=== PATIENT | male | born 1945 | race Caucasian/White ===

== ENCOUNTER 2019-03-10 16:52 | Inpatient (IN) | payer MEDICARE, SELFPAY ==
[2019-03-10] VITALS (8 sets, daily range): BP systolic 107–142; BP diastolic 46–71; PULSE 62–68; RESP 12–18; TEMP 36.4–37.1; O2SAT 92–98; BMI 30.8
--- NOTE | ~2019-03-10 | US_ITS ---
EXAMINATION: US carotid duplex BI EXAM DATE: 03/11/2019 15:01 INDICATION: Altered mental status, aphasia. TECHNIQUE: Grayscale, color and pulsed Doppler images of the cervical carotid arteries were obtained . The degree of vessel stenosis is placed in one of the following categories: normal, <50% stenosis, 50-69% stenosis, >=70% stenosis but less than near-occlusion, near-occlusion, or occlusion. Note that percent stenosis relative to normal distal artery lumen diameter is indirectly measured from velocit y measurements as described by Paul, et al. Radiology 2003; 229:340-346. Comparison is made to prior examination from 12/31/2016. FINDINGS: RIGHT SIDE: Right common carotid artery peak systolic velocity (PSV in cm/s): 81 Right bulb/internal carotid artery peak systolic velocity (PSV in cm/s): 82 Right internal carotid artery end diastolic velocity (EDV in cm/s): 10 Right ICA/CCA peak systolic ratio: 1.0 Right external carotid artery peak systolic velocity (PSV in cm/s): 49 Right vertebral artery antegrade flow: yes There is mild carotid bulb plaque. Velocity and Doppler waveforms in the common and internal carotid arteries is normal. LEFT SIDE: Left common carotid artery peak systolic velocity (PSV in cm/s): 37 Left bulb/internal carotid artery peak systolic velocity (PSV in cm/s): 102 Left internal carotid artery end diastolic velocity (EDV in cm/s): 16 Left ICA/CCA peak systolic ratio: 2.7 Left external carotid artery peak systolic velocity (PSV in cm/s): 148 Left vertebral artery antegrade flow: yes There is mild carotid bulb plaque. Velocity and Doppler waveforms in the common and internal carotid arteries is normal. IMPRESSION: 1. Less than 50 percent stenosis in the right internal carotid artery. 2. Less than 50 percent stenosis in the left internal carotid artery. > Reviewed, dictated and finalized at location A. TLE FILLER
--- NOTE | ~2019-03-10 | MR_ITS ---
EXAMINATION: MR cervical spine wo con EXAM DATE: 03/12/2019 13:23 INDICATION: Paraplegia. Altered mental status. TECHNIQUE: Multi-sequential, multiplanar MR images of the cervical spine were obtained without contra st. Axial T2, axial T2 MERGE sequence. Sagittal T1, T2, T2 fat saturation images also obtained. Th ere is no prior study for comparison. FINDINGS: Exam is limited due to motion. The C3 and 4 vertebral bodies appear partially fused. C5-7 vertebral bodies also likely partially fused. There is moderate loss of the C4-5 disc height with mil dly bulging disc, mild central canal stenosis and probably at least moderate bilateral neural foramin al stenosis at that level. Lesser spondylosis at other levels. The vertebral bodies are aligned in th e AP dimension. The spinal cord signal intensity and intrinsic morphology is normal. Cervicomedullary junction is normal in appearance. Level by level evaluation: Motion makes axial images essentially uninterpretable. IMPRESSION: C4-5 mild central canal stenosis and at least moderate neural foraminal stenosis. Lesser spondylosis other levels. Normal cord signal. Reviewed, dictated and finalized at location A. IAC CATH TECHNOLOGIST IMPRESSION: C4-5 mild central canal stenosis and at least moderate neural fora tyrel stenosis. Lesser spondylosis other levels. Normal cord signal.
--- NOTE | ~2019-03-10 | MR_ITS ---
EXAMINATION: MR lumbar spine wo con EXAM DATE: 03/12/2019 13:23 INDICATION: Paraplegia. Low back pain. TECHNIQUE: Multi-sequential, multiplanar MR images of the lumbar spine were obtained without contrast . Sagittal T1, T2, T2 fat saturation images. Axial T2 weighted images. There is no prior study for comparison. FINDINGS: Exam is severely limited from motion. There is mild to moderate lumbar disc disease. Possib le moderate mid lumbar central canal stenosis L2-3, L3-4 and L4-5. L3-4 moderate bilateral neural for aminal stenosis, probably less at the other lumbar levels. Overall mild to moderate lumbar facet arth ropathy. IMPRESSION: Significantly limited exam with overall moderate lumbar spondylosis. Reviewed, dictated and finalized at location A. MOTIVE LOT ATTENDANT IMPRESSION: Significantly limited exam with overall moderate lumbar spondylosi s.
--- NOTE | ~2019-03-10 | MR_ITS ---
EXAMINATION: MR brain/brain stem wo con EXAM DATE: 03/11/2019 13:05 INDICATION: Expressive aphasia. Slurred speech. TECHNIQUE: Magnetic resonance imaging (MRI) of the brain/brain stem obtained without contrast. Cari al T1, axial diffusion, gradient echo (T2*), T1, T2, FLAIR sequences obtained. Comparison is made to prior examination from 06/18/2017. FINDINGS: Study is limited due to patient motion. There is no acute intraparenchymal hemorrhage. No evidence of intraparenchymal brain mass lesion. No evidence of acute infarction. Please note that i nitial head CT has limited sensitivity for small or acute infarctions. There is mild periventricular and subcortical hypodensity, nonspecific but probably related to small vessel ischemic disease. The re is ventricular prominence out of proportion to sulci which is suspected most likely central atroph y rather than hydrocephalus. Normal pressure hydrocephalus cannot be excluded (clinical triad ataxia /gait disturbance, dementia, urinary incontinence). There is intracranial carotid arteriosclerosis. There are no extra-axial collections. There is no mass effect or midline shift. The orbits are un remarkable. Soft tissue is unremarkable. The visualized sinuses and mastoid air cells are well aera brook. There is no interval change. IMPRESSION: 1. No acute intracranial findings. 2. Chronic age related findings. Reviewed, dictated and finalized at location A. ER REGISTRAR
--- NOTE | ~2019-03-10 | XR_ITS ---
EXAMINATION: XR chest 1V portable EXAM DATE: 03/10/2019 18:32 INDICATION: Transient alteration of awareness. Shortness of breath. TECHNIQUE: Portable AP frontal chest x-ray was obtained. Comparison is made to prior examination from 05/07/2018. FINDINGS: Scattered mild to moderate bibasilar airspace disease, some of which is chronic left basila r atelectasis or scarring. Overall similar appearance compared to study from April by last year. Diff icult to exclude superimposed edema or pneumonia. There is no pneumothorax suspected. Cardiomediastin al silhouette is normal. There are bony degenerative changes. IMPRESSION: Scattered mild to moderate bibasilar airspace disease, similar appearance compared to pr ior exam, at least partly chronic atelectasis or scarring. Difficult to exclude superimposed acute pr ocess. Reviewed, dictated and finalized at location A. RIAL INSPECTOR IMPRESSION: Scattered mild to moderate bibasilar airspace disease, similar yanira earance compared to prior exam, at least partly chronic atelectasis or scarring . Difficult to exclude superimposed acute process.
--- NOTE | ~2019-03-10 | CT_ITS ---
EXAMINATION: CT brain wo con EXAM DATE: 03/10/2019 18:53 INDICATION: Transient alteration of awareness. Confusion. TECHNIQUE: Spiral CT of the head was performed without contrast. Axial, coronal and sagittal images were reviewed. The dose-length product (DLP) for this examination was 681.00 mGy-cm. The exposure w as tailored according to patient size, and iterative reconstruction (ASIR) was used as additional dos e reduction technique. Comparison is made to prior examination from 09/07/2017. FINDINGS: There is no acute intraparenchymal hemorrhage. No evidence of intraparenchymal brain mass lesion. No evidence of acute infarction. Please note that initial head CT has limited sensitivity f or small or acute infarctions. There is mild periventricular and subcortical hypodensity, nonspecific but probably related to small vessel ischemic disease. There is moderate prominence of the sulci a nd ventricles related to cerebral atrophy. There is intracranial carotid arteriosclerosis. There a re no extra-axial collections. There is no mass effect or midline shift. The orbits are unremarkabl e. Soft tissue is unremarkable. The visualized sinuses and mastoid air cells are well aerated. IMPRESSION: 1. No acute intracranial findings. 2. Chronic age related findings. Reviewed, dictated and finalized at location A. QUE FURNITURE RESTORER
--- NOTE | 2019-03-10 17:20 | ECG_ITS ---
Measurements Intervals Mallie Rate: 64 P: 30 RI: 245 QRS: 60 QRSD: 117 T: 83 QT: 456 QTc: 471 Interpretive Statements SINUS RHYTHM WITH FIRST DEGREE AV BLOCK INCOMPLETE RIGHT BUNDLE BRANCH BLOCK BORDERLINE R WAVE PROGRESSION, ANTERIOR LEADS ST-T WAVE ABNORMALITY IN ANTERIOR LEADS- CONSIDER ISCHEMIA ABNORMAL ECG Electronically Signed On 03-10-2019 19:45:00 COLOR DRUM WORKER by Luis M Hurd D.O.
[2019-03-10 17:32] LABS: Basophils Absolute Auto 0.1 K/mm3 (0.0-0.1); Basophils Percent Auto 1.3 % (0.2-1.2); Eosinophils Absolute Auto 0.3 K/mm3 (0-0.3); Eosinophils Percent Auto 3.4 % (0-4.4); Hematocrit 39.6 % (42.0-52.0); Immature Granulocyte Absolute 0.03 K/mm3 (0.00-0.031); Immature Granulocyte Percent A 0.4 % (0-0.5); Lymphocytes Absolute Auto 2.77 K/mm3 (0.9-3.2); Lymphocytes Percent Auto 33.3 % (18.3-44.2); Mean Corpuscular HGB Conc 32.8 g/dl (32-36); Mean Corpuscular Hemoglobin 30.2 pg (26-34); Mean Corpuscular Volume 91.9 fl (80-100); Mean Platelet Volume 8.8 fl (7.4-10.4); Monocytes Absolute Auto 0.8 K/mm3 (0.1-0.6); Monocytes Percent Auto 9.5 % (2.6-8.5); Neutrophils Absolute Auto 4.3 K/mm3 (1.3-6.7); Neutrophils Percent Auto 52.1 % (45.5-73.1); Platelet Count Result 284 k/mm3 (150-375); Red Blood Count 4.31 M/mm3 (4.6-6.20); Red Cell Distribution Width 12.4 % (11.5-14.5); White Blood Count 8.3 K/mm3 (4.5-10.0)
[2019-03-10 17:45] LABS: Alanine Aminotransferase 14 U/L (4-50); Alkaline Phosphatase 66 U/L (38-126); Aspartate Amino Transferase 31 U/L (17-59); Bilirubin,Total 0.5 mg/dL (0.2-1.3); Blood Urea Nitrogen 21 mg/dL (9-20); Calcium 9.4 mg/dL (8.4-10.2); Carbon Dioxide 30 mmol/L (22-30); Chloride 92 mmol/L (98-107); Estimated Glomerular Filt Rate > 60; Glucose 83 mg/dL (75-110); Potassium 4.5 mmol/L (3.4-5.0); Sodium 132 mmol/L (137-145)
--- NOTE | 2019-03-10 18:09 | ED.WEAKNESS ---
HPI - Weakness General Chief complaint: Weakness Stated complaint: weakness Time Seen by Provider: 03/10/19 18:00 Source: patient, family (Son at bedside) and RN notes reviewed Mode of arrival: wheelchair Limitations: no limitations History of Present Illness HPI Narrative: Pt is a 73 y/o male presenting to the ED c/o generalized weakness. Pt reports he has been experiencing generalized weakness and BLE swelling recently. Pt's son notes the pt has someone form home health care come to his house 3 times a week and has been noting the pt has had difficulty answering questions or responding appropriately. Per son, the pt was unable to state his birthday and was not making sense earlier today at 1500. Pt's son reports the pt was seen by his PCP 2 weeks ago where he was prescribed a muscle relaxer, and notes the pt has been taking them for the past week or so but does not know when exactly he took his last dose. Per son, the pt has not been exhibiting cold Sx's, but does have a rash and a possible yeast infection on his groin in which his PCP is aware of. Pt denies SOB and states he is unable to lay supine due to arthritis pain. Per son, the pt has a Hx of hypothyroid. Onset (ago): unknown Location: generalized Associated symptoms: confusion (Per son), rash (on groin) and other (BLE swelling) Related Data Allergies Allergy/AdvReac Type Severity Reaction Status Date / Time Penicillins Allergy Unknown Verified 09/01/17 12:17 Review of Systems Review of Systems: All systems reviewed & are unremarkable except as noted in HPI and below Constitutional: Constitutional: Reports weakness (Generalized) Respiratory: Respiratory: Denies dyspnea Integumentary/Breasts: Skin/Breast: Reports swelling (BLE) and Reports rash (on groin) Neurologic: Reports confusion (Per son) [facility] Past Medical History Medical History Arthritis BPH (benign prostatic hyperplasia) Cataract CHF (congestive heart failure) Cyst Removed Depression Diabetes mellitus Foot fracture, right Gallbladder disease HLD (hyperlipidemia) HTN (hypertension) Hypothyroid Pneumonia Seasonal allergies Surgical History Surgical History H/O left knee surgery History of cholecystectomy Social History Social History Smoking status: Former smoker Smoking end date: 02/16/04 Alcohol intake: current Exam Narrative: Exam Narrative: APPEARANCE: No acute distress, nontoxic, resting in bed EYES: EOMI HEENT: Normocephalic, atraumatic, OMM RESPIRATORY: No respiratory distress crackles in bilateral lung bases, no rhonchi CARDIOVASCULAR: Regular rate and rhythm without murmurs rubs or gallops. ABDOMINAL: Soft, nontender, nondistended, no rebound or guarding MUSCULOSKELETAl: Moves all extremities. No clubbing, cyanosis 3+ edema of the bilateral lower extremities NEURO: Awake and alert x 3. Following commands, speech normal, no focal deficits SKIN:: Warm, dry. No rashes lesions or abrasions PSYCHIATRIC: Normal affect/mood, Course Course Emergency Course: Discussed with son. Patient had been to PCP earlier this week secondary to chronic bad back and be placed on Flexeril. He states he called earlier today and the patient has been very confused she has been increasingly weak over the past week as well as have increased swelling in his legs Discussed with patient and family results of workup and diagnosis. Discussed need for admission. Patient and family understand and agree to current treatment plan Consultations Consultation #1: Discussed case with Hospitalist Dr. Luke. Accepted the pt for admission. Date: 03/10/19 Time: 21:38 Vital Signs Vital signs: Vital Signs Temperature 98.0 F 03/10/19 17:00 Pulse Rate 66 03/10/19 17:00 Respiratory Rate 15 03/10/19 17:00 Blood Pressure 107/59 L 03/10/19 17:00 Pulse Oximetry 95 03/10/19 17:00
[2019-03-10 18:36] LABS: Prothrombin Time 13.2 Seconds (11.1-14.7)
[2019-03-10 18:37] LABS: Partial Thromboplastin Time 39.2 SECONDS (22.3-36.8)
[2019-03-10 18:44] LABS: NT Pro B Type Natriuretic Pept 1640 PG/ML (5-100)
[2019-03-10 19:39] LABS: Add Urine Microscopic? YES; Appearance Urine Clear (Clear); Bilirubin Urine Negative (Negative); Blood Urine Negative (Negative); Color Urine Yellow (Yellow); Glucose Urine UA Negative (Negative); Ketones Urine Negative (Negative); Leukocyte Esterase Ur Negative LEU/UL (Negative); Mucus Urine Rare /lpf; Nitrate Urine Negative (Negative); Protein Urine 1+ mg/dL (Negative); Urobilinogen Urine Negative mg/dL (<2.0); WBC Urine 0-3 /hpf
--- NOTE | 2019-03-10 19:41 | PC.NURSE ---
Assumed care of pt at this time. report from Sri REYES RN
[2019-03-10 20:39] LABS: Troponin I < 0.012 ng/mL (0.000-0.034)
[2019-03-10] MEDS: FUROSEMIDE INJ 40 MG/4 ML VIAL IV PUSH (22:15)
--- NOTE | 2019-03-10 23:32 | ADMGEN ---
This patient, Joe Vigil, was admitted to 3 [facility] Surg Room 323-01 at 2310. Patient/family oriented to hospital policies and general routines including ID bracelet, bed and alarms, visiting hours, pain management, procedures, bathroom and other care routines, personal items, smoking policy, room service/diet, and visiting hours. Valuables list has been completed. Information on how to activate the Rapid Response Team has been discussed. Patient/Family are encouraged to report perceived risks to care and to ask questions if they do not understand what they are told or what they should do.
[2019-03-11] VITALS (8 sets, daily range): BP systolic 131–136; BP diastolic 52–61; PULSE 60–72; RESP 18–20; TEMP 36.5–36.8; O2SAT 95–98
--- NOTE | 2019-03-11 | ECHO_ITS ---
Patient Info Name: Joe Vigil Age: 73 years : 1945 Gender: Male Ht: 71 in Wt: 223 lbs BSA: 2.28 m2 BP: 136 / 52 mmHg Heart Rhythm: Sinus Rhythm Technical Quality: Poor Exam Date: 03/11/2019 2:20 PM Exam Location: [facility] Pulmonary Patient Status: Inpatient Admit Date: 03/11/2019 Staff Ordering Physician: Meme Jordan PA-C Instructor Traffic Safety: Stephanie Byrd RDCS Attending Provider: Meme Jordan PA-C Referring Physician: Nikki DE LA TORRE; Exam Type: CA echo dop bubble study w con Study Info Complete two-dimensional, color flow and Doppler transthoracic echocardiogram is performed with contrast to opacify the left ventrical and to improve the deliniation of the left ventrical endocarial boarders. Complete two-dimensional, color flow and Doppler transthoracic echocardiogram is performed with agitated saline. Contrast/Agitated Saline Contrast/Ag. Saline: Agitated Saline Amount: 2.00 ml Reason for Poor Study: patient body habitus Summary 1. Left ventricular chamber dimension is normal. 2. Left ventricular systolic function is normal, estimated at >70%. 3. There is mildly increased left ventricular wall thickness. 4. The left ventricular diastolic function is grade II diastolic dysfunction. 5. More pronounced basal septal hypertrophy is seen. 6. Right ventricular chamber dimension is moderately enlarged. 7. Left atrial chamber dimension is severely enlarged. 8. Right atrial chamber dimension is moderately enlarged. 9. Intact interatrial septum visualized by agitated saline imaging. 10. There is mild to moderate mitral valve regurgitation. 11. There is moderate aortic valve calcification. 12. There is moderate aortic valve regurgitation. 13. There is mild tricuspid valve regurgitation. 14. There is mild pulmonic regurgitation. Left Ventricle Left ventricular chamber dimension is normal. Left ventricular systolic function is normal, estimated at >70%. There is mildly increased left ventricular wall thickness. The left ventricular diastolic function is grade II diastolic dysfunction. More pronounced basal septal hypertrophy is seen. Right Ventricle Right ventricular chamber dimension is moderately enlarged. Right ventricular systolic function is normal. Left Atria Left atrial chamber dimension is severely enlarged. Right Atria Right atrial chamber dimension is moderately enlarged. Atrial Septum Intact interatrial septum visualized by agitated saline imaging. Aortic Valve The aortic valve is trileaflet. There is no aortic valve stenosis. There is moderate aortic valve regurgitation. There is moderate aortic valve calcification. Pulmonic Valve The pulmonic valve is normal. There is no pulmonic valve stenosis. There is mild pulmonic regurgitation. Mitral Valve The mitral valve has thickened leaflets and calcified annulus. There is no mitral valve stenosis. There is mild to moderate mitral valve regurgitation. Tricuspid Valve The tricuspid valve leaflets are normal. There is no significant tricuspid valve stenosis. There is mild tricuspid valve regurgitation. Pericardium/Pleural The pericardium appears normal. There is trivial pericardial effusion. Aorta The aortic root size at the sinus of Valsalva is normal. Left Ventricular Outflow Tract Name Value Norm
[2019-03-11 01:37] LABS: Troponin I < 0.012 ng/mL (0.000-0.034)
[2019-03-11 04:05] LABS: Basophils Absolute Auto 0.1 K/mm3 (0.0-0.1); Basophils Percent Auto 1.3 % (0.2-1.2); Eosinophils Absolute Auto 0.2 K/mm3 (0-0.3); Hematocrit 37.5 % (42.0-52.0); Hemoglobin 12.5 g/dL (14.0-18.0); Immature Granulocyte Absolute 0.03 K/mm3 (0.00-0.031); Immature Granulocyte Percent A 0.4 % (0-0.5); Lymphocytes Absolute Auto 2.59 K/mm3 (0.9-3.2); Lymphocytes Percent Auto 32.6 % (18.3-44.2); Mean Corpuscular HGB Conc 33.3 g/dl (32-36); Mean Corpuscular Hemoglobin 30.3 pg (26-34); Mean Corpuscular Volume 90.8 fl (80-100); Mean Platelet Volume 9.2 fl (7.4-10.4); Monocytes Absolute Auto 0.9 K/mm3 (0.1-0.6); Monocytes Percent Auto 11.6 % (2.6-8.5); Neutrophils Absolute Auto 4.1 K/mm3 (1.3-6.7); Neutrophils Percent Auto 51.1 % (45.5-73.1); Platelet Count Result 280 k/mm3 (150-375); Red Blood Count 4.13 M/mm3 (4.6-6.20); Red Cell Distribution Width 12.3 % (11.5-14.5); White Blood Count 7.9 K/mm3 (4.5-10.0)
[2019-03-11 04:17] LABS: Blood Urea Nitrogen 23 mg/dL (9-20); Calcium 9.1 mg/dL (8.4-10.2); Carbon Dioxide 27 mmol/L (22-30); Chloride 95 mmol/L (98-107); Estimated CRCL calculation 73 ml/min; Estimated Glomerular Filt Rate > 60; Glucose 90 mg/dL (75-110); Potassium 4.7 mmol/L (3.4-5.0); Sodium 133 mmol/L (137-145)
[2019-03-11 04:30] LABS: Troponin I < 0.012 ng/mL (0.000-0.034)
[2019-03-11] MEDS: LEVOTHYROXINE SODIUM 25 MCG TABLET PO (06:49)
--- NOTE | 2019-03-11 08:30 | PM.IMHP ---
H&P: HPI History of Present Illness Chief complaint: CHF, altered mental status Narrative: Joe Vigil is a 73 year old male with history of hypertension, diabetes mellitus type 2, right-sided congestive heart failure, liver cirrhosis, who presented to the emergency room with symptoms of altered mental status. The patients son, Srinivasa, reports the patient lives alone and he talks to him on the phone 2-3 times per day. Reports 2 weeks ago he saw a primary care provider, not his normal PCP Dr. Harvey but someone else who ordered x-rays for his arthritis in his hips, knees and back and then prescribed the patient Flexeril. Then, over the last 1.5 weeks the patient had been calling him more frequently and acting a little off and more weak. The patient has a caregiver that sees him 3 times per week and had been noticing a worsening decline this week in particular. When the son called yesterday, the patient seemed off and reported he had not been sleeping at all because he is dreaming all night, did not know his birthday, and was telling stories. Patient was then brought to the emergency room for further evaluation and treatment. Initial vitals showed temperature 98?, blood pressure 107/59, heart rate 66, respiratory rate 15, oxygen saturation 95 % on room air. Initial labs showed slight normocytic anemia with a hemoglobin 13, hematocrit 39.6, normal coag other than slightly elevated PTT at 39.2. CMP showed a hyponatremia at 132, otherwise normal. BNP was 1640. Negative troponin x2. Urinalysis showed 1+ protein otherwise normal. Chest x-ray showed scattered mild to moderate bibasilar airspace disease which could be consistent with chronic atelectasis or scarring along with possible acute process. CT brain showed no acute intracranial findings and chronic age-related findings. Patient EKG on arrival showed normal sinus rhythm with first-degree AV block heart rate is 64, incomplete right bundle branch block, some T-wave inversions V1 through V5 and aVL. No acute ST elevation or depression. The patient was admitted into the hospital under observation further workup and evaluation for generalized weakness, altered mental status, and to rule out possible CVA. Code status: Full code POA: Srinivasa Vigil PCP: Dr. Harvey Review of Systems Review of Systems: Narrative: The patient recently had a yeast infection of his groin and was placed on Diflucan/Nystatin. Normally, the patient has trouble going from sitting to standing due to his arthritis. He has a caregiver that comes in 3 times per week for 4 hours and will be increased to 5 times per week. He does fall every once in a while, once every month to two months. He walks with a walker and has a chair in his room and it is hard for him to get out, but he also has a chair lift in the living room he could use. The patient is suppose to starting PT Wednesday at [facility]. All systems reviewed & are unremarkable except as noted in HPI and below PMFSH Past Medical History Medical History Abdominal aortic aneurysm Arthritis BPH (benign prostatic hyperplasia) Cataract CHF (congestive heart failure) Echo 04/2018 showed normal EF 60%, severe enlargement of right ventrile and severe ventricular hypokinesis. Cirrhosis Cyst Removed Depression Diabetes mellitus Foot fracture, right Gallbladder disease HLD (hyperlipidemia) HTN (hypertension) Hypothyroid Pneumonia Seasonal allergies Severe pulmonary arterial systolic hypertension Surgical History Surgical History H/O left knee surgery History of cholecystectomy History of esophagogastroduodenoscopy (EGD) 04/2018 showing gastritis Family History Family History Sibling Colon cancer Mother Congestive heart failure Father Acute myocardial infarction Social History Social History (Revi
[2019-03-11 10:22] LABS: Ammonia < 9 umol/L (9-30)
[2019-03-11] MEDS: TAMSULOSIN HCL 0.4 MG CAPSULE PO (12:03)
[2019-03-11] MEDS: THERAPEUTIC MULTIVITAMINS/MINERALS TAB (*BKC) 1 TABLET PO (12:03)
[2019-03-11] MEDS: PANTOPRAZOLE 40 MG TABLET PO (12:04)
[2019-03-11] MEDS: SPIRONOLACTONE 25 MG TABLET PO (12:04)
[2019-03-11] MEDS: FERROUS SULFATE DRIED 142 MG TABCR PO (12:04)
[2019-03-11] MEDS: MELOXICAM 7.5 MG TABLET 15 MG PO (12:05)
[2019-03-11] MEDS: FINASTERIDE 5 MG TABLET PO (12:05)
[2019-03-11] MEDS: ATORVASTATIN 40 MG TABLET PO (12:05)
[2019-03-11] MEDS: FOLIC ACID 0.4 MG TABLET 0.8 MG PO (12:06)
[2019-03-11] MEDS: ASPIRIN 81 MG ENTERIC TABLET PO (12:09)
[2019-03-11] MEDS: ESCITALOPRAM OXALATE 10 MG TABLET PO (12:09)
[2019-03-11] MEDS: TOLNAFTATE 1% POWDER 45 GM BTL 1 APPLIC TOPICAL ×2 (12:10→16:16)
[2019-03-11] MEDS: PERFLUTREN LIPID MICROSPHERES 1.5 ML VIAL DILUTED TO 10 ML TOTAL VOLUME (15:36)
[2019-03-11 17:01] LABS: Glucose Point of Care 86 (65-105)
--- NOTE | 2019-03-11 17:44 | WPDNEURCNPN ---
Assessment and Plan Assessment and plan (1) Generalized weakness: Code(s): R53.1 - Weakness Status: Acute (2) Diabetes mellitus: Code(s): E11.9 - Type 2 diabetes mellitus without complications Status: Acute (3) HLD (hyperlipidemia): Code(s): E78.5 - Hyperlipidemia, unspecified Status: Acute (4) HTN (hypertension): Code(s): I10 - Essential (primary) hypertension Status: Acute (5) Cirrhosis: Code(s): K74.60 - Unspecified cirrhosis of liver Status: Acute (6) CHF (congestive heart failure): Code(s): I50.9 - Heart failure, unspecified Status: Acute (7) Altered mental status: Code(s): R41.82 - Altered mental status, unspecified Status: Acute (8) Encephalopathy: Code(s): G93.40 - Encephalopathy, unspecified Status: Acute (9) Dementia: Code(s): F03.90 - Unspecified dementia without behavioral disturbance Status: Acute Additional Plan based on the history I obtained I need to rule out that the patient does not have cervical myelopathy and daughter significant lumbar canal stenosis which is hampering his activities at home although he does have an of arthritic changes in his knees and the hips that would be responsible for him being sedentary his mental status is not quite normal it is possible it could be drug effect or it might be that he has been slowly developing dementia along with gait disorder I will examine him again tomorrow and will go from there Pertinent labs and the MRIs have been ordered Consult date: 03/11/19 Time Seen: 17:00 HPI: Joe Vigil is a 73 year old male home I am consulted for changes in the mental status, patient himself is confused but denies any headache nausea vomiting chest pain or shortness of breath The history is obtained from the son and also the record patient has been essentially sedentary for quite some time has been using walker for about a year so initially using a cane and sits most of the time in a recliner he was brought in because of the change in the mental status and had a brain MRI performed which is negative for any evidence of stroke and I do not find any evidence of expressive or receptive aphasia Review of Systems Review of Systems: All systems reviewed & are unremarkable except as noted in HPI and below PMFSH Past Medical History Medical History Abdominal aortic aneurysm Arthritis BPH (benign prostatic hyperplasia) Cataract CHF (congestive heart failure) Echo 04/2018 showed normal EF 60%, severe enlargement of right ventrile and severe ventricular hypokinesis. Cirrhosis Cyst Removed Depression Diabetes mellitus Foot fracture, right Gallbladder disease HLD (hyperlipidemia) HTN (hypertension) Hypothyroid Pneumonia Seasonal allergies Severe pulmonary arterial systolic hypertension Surgical History Surgical History H/O left knee surgery History of cholecystectomy History of esophagogastroduodenoscopy (EGD) 04/2018 showing gastritis Family History Family History Sibling Colon cancer Mother Congestive heart failure Father Acute myocardial infarction Social History Social History Smoking packs per day: 1 Smoking cigarettes per day: 20.0 Years smoked: 40 Smoking pack-years: 40.00 Smoking status: Former smoker Tobacco type: cigarettes Smoking end date: 02/16/04 Alcohol use details: He no longer drinks alcohol. Substance use: never Living arrangements: alone Additional living arrangements comments: He lives in [place] alone and had caregivers that come 3 times per week. His in 05/2017. He has one son, Srinivasa. Occupation/Education: retired Additional occupation/education comments: Use to work for a [employer]
[2019-03-11 19:45] LABS: Creatine Kinase 349 U/L (55-170)
[2019-03-11 20:56] LABS: Folic Acid > 20.0 ng/mL (2.76->20)
[2019-03-12] VITALS (9 sets, daily range): BP systolic 110–132; BP diastolic 49–55; PULSE 65–69; RESP 14–20; TEMP 36.4–36.6; O2SAT 97–99; BMI 10.0
[2019-03-12 00:33] LABS: Glucose Point of Care 97 (65-105)
[2019-03-12 06:20] LABS: Hemoglobin 12.7 g/dL (14.0-18.0); Mean Corpuscular HGB Conc 33.4 g/dl (32-36); Mean Corpuscular Hemoglobin 30.4 pg (26-34); Mean Corpuscular Volume 90.9 fl (80-100); Mean Platelet Volume 9.1 fl (7.4-10.4); Platelet Count Result 249 k/mm3 (150-375); Red Blood Count 4.18 M/mm3 (4.6-6.20); Red Cell Distribution Width 12.1 % (11.5-14.5); White Blood Count 9.8 K/mm3 (4.5-10.0)
[2019-03-12 06:37] LABS: Alanine Aminotransferase 16 U/L (4-50); Albumin Level 3.8 g/dL (3.5-5.1); Alkaline Phosphatase 76 U/L (38-126); Aspartate Amino Transferase 40 U/L (17-59); Bilirubin,Total 0.6 mg/dL (0.2-1.3); Blood Urea Nitrogen 25 mg/dL (9-20); Carbon Dioxide 24 mmol/L (22-30); Chloride 93 mmol/L (98-107); Estimated CRCL calculation 73 ml/min; Estimated Glomerular Filt Rate > 60; Glucose 87 mg/dL (75-110); Potassium 4.3 mmol/L (3.4-5.0); Sodium 129 mmol/L (137-145)
[2019-03-12] MEDS: LEVOTHYROXINE SODIUM 25 MCG TABLET PO (06:39)
[2019-03-12 06:56] LABS: Hemoglobin A1C 5.5 % (<5.7)
[2019-03-12 08:39] LABS: Glucose Point of Care 79 (65-105)
[2019-03-12] MEDS: FOLIC ACID 0.4 MG TABLET 0.8 MG PO (09:15)
[2019-03-12] MEDS: PANTOPRAZOLE 40 MG TABLET PO (09:16)
[2019-03-12] MEDS: TAMSULOSIN HCL 0.4 MG CAPSULE PO (09:16)
[2019-03-12] MEDS: SPIRONOLACTONE 25 MG TABLET PO (09:19)
[2019-03-12] MEDS: ESCITALOPRAM OXALATE 10 MG TABLET PO (09:19)
[2019-03-12] MEDS: ATORVASTATIN 40 MG TABLET PO (09:23)
[2019-03-12] MEDS: ASPIRIN 81 MG ENTERIC TABLET PO (09:23)
[2019-03-12] MEDS: FINASTERIDE 5 MG TABLET PO (09:24)
[2019-03-12] MEDS: FERROUS SULFATE DRIED 142 MG TABCR PO (09:24)
[2019-03-12] MEDS: THERAPEUTIC MULTIVITAMINS/MINERALS TAB (*BKC) 1 TABLET PO (09:24)
[2019-03-12] MEDS: TOLNAFTATE 1% POWDER 45 GM BTL 1 APPLIC TOPICAL ×2 (09:26→17:27)
[2019-03-12 11:46] LABS: Glucose Point of Care 80 (65-105)
[2019-03-12] MEDS: LORAZEPAM INJ 2 MG/ML VIAL (12:50)
--- NOTE | 2019-03-12 15:01 | PM.IMPN ---
Progress Note: A&P Assessment and Plan (1) Altered mental status: Code(s): R41.82 - Altered mental status, unspecified Status: Acute Assessment and Plan: The patient presented with some altered mental status which has been going on for the last week and a half but recently became worse. Patient's family reports his recently placed on Flexeril muscle relaxant and Mobic which could be a possible cause to his altered mental status and generalized weakness. Also on the differential could be acute CVA since he has expressive aphasia and trouble following commands, currently there are no signs of acute infection to be the cause, he has cirrhosis and we will check an ammonia level. Currently the patient is alert oriented x4. Patient's ammonia level was normal, vitamin B12 normal, folic acid normal. TSH is slightly elevated at 5.530, and free T4 is pending. Continue holding any medications that could cause altered mental status. Dr. Hernandez neurology evaluated the patient yesterday and ordered further testing which included cervical spine MRI and lumbar spine MRI to rule out cervical myelopathy and lumbar canal stenosis. Status Q 4 hours. Continue monitoring the patient's symptoms and further workup will be completed as underlying cause. (2) Expressive aphasia: Code(s): R47.01 - Aphasia Status: Acute Assessment and Plan: On examination the patient has some expressive aphasia, slight slurred speech and trouble following commands. Patient's MRI showed no acute CVA, chronic age-related findings. Carotid Dopplers showed less 50% stenosis bilaterally. Echocardiogram showed normal LV systolic function greater than 70%, mildly increased LV wall thickness, LV diastolic dysfunction grade 2. Speech bedside evaluation completed and normal. Dr. Hernandez did not feel that the patient had any abnormality to his speech. Continue monitoring the patient's neuro checks q.4 hours. Continue monitoring his symptoms. (3) Generalized weakness: Code(s): R53.1 - Weakness Status: Acute Assessment and Plan: Family reports increased weakness over the last few weeks could be from sedative medication or from the patient being less mobile than normal secondary to trouble getting out of his recliner chair. Patient's son reports sometimes he cannot get out of his recliner and sits in it for about 12 hours. The patient was supposed to start physical therapy as an outpatient this next week. I have ordered physical therapy and occupational therapy evaluation and treatment. Continue monitoring. (4) Urinary retention: Code(s): R33.9 - Retention of urine, unspecified Status: Acute Assessment and Plan: The patient was noted to have urinary retention yesterday. The patient is on Flomax and finasteride daily. A Farrell catheter was placed secondary to urinary retention. We will continue monitoring the patient's symptoms consider removing Farrell catheter prior to discharge versus keeping Farrell intact and having follow-up with urology in 1 week. (5) CHF (congestive heart failure): Code(s): I50.9 - Heart failure, unspecified Status: Acute Assessment and Plan: Patient's history of right-sided congestive heart failure. Right now he appears well compensated with no leg swelling and chest x-ray does not appear to have any acute pulmonary edema. Patient is otherwise asymptomatic. Will continue with his home diuretic medications and monitor his fluid intake and weights daily. (6) Cirrhosis: Code(s): K74.60 - Unspecified cirrhosis of liver Status: Acute Assessment and Plan: Patient was diagnosed with cirrhosis April of 2018 at that time he had a paracentesis
--- NOTE | 2019-03-12 15:56 | WPDNEUROPN ---
Progress Note: A&P Assessment and Plan (1) Urinary retention: Code(s): R33.9 - Retention of urine, unspecified Status: Acute (2) Dementia: Code(s): F03.90 - Unspecified dementia without behavioral disturbance Status: Acute (3) Encephalopathy: Code(s): G93.40 - Encephalopathy, unspecified Status: Acute (4) Generalized weakness: Code(s): R53.1 - Weakness Status: Acute (5) Diabetes mellitus: Code(s): E11.9 - Type 2 diabetes mellitus without complications Status: Acute (6) HLD (hyperlipidemia): Code(s): E78.5 - Hyperlipidemia, unspecified Status: Acute (7) HTN (hypertension): Code(s): I10 - Essential (primary) hypertension Status: Acute (8) Cirrhosis: Code(s): K74.60 - Unspecified cirrhosis of liver Status: Acute (9) CHF (congestive heart failure): Code(s): I50.9 - Heart failure, unspecified Status: Acute (10) Altered mental status: Code(s): R41.82 - Altered mental status, unspecified Status: Acute Additional Plan results of the MRI of the cervical spine are pending I hope we are able to get some answers from the cervical spine MRI as the lumbar spine MRI is quite limited patient lives by himself and he will need extensive physical therapy of compression therapy and gait training and probable placement rather than living by himself Review of Systems Constitutional: Constitutional: Reports no additional constitutional complaints Eyes: Eyes: Reports no additional eye complaints ENT: Reports system reviewed and no additional complaints, except as documented Cardiovascular: Cardiovascular: Reports no additional cardiovascular complaints Respiratory: Respiratory: Reports no additional respiratory complaints Gastrointestinal: Gastrointestinal: Reports no additional gastrointestinal complaints Genitourinary: Comments: patient has a Farrell catheter placed I am not really sure why because he is really does not have any specific complains about the urine Musculoskeletal: Musculoskeletal: Reports no additional musculoskeletal complaints Integumentary/Breasts: Skin/Breast: Reports system reviewed and no additional complaints, except as docu Neurologic: Comments: is Mental State examination is much better with the normal cranial examination however abnormal musculoskeletal examination limitation of the range of motions of the lumbar spine knees hips and the ankles with 1 to 2+ reflexes and difficult to assess with the Babinski sign is positive were not Exam Const: General: comfortable and no acute distress HENMT: General nose exam: Normal nares present Mouth: Yes moist mucous membranes Eyes: General: appearance normal, both eyes and all related structures Neck: Neck: supple and no JVD Resp: Effort & Inspection: normal respiratory effort Auscultation: clear to auscultation bilaterally Cardio: Rate: regular rate Rhythm: regular rhythm GI: Auscultation: normal bowel sounds Urinary Catheter: Urinary Catheter: patent and draining Skin: General skin exam: normal color and no rashes or lesions noted Neuro: Other: mental status examination is much better than yesterday, cranial examination is normal He has generalized weakness lower extremities more so than the upper extremities however he was not cooperative for the MRI of the lumbar spine which is limited in its interpretation results of the MRI of the cervical spine are pending Extrem: Other: limited range of motions of his back knees hips ankles likewise limited range of motion of his neck Psych: Mental Status: mental status grossly normal Objective Data Vital Signs Vital Signs: Vital Signs - 24 hr 03/11/19 20:00 03/11/19 21:43 03/12/19 00:00 Temperature 36.7 C Pulse Rate 70 71 67 Respiratory Rate 18 Blood Pressure 133/61 Pulse Oximetry 95 03/12/19 04:00 03/12/19 06:00 03/12/19 08:00 Temperature 36.4 C Puls
[2019-03-12 17:09] LABS: Glucose Point of Care 96 (65-105)
[2019-03-12 19:33] LABS: Free T4 Free Thyroxine Reflex 0.68 ng/dL (0.78-2.19)
[2019-03-12 23:47] LABS: Glucose Point of Care 120 (65-105)
[2019-03-13] VITALS: PULSE 66
[2019-03-13 04:12] VITALS: PULSE 65
[2019-03-13 05:26] VITALS: BP 111/58; PULSE 66; RESP 18; TEMP 36.4; O2SAT 97
[2019-03-13] MEDS: LEVOTHYROXINE SODIUM 25 MCG TABLET PO (05:28)
[2019-03-13 06:25] LABS: Basophils Absolute Auto 0.1 K/mm3 (0.0-0.1); Basophils Percent Auto 1.4 % (0.2-1.2); Eosinophils Absolute Auto 0.4 K/mm3 (0-0.3); Eosinophils Percent Auto 3.9 % (0-4.4); Hematocrit 37.6 % (42.0-52.0); Hemoglobin 12.7 g/dL (14.0-18.0); Immature Granulocyte Absolute 0.03 K/mm3 (0.00-0.031); Immature Granulocyte Percent A 0.3 % (0-0.5); Lymphocytes Absolute Auto 2.42 K/mm3 (0.9-3.2); Lymphocytes Percent Auto 26.1 % (18.3-44.2); Mean Corpuscular HGB Conc 33.8 g/dl (32-36); Mean Corpuscular Hemoglobin 30.1 pg (26-34); Mean Corpuscular Volume 89.1 fl (80-100); Mean Platelet Volume 9.1 fl (7.4-10.4); Monocytes Percent Auto 10.2 % (2.6-8.5); Neutrophils Absolute Auto 5.4 K/mm3 (1.3-6.7); Neutrophils Percent Auto 58.1 % (45.5-73.1); Platelet Count Result 253 k/mm3 (150-375); Red Blood Count 4.22 M/mm3 (4.6-6.20); White Blood Count 9.3 K/mm3 (4.5-10.0)
[2019-03-13 06:35] LABS: Potassium 4.2 mmol/L (3.4-5.0)
[2019-03-13 06:47] LABS: Blood Urea Nitrogen 26 mg/dL (9-20); Carbon Dioxide 24 mmol/L (22-30); Chloride 93 mmol/L (98-107); Estimated CRCL calculation 80 ml/min; Estimated Glomerular Filt Rate > 60; Glucose 90 mg/dL (75-110); Sodium 130 mmol/L (137-145)
[2019-03-13 08:00] VITALS: PULSE 69
[2019-03-13 08:31] LABS: Glucose Point of Care 89 (65-105)
[2019-03-13] MEDS: THERAPEUTIC MULTIVITAMINS/MINERALS TAB (*BKC) 1 TABLET PO (09:51)
[2019-03-13] MEDS: FOLIC ACID 0.4 MG TABLET 0.8 MG PO (09:51)
[2019-03-13] MEDS: ESCITALOPRAM OXALATE 10 MG TABLET PO (09:52)
[2019-03-13] MEDS: PANTOPRAZOLE 40 MG TABLET PO (09:52)
[2019-03-13] MEDS: SPIRONOLACTONE 25 MG TABLET PO (09:52)
[2019-03-13] MEDS: FINASTERIDE 5 MG TABLET PO (09:52)
[2019-03-13] MEDS: ATORVASTATIN 40 MG TABLET PO (09:52)
[2019-03-13] MEDS: ASPIRIN 81 MG ENTERIC TABLET PO (09:52)
[2019-03-13] MEDS: FERROUS SULFATE DRIED 142 MG TABCR PO (09:52)
[2019-03-13] MEDS: TAMSULOSIN HCL 0.4 MG CAPSULE PO (09:52)
[2019-03-13] MEDS: TOLNAFTATE 1% POWDER 45 GM BTL 1 APPLIC TOPICAL ×2 (09:53→18:31)
--- NOTE | 2019-03-13 11:15 | WPDNEUROPN ---
Progress Note: A&P Additional Plan carotd<50%,c.spine mild stenosis,lumbar stenosis on mri of lumbar spine will need therapy and medical supprt at this stage will not handle back surgery Review of Systems Review of Systems: All systems reviewed & are unremarkable except as noted in HPI and below Exam Const: General: comfortable Nutritional Appearance: obese Orientation/consciousness: oriented to person and oriented to place Eyes: General: appearance normal, both eyes and all related structures Pupils: Equal, round and reactive pupils present EOM: EOMs intact bilaterally Direct Ophthalmoscopy: normal light reflex and no photophobia Neck: Neck: full ROM and no lymphadenopathy Thyroid: thyroid normal Resp: Effort & Inspection: able to speak in complete sentences Auscultation: clear to auscultation bilaterally Cardio: Rate: regular rate Rhythm: regular rhythm GI: Auscultation: normal bowel sounds Neuro: General: oriented to person and oriented to place Cranial nerves: Yes CN's II-XII intact bilaterally, Yes Equal, round and reactive pupils present, Yes Nystagmus not present, Yes Midline tongue present and Yes Ability to bilaterally elevate shoulders present Speech: Abnormal speech present (slow) Gait exam (Neuro): Unable to assess gait Motor exam (neuro): 5/5 motor strength present throughout (generally decreased) and Motor fasciculations not present Deep tendon reflexes (DTR's): Right triceps reflex intensity grade: 1+, Left triceps reflex intensity grade: 1+, Rt Biceps (C5, C6): 1+, Left biceps reflex intensity grade: 1+, Right brachioradialis reflex intensity grade: 1+, Left brachioradialis reflex intensity grade: 1+, Right patellar reflex intensity grade: 1+, Left patellar reflex intensity grade: 1+, Right ankle reflex intensity grade: 0 and Left ankle reflex intensity grade: 0 Plantar Reflex Responses: downgoing: bilateral Psych: Affect: normal affect Attitude: cooperative Thought process: Normal thought process present Insight: Fair insight present (Psych) Objective Data Vital Signs Vital Signs: Vital Signs - 24 hr 03/12/19 12:00 03/12/19 14:00 03/12/19 16:00 Temperature 36.6 C Pulse Rate 69 68 68 Respiratory Rate 14 Blood Pressure 120/49 L Pulse Oximetry 97 03/12/19 20:00 03/12/19 21:23 03/13/19 00:00 Temperature 36.6 C Pulse Rate 65 65 66 Respiratory Rate 20 Blood Pressure 132/55 L Pulse Oximetry 98 03/13/19 04:12 03/13/19 05:26 Temperature 36.4 C Pulse Rate 65 66 Respiratory Rate 18 Blood Pressure 111/58 L Pulse Oximetry 97 Intake/Output Intake/Output: Intake & Output 03/10/19 03/11/19 03/12/19 03/13/19 23:59 23:59 23:59 23:59 Intake Total 1910 640 200 Output Total 1775 950 375 Balance 297 -403 -568 Meds/Results Medications: Active Medications Generic Name Dose Route Start Last Admin Trade Name Freq PRN Reason Stop Dose Admin Aspirin 81 mg 03/11/19 09:00 03/13/19 09:52 Aspirin Ec PO 81 mg DAILY JENNIFER Administration Atorvastatin Calcium 40 mg 03/11/19 09:00 03/13/19 09:52 Lipitor PO 40 mg DAILY JENNIFER Administration Dextrose 12.5 gm 03/11/19 09:33 Dextrose 50% Syringe IV PUSH PRN PRN Hypoglycemia Protocol Escitalopram Oxalate 10 mg 03/11/19 09:00 03/13/19 09:52 Lexapro PO 10 mg DAILY JENNIFER Administration Ferrous Sulfate 142 mg 03/11/19 08:00 03/13/19 09:52 Slow Fe 142 Mg PO 142 mg DAILY@0800 JENNIFER Administration Finasteride 5 mg 03/11/19 09:00 03/13/19 09:52 Proscar PO 5 mg DAILY JENNIFER Administration Folic Acid 0.8 mg 03/11/19 09:00 03/13/19 09:51 Folic Acid PO 04/10/19 09:01 0.8 mg DAILY JENNIFER Administration Glucagon 1 mg 03/11/19 09:33 Glucagon For Inj IM PRN PRN Hypoglycemia Protocol Glucose 15 gm 03/11/19 09:33 Glutose 15 PO PRN PRN Hypoglycemia Protocol Dextrose 1,000 mls @ 100 mls/hr 03/11/19 09:33 Dextrose 5%
--- NOTE | 2019-03-13 12:00 | PM.IMPN ---
Progress Note: A&P Assessment and Plan (1) Altered mental status: Code(s): R41.82 - Altered mental status, unspecified Status: Acute Assessment and Plan: The patient presented with some altered mental status which has been going on for the last week and a half but recently became worse. Patient's family reports his recently placed on Flexeril muscle relaxant and Mobic which could be a possible cause to his altered mental status and generalized weakness. Also on the differential could be acute CVA since he has expressive aphasia and trouble following commands, currently there are no signs of acute infection to be the cause, he has cirrhosis and we will check an ammonia level. Currently the patient is alert oriented x3, he would not answer what year it was today otherwise he is acting similar to how he has actived the last few days. Patient's ammonia level was normal, vitamin B12 normal, folic acid normal. TSH is slightly elevated at 5.530, and free T4 was low at 0.68. He is on Levothroxine 25mcg, will increase his Levothyroxine to 44 mcg starting tomorrow and have him check his TSH in 4 weeks. Continue holding any medications that could cause altered mental status. Dr. Hernandez neurology evaluated the patient and ordered Cervical spine MRI showed C4-5 mild central canal stenosis and at least moderate neural foraminal stenosis. Lesser spondylosis other levels. Normal cord signal. Lumbar spine MRI showed Significantly limited exam with overall moderate lumbar spondylosis. Today, the patient is still having altered mental status and sleeping more than the last few days, unable to tell me the year. The patients MRI shows ventricular prominence out of proportion to sulci which is suspected most likely central atrophy rather than hydrocephalus. Normal pressure hydrocephalus cannot be excluded (clinical triad ataxia/gait disturbance, dementia, urinary incontinence). *I talked to the patients son about this possible diagnosis and he would like to wait on getting a spinal tap at this time and he will be at the hospital in a few hours to see how he is doing today. Will order an ABG to look for any CO2 retention causing increased somnolence. Will check another UA after Farrell catheter was placed to rule out catheter associated UTI. Will recheck another ammonia level. Continue monitoring the patient's symptoms and further workup will be completed as underlying cause. (2) Generalized weakness: Code(s): R53.1 - Weakness Status: Acute Assessment and Plan: Family reports increased weakness over the last few weeks could be from sedative medication or from the patient being less mobile than normal secondary to trouble getting out of his recliner chair. Patient's son reports sometimes he cannot get out of his recliner and sits in it for about 12 hours. The patient was supposed to start physical therapy as an outpatient this next week. PT evaluated the patient today and he was a max assist with sitting up in bed and was falling back once he was sitting up at the edge of the bed, and then was a max assist to transfer into a recliner chair. The patient is going to need [facility] upon transfer he is not suitable to be discharged home in this condition. Continue monitoring. (3) Hyponatremia: Code(s): E87.1 - Hypo-osmolality and hyponatremia Status: Acute Assessment and Plan: Patient has had low sodium since arrival at 132. Reviewing his history and last admission 04/2018 his sodium had been normal and had decreased to 133 on discharge. Today, sodium was 130. Will order Urine Sodium, Urine Creatinine, Osmolarity Urine and Serum at this time. He appears euvolemic at this time. Will continue monitoring. (4) Expressive aphasia: Code(s): R47.01 - Aphasia
[2019-03-13 13:41] LABS: Alveolar/Arterial O2 Gradient 30.7 mmHg; Base Excess ABG -0.4 mEq/l (+/-2.0); Carboxyhemoglobin 0.3 % THb (0-2.0); Fractional Inspired Oxygen 21 %; HCO3 ABG 24.5 mEq/l (22.0-26.0); Methemoglobin ABG 0.3 %THb (0-1.5); Oxygen Content ABG 18.1 %vol (16.0-22.0); Oxygen Saturation ABG 93.9 % (95.0-100.0); Oxyhemoglobin 92.7 % THb (90.0-100.0); PCO2 ABG 41.3 mmHg (35.0-45.0); PO2 ABG 69.6 mmHg (80.0-100.0); PO2 FiO2 Ratio Arterial Blood 3.31 %; Reduced Hemoglobin 6.7 %THb (0-5.0); Total Hemoglobin 13.9 g/dL (12.0-18.0); pH ABG 7.391 (7.350-7.450)
[2019-03-13 13:42] LABS: Device ROOM AIR; Modified Allen's Test Pass; Site Drawn RIGHT RADIAL
[2019-03-13 14:00] VITALS: BP 93/48; PULSE 73; RESP 18; TEMP 36.3; O2SAT 96
[2019-03-13 14:04] LABS: Ammonia < 9 umol/L (9-30)
[2019-03-13 16:30] LABS: Add Urine Microscopic? YES; Appearance Urine Cloudy (Clear); Bacteria Urine Trace /hpf; Bilirubin Urine Negative (Negative); Color Urine Amber (Yellow); Glucose Urine UA Negative (Negative); Hyaline Casts Urine 15-19 /lpf; Ketones Urine Negative (Negative); Leukocyte Esterase Ur 2+ LEU/UL (Negative); Mucus Urine Moderate /lpf; Nitrate Urine Negative (Negative); Protein Urine 2+ mg/dL (Negative); RBC Urine 21-50 /hpf (0-2); Squamous Epithelial Cell Urine Rare /hpf (Few)
[2019-03-13 16:39] LABS: Creatinine Urine 301.9 mg/dL
[2019-03-13 16:40] LABS: Blood Urine Negative (Negative)
[2019-03-13 16:49] LABS: Sodium Urine Random 82 meq/L
[2019-03-13 22:00] VITALS: BP 120/65; PULSE 65; RESP 18; TEMP 36.7; O2SAT 95
[2019-03-14] MEDS: LEVOTHYROXINE SODIUM PO (05:49)
[2019-03-14 06:00] VITALS: BP 115/62; PULSE 63; RESP 16; TEMP 36.7; O2SAT 92
[2019-03-14 06:20] LABS: Basophils Absolute Auto 0.1 K/mm3 (0.0-0.1); Basophils Percent Auto 1.4 % (0.2-1.2); Eosinophils Absolute Auto 0.4 K/mm3 (0-0.3); Eosinophils Percent Auto 4.1 % (0-4.4); Hematocrit 36.7 % (42.0-52.0); Hemoglobin 12.5 g/dL (14.0-18.0); Immature Granulocyte Absolute 0.02 K/mm3 (0.00-0.031); Immature Granulocyte Percent A 0.2 % (0-0.5); Lymphocytes Absolute Auto 2.48 K/mm3 (0.9-3.2); Mean Corpuscular HGB Conc 34.1 g/dl (32-36); Mean Corpuscular Volume 88.2 fl (80-100); Mean Platelet Volume 9.1 fl (7.4-10.4); Monocytes Absolute Auto 0.9 K/mm3 (0.1-0.6); Monocytes Percent Auto 9.9 % (2.6-8.5); Neutrophils Percent Auto 56.4 % (45.5-73.1); Platelet Count Result 262 k/mm3 (150-375); Red Blood Count 4.16 M/mm3 (4.6-6.20); Red Cell Distribution Width 12.1 % (11.5-14.5); White Blood Count 8.9 K/mm3 (4.5-10.0)
[2019-03-14 07:08] LABS: Alanine Aminotransferase 21 U/L (4-50); Albumin Level 4.1 g/dL (3.5-5.1); Alkaline Phosphatase 83 U/L (38-126); Aspartate Amino Transferase 57 U/L (17-59); Bilirubin,Total 0.7 mg/dL (0.2-1.3); Blood Urea Nitrogen 28 mg/dL (9-20); Calcium 8.9 mg/dL (8.4-10.2); Carbon Dioxide 26 mmol/L (22-30); Chloride 91 mmol/L (98-107); Estimated CRCL calculation 71 ml/min; Estimated Glomerular Filt Rate > 60; Glucose 94 mg/dL (75-110); Potassium 4.2 mmol/L (3.4-5.0); Sodium 129 mmol/L (137-145)
[2019-03-14] MEDS: SPIRONOLACTONE 25 MG TABLET PO (08:44)
[2019-03-14] MEDS: TAMSULOSIN HCL 0.4 MG CAPSULE PO (08:44)
[2019-03-14] MEDS: ATORVASTATIN 40 MG TABLET PO (08:44)
[2019-03-14] MEDS: PANTOPRAZOLE 40 MG TABLET PO (08:44)
[2019-03-14] MEDS: ESCITALOPRAM OXALATE 10 MG TABLET PO (08:44)
[2019-03-14] MEDS: ASPIRIN 81 MG ENTERIC TABLET PO (08:44)
[2019-03-14] MEDS: FERROUS SULFATE DRIED 142 MG TABCR PO (08:44)
[2019-03-14] MEDS: FINASTERIDE 5 MG TABLET PO (08:44)
[2019-03-14] MEDS: FOLIC ACID 0.4 MG TABLET 0.8 MG PO (08:44)
[2019-03-14] MEDS: THERAPEUTIC MULTIVITAMINS/MINERALS TAB (*BKC) 1 TABLET PO (08:44)
[2019-03-14] MEDS: TOLNAFTATE 1% POWDER 45 GM BTL 1 APPLIC TOPICAL (08:46)
--- NOTE | 2019-03-14 13:06 | PM.DS ---
DS: Diagnosis Admitting Diagnosis Admitting Diagnosis: Altered mental status, unspecified Discharge Diagnosis (1) Altered mental status: Code(s): R41.82 - Altered mental status, unspecified Status: Acute Assessment and Plan: The patient presented with some altered mental status which has been going on for the last week and a half but recently became worse. Patient's family reports his recently placed on Flexeril muscle relaxant and Mobic which could be a possible cause to his altered mental status and generalized weakness. Also on the differential could be acute CVA since he has expressive aphasia and trouble following commands, currently there are no signs of acute infection to be the cause, he has cirrhosis but ammonia levels were normal. Currently the patient is alert oriented x4 today. Patient's ammonia level was normal, vitamin B12 normal, folic acid normal. TSH is slightly elevated at 5.530, and free T4 was low at 0.68. He was on Levothroxine 25mcg; increased his Levothyroxine to 44 mcg, but sent home with 37.5 mcg; recheck his TSH in 4 weeks. Follow up with primary. Continue holding any medications that could cause altered mental status. Dr. Bravo (neurology) evaluated the patient and ordered a cervical spine MRI which showed C4-5 mild central canal stenosis and at least moderate neural foraminal stenosis. Lesser spondylosis other levels. Normal cord signal. Lumbar spine MRI showed Significantly limited exam with overall moderate lumbar spondylosis. The patients brain MRI showed ventricular prominence out of proportion to sulci which is suspected most likely central atrophy rather than hydrocephalus. Normal pressure hydrocephalus could not be excluded (clinical triad ataxia/gait disturbance, dementia, urinary incontinence). Previous discussions with patient's son about this possible diagnosis; son wished to wait on getting a spinal tap at this time. Neurology states he is okay for discharge today. ABG showed no CO2 retention causing increased somnolence. Another UA/urine culture after Farrell catheter was placed to rule out catheter associated UTI. This culture proved to be negative for growth after discharge Ammonia level WNL Will discharge today. (2) Generalized weakness: Code(s): R53.1 - Weakness Status: Acute Assessment and Plan: Family reports increased weakness over the last few weeks. Could be from sedative medication or from the patient being less mobile than normal secondary to trouble getting out of his recliner chair. Patient's son reported sometimes he cannot get out of his recliner and sits in it for about 12 hours. The patient was supposed to start physical therapy as an outpatient this next week. He will be going to [facility] today PT evaluated the patient during this stay and he was a max assist with sitting up in bed and was falling back once he was sitting up at the edge of the bed, and then was a max assist to transfer into a recliner chair. The patient is going to need [facility] upon discharge as he is not suitable to be discharged home in this condition. (3) Hyponatremia: Code(s): E87.1 - Hypo-osmolality and hyponatremia Status: Acute Assessment and Plan: Patient has had low sodium since arrival at 132. Low but stable today at 129. Reviewing his history and last admission 04/2018 his sodium had been normal and had decreased to 133 on that discharge. He appears euvolemic at this time. BMP in 1 week for further reevaluation. (4) Expressive aphasia: Code(s): R47.01 - Aphasia Status: Acute Assessment and Plan: On examination the patient has some expressive aphasia, slight slurred speech and trouble following commands. Patient's MRI showed no acute CVA, chronic age-related findings. Carotid Dop
[2019-03-16 04:05] LABS: Osmolality, Urine 819 mOsm/kg (50-1200)
== END 2019-03-14 15:00 | DRG 948 ==
LOC: ANHED 21:53 → ANH3MEDSUR 22:16
PROVIDERS: Emergency Medicine; Physician Assistant; Psychiatry & Neurology Neurology; Admitting Provider Internal Medicine; Emergency Provider Emergency Medicine; Visit Provider Internal Medicine
DX: R41.82 Altered mental status, unspecified (principal); R47.01 Aphasia; E87.1 Hypo-osmolality and hyponatremia; I11.0 Hypertensive heart disease with heart failure; E11.9 Type 2 diabetes mellitus without complications; K74.60 Unspecified cirrhosis of liver; I71.4 Abdominal aortic aneurysm, without rupture; I50.810 Right heart failure, unspecified; N40.0 Benign prostatic hyperplasia without lower urinary tract symptoms; F03.90 Unspecified dementia, unspecified severity, without behavioral disturbance, psychotic disturbance, mood disturbance, and anxiety; F32.9 Major depressive disorder, single episode, unspecified; E78.5 Hyperlipidemia, unspecified; E11.36 Type 2 diabetes mellitus with diabetic cataract; H26.9 Unspecified cataract; I27.20 Pulmonary hypertension, unspecified; Z90.49 Acquired absence of other specified parts of digestive tract; Z87.891 Personal history of nicotine dependence; R47.81 Slurred speech; R26.9 Unspecified abnormalities of gait and mobility; M17.0 Bilateral primary osteoarthritis of knee; M16.0 Bilateral primary osteoarthritis of hip; R33.9 Retention of urine, unspecified; R53.1 Weakness; M48.02 Spinal stenosis, cervical region; G31.9 Degenerative disease of nervous system, unspecified
CPT/HCPCS: 36415; 36600; 51701; 70450; 70551; 71045; 72141; 72148; 80048; 80053; 81001; 82140; 82375; 82550; 82570; 82607; 82746; 82805; 83036; 83050; 83880; 83930; 83935; 84300; 84439; 84443; 84484; 85025; 85027; 85610; 85730; 87086; 92507; 92523; 92610; 93005; 93306; 93880; 96374; 96375; 97110; 97161; 97167; 97530; 97535; 99285; A9270; C8929; G0378; J1940; J2060; Q9957

== ENCOUNTER 2019-04-02 10:35 | Inpatient (IN) | payer MEDICARE, SELFPAY ==
[2019-04-02] VITALS (17 sets, daily range): BP systolic 87–130; BP diastolic 38–83; PULSE 68–200; RESP 17–25; TEMP 37.2–37.6; O2SAT 85–100; BMI 24.1
--- NOTE | ~2019-04-02 | CT_ITS ---
EXAMINATION: CT brain wo con INDICATION: Confusion COMPARISON: 03/10/2019 TECHNIQUE: Standard unenhanced head CT. The dose-length product (DLP) was 681.00 mGy-cm. The mA was a djusted according to patient size. Iterative reconstruction technique was employed. FINDINGS: There is no acute intraparenchymal hemorrhage. No evidence of mass lesion. No evidence of a cute infarction. There is mild periventricular and subcortical hypodensity probably related to small vessel ischemic disease. There is moderate prominence of the sulci and ventricles related to cerebral atrophy. Intracranial calcified cerebral atherosclerosis is noted. There are no extra-axial collecti ons. There is no mass effect or midline shift. The orbits and soft tissues are unremarkable. There i s mild mucosal thickening of the paranasal sinuses. IMPRESSION: 1. No acute intracranial abnormality. 2. Age related findings. Reviewed, dictated and finalized at location A. NING TECHNICIAN
--- NOTE | ~2019-04-02 | XR_ITS ---
EXAMINATION: XR chest 1V portable DATE: 04/02/2019 11:05 INDICATION: Palpitations TECHNIQUE: frontal view of the chest was obtained. COMPARISON: Chest radiograph dated 03/10/[address] dated 05/11/2018. FINDINGS: Increased airspace opacities at the right lower lung zone with new opacities in the right mid and upp er lung zones. No significant interval change in opacities in the left lower lung zone likely related to chronic atelectasis/scarring. This results in mild volume loss in the left hemithorax with slight leftward shift of the heart. Small bilateral pleural effusions. No pneumothorax. Mild cardiomegaly. IMPRESSION: 1. New interstitial and airspace opacities throughout the right lung which could represent pneumonia, asymmetric pulmonary edema or combination thereof. 2. Chronic atelectasis/scarring in the bilateral lower lung zones with volume loss in the left lung. 3. Small bilateral pleural effusions. 4. Cardiomegaly. Reviewed, dictated and finalized at location A. [employer] EX[employer]UTIVE [employer] SAL[employer] IMPRESSION: 1. New interstitial and airspace opacities throughout the right lung which coul d represent pneumonia, asymmetric pulmonary edema or combination thereof. 2. Chronic atelectasis/scarring in the bilateral lower lung zones with volume l oss in the left lung. 3. Small bilateral pleural effusions. 4. Cardiomegaly.
--- NOTE | ~2019-04-02 | XR_ITS ---
EXAMINATION: XR chest 1V portable DATE: 04/03/2019 06:05 INDICATION: Pneumonia. Pulmonary edema. TECHNIQUE: frontal view of the chest was obtained. COMPARISON: Chest radiograph dated 04/02/2019 FINDINGS: Diffuse bilateral interstitial and airspace opacities which remain more prominent on the right. Likel y tiny bilateral pleural effusions. No pneumothorax. The cardiomediastinal silhouette is normal. IMPRESSION: 1. Bilateral diffuse interstitial and patchy airspace opacities, right greater than left which could represent pneumonia, asymmetric pulmonary edema or combination thereof superimposed over chronic atel ectasis/scarring in the bilateral lower lung zones. 2. Tiny bilateral pleural effusions. Reviewed, dictated and finalized at location A. EMAN HELPER IMPRESSION: 1. Bilateral diffuse interstitial and patchy airspace opacities, right greater than left which could represent pneumonia, asymmetric pulmonary edema or combin ation thereof superimposed over chronic atelectasis/scarring in the bilateral l ower lung zones. 2. Tiny bilateral pleural effusions.
--- NOTE | 2019-04-02 10:36 | ECG_ITS ---
Measurements Intervals Munger Rate: 103 P: MN: 0 QRS: 61 QRSD: 114 T: 66 QT: 361 QTc: 474 Interpretive Statements ATRIAL FLUTTER/TACHYCARDIA WITH RAPID VENTRICULAR RESPONSE INCOMPLETE RIGHT BUNDLE BRANCH BLOCK ST-T WAVE ABNORMALITY IN ANTEROLATERAL LEADS- CONSIDER ISCHEMIA BASELINE ARTIFACT- I, II, III, AVR, AVL, AVF, V1 ABNORMAL ECG Electronically Signed On 04-02-2019 12:45:36 [employer] by Luis M Hurd D.O.
--- NOTE | 2019-04-02 10:37 | PC.NURSE ---
Placed patient on oxygen 2 Li NC at this time for pulse ox of 84%.
--- NOTE | 2019-04-02 10:37 | PC.NURSE ---
Cardizem 10 mg given IVP at this time for HR of 196.
--- NOTE | 2019-04-02 10:43 | ED.ARRPALP ---
HPI - Arrhythmia/Palpitations General Chief Complaint: Arrhythmia/Palpitations Stated Complaint: ams Time Seen by Provider: 04/02/19 10:43 Source: family (son) and EMS Mode of arrival: EMS Limitations: no limitations History of Present Illness HPI narrative: A 73 y/o male presents to the ED from [facility], via EMS, with c/o palpitations and AMS. Per EMS, they received a call out for respiratory problems and when they arrived they found the pt's HR to be in the 190s. Pt was given Adenosine en route. Per son, he last saw the pt on Wednesday (2 days ago) and he seemed normal at this time. correction staff told the son that the pt was normal at 5:30 AM this morning but when the 7:00 AM nurse went to check on the pt, he seemed out of whack. Pt was experiencing cold symptoms last weekend. Pt was in the hospital in February 2019 for CHF and was given Lasix. Treatments prior to arrival: adenosine Related Data Home Medications Medication Instructions Recorded Confirmed aspirin [Adult Low Dose Aspirin] 81 mg PO DAILY 03/11/19 03/11/19 atorvastatin 40 mg PO DAILY 03/11/19 03/11/19 escitalopram oxalate 10 mg PO DAILY 03/11/19 03/11/19 ferrous sulfate [Slow Release Iron] 45 mg PO DAILY 03/11/19 03/11/19 finasteride 5 mg PO DAILY 03/11/19 03/11/19 folic acid 0.8 mg PO DAILY 03/11/19 03/11/19 multivitamin with minerals [Daily 1 tablet PO DAILY 03/11/19 03/11/19 Multivitamin-Minerals] pantoprazole 40 mg PO DAILY 03/11/19 03/11/19 spironolactone 25 mg PO DAILY 03/11/19 03/11/19 tamsulosin 0.4 mg PO DAILY 03/11/19 03/11/19 ferrous sulfate 140 mg PO DAILY 04/02/19 ibuprofen 04/02/19 quetiapine [Seroquel] 04/02/19 Allergies Allergy/AdvReac Type Severity Reaction Status Date / Time Penicillins Allergy Unknown Unknown Verified 04/02/19 10:49 Review of Systems Review of Systems: All systems reviewed & are unremarkable except as noted in HPI and below Cardiovascular: Comments: Reports: palpitations Neurologic: Comments: Reports: AMS [facility] Past Medical History Medical History Abdominal aortic aneurysm Arthritis BPH (benign prostatic hyperplasia) Cataract CHF (congestive heart failure) Echo 04/2018 showed normal EF 60%, severe enlargement of right ventrile and severe ventricular hypokinesis. Cirrhosis Cyst Removed Depression Diabetes mellitus Foot fracture, right Gallbladder disease HLD (hyperlipidemia) HTN (hypertension) Hypothyroid Pneumonia Seasonal allergies Severe pulmonary arterial systolic hypertension Surgical History Surgical History H/O left knee surgery History of cholecystectomy History of esophagogastroduodenoscopy (EGD) 04/2018 showing gastritis Family History Family History Sibling Colon cancer Mother Congestive heart failure Father Acute myocardial infarction Social History Social History Smoking packs per day: 1 Smoking cigarettes per day: 20.0 Years smoked: 40 Smoking pack-years: 40.00 Smoking status: Former smoker Tobacco type: cigarettes Smoking end date: 02/16/04 Substance use: never Additional living arrangements comments: He lives in [place] alone and had caregivers that come 3 times per week. His in 05/2017. He has one son, Srinivasa. Additional occupation/education comments: Use to work for a [employer] Gender identity (if verbalized by the patient): Male Spiritual care concerns: No Agree to blood products: Yes Comments PCP: Dr. Harvey Exam Narrative: Exam Narrative: General appearance: Well-developed, well-nourished, frequent coughing, labored breathing, the son at the bedside Skin: Normal color Head: Normocephalic, nontraumatic Eyes: Clear conjunctiva ENT: Oropharynx normal, ears normal, nose normal Neck: Supple, nontender Chest
[2019-04-02 11:16] LABS: Alveolar/Arterial O2 Gradient 45.5 mmHg; Base Excess ABG 0.9 mEq/l (+/-2.0); Device NASAL CANNULA; Fractional Inspired Oxygen 21 %; HCO3 ABG 24.4 mEq/l (22.0-26.0); Oxygen Content ABG 16.1 %vol (16.0-22.0); Oxyhemoglobin 91.6 % THb (90.0-100.0); PCO2 ABG 35.3 mmHg (35.0-45.0); PO2 FiO2 Ratio Arterial Blood 2.95 %; Site Drawn LEFT BRACHIAL; Total Hemoglobin 12.5 g/dL (12.0-18.0); pH ABG 7.457 (7.350-7.450)
[2019-04-02 11:28] LABS: Basophils Absolute Auto 0.1 K/mm3 (0.0-0.1); Basophils Percent Auto 0.9 % (0.2-1.2); Eosinophils Absolute Auto 0.2 K/mm3 (0-0.3); Eosinophils Percent Auto 1.5 % (0-4.4); Hemoglobin 11.6 g/dL (14.0-18.0); Immature Granulocyte Absolute 0.03 K/mm3 (0.00-0.031); Immature Granulocyte Percent A 0.2 % (0-0.5); Lymphocytes Absolute Auto 1.27 K/mm3 (0.9-3.2); Lymphocytes Percent Auto 9.5 % (18.3-44.2); Mean Corpuscular HGB Conc 33.1 g/dl (32-36); Mean Corpuscular Hemoglobin 29.9 pg (26-34); Mean Corpuscular Volume 90.2 fl (80-100); Mean Platelet Volume 9.3 fl (7.4-10.4); Monocytes Absolute Auto 0.9 K/mm3 (0.1-0.6); Monocytes Percent Auto 6.9 % (2.6-8.5); Neutrophils Absolute Auto 10.9 K/mm3 (1.3-6.7); Platelet Count Result 270 k/mm3 (150-375); Red Blood Count 3.88 M/mm3 (4.6-6.20); Red Cell Distribution Width 12.7 % (11.5-14.5); White Blood Count 13.4 K/mm3 (4.5-10.0)
[2019-04-02 11:35] LABS: INR 1.1; Prothrombin Time 13.9 Seconds (11.1-14.7)
[2019-04-02 11:36] LABS: Partial Thromboplastin Time 37.1 SECONDS (22.3-36.8)
[2019-04-02 11:38] LABS: Alanine Aminotransferase 19 U/L (4-50); Albumin Level 3.7 g/dL (3.5-5.1); Alkaline Phosphatase 69 U/L (38-126); Aspartate Amino Transferase 40 U/L (17-59); Bilirubin,Total 0.5 mg/dL (0.2-1.3); Blood Urea Nitrogen 13 mg/dL (9-20); Calcium 8.7 mg/dL (8.4-10.2); Carbon Dioxide 27 mmol/L (22-30); Chloride 91 mmol/L (98-107); Estimated Glomerular Filt Rate > 60; Glucose 80 mg/dL (75-110); Potassium 4.2 mmol/L (3.4-5.0); Sodium 131 mmol/L (137-145)
[2019-04-02] MEDS: SODIUM CHLORIDE 0.9% IV 500 ML 999 ML IV CONT (11:39)
[2019-04-02 11:40] LABS: CRP 2.7 mg/dL (<1.0)
[2019-04-02 11:54] LABS: NT Pro B Type Natriuretic Pept 10100 PG/ML (5-100); Troponin I 0.137 ng/mL (0.000-0.034)
[2019-04-02] MEDS: DIGOXIN INJ 250 MCG/ML 2 ML AMP (*BKC) 500 MCG IV PUSH (12:15)
[2019-04-02] MEDS: ENOXAPARIN 100 MG/ML SYRINGE SUB-Q (12:15)
[2019-04-02] MEDS: SODIUM CHLORIDE 0.9% IV 1,000 ML 999 ML IV CONT (12:37)
--- NOTE | 2019-04-02 13:34 | PM.CNCAR ---
Assessment and Plan Assessment and plan (1) HLD (hyperlipidemia): Code(s): E78.5 - Hyperlipidemia, unspecified Status: Acute (2) Atrial fibrillation, new onset: Code(s): I48.91 - Unspecified atrial fibrillation Status: Acute Assessment and Plan: [id number] (age, CHF, h/o hypertension).Start Amiodarone for rate control and possibly rhythm control given hypotension. Would treat with Lovenox 1 mg/kq q 12 hours for anticoagulation. (3) CHF (congestive heart failure): Code(s): I50.9 - Heart failure, unspecified Status: Acute Assessment and Plan: He does have diastolic dysfunction and at risk for diastolic heart failure based on echo done 03/11/19. Given pneumonia and hypotension and since he does not appear to be fluid overloaded despite elevated NTproBNP, would hold off on diuresis at this time. (4) Pneumonia: Code(s): J18.9 - Pneumonia, unspecified organism Status: Acute Assessment and Plan: Chest xray appears to be pneumonia. Probably needs antibiotics but will leave this to annual giving manager or hospitalist. (5) Elevated troponin: Code(s): R79.89 - Other specified abnormal findings of blood chemistry Status: Acute Assessment and Plan: Doubtful this is ACS. Troponin could be elevated based on pneumonia. Trend troponin levels. History of Present Illness History of Present Illness Consult date/time: 04/02/19 13:34 Consult regarding new onset atrial fibrillation with RVR. A 73 y/o male who has a history of cirrhosis of liver, dyslipidemia and was hospitalized last month for altered mental status presents to the ED from [facility], via EMS, with c/o palpitations and AMS. Per EMS, they received a call out for respiratory problems and when they arrived they found the pt's HR to be in the 190s. Pt was given Adenosine en route. Per son, he last saw the pt on Wednesday (2 days ago) and he seemed normal at this time. longterm staff told the son that the pt was normal at 5:30 AM this morning but when the 7:00 AM nurse went to check on the pt, he seemed out of whack. Currently I am seeing patient in ICU as he just got transferred from ED. Son is at bedside. Patient is unable to give useful info but opens eyes and answers yes to everything. He did say he has knee and back pain, which according to his son they are chronic pains. In ED he was given Diltiazem and Digoxin and it slowed his HR to 110-120 bpm but it also dropped his BP to 80-90 systolic. His HR currently is at 110-130 bpm and BP 85/40 mmHg. Chest xray to me shows what looks like pneumonia. EKG showed atrial flutter/tachycardia with RVR, ST-T wave abnormality- conisder anterolateral ischemia. First set troponin is elevated at 0.137. NTproBNP elevated at 10,100. His last echo was 03/11/19 showed EF >70%, grade II diastolic dysfunction, mod RVE/hypokinesis, severe LAE, mild-mod MR, mod AI, mild TR/PI. Reason For Visit: new onset rapid a fib/NSTEMI/hyponatremia/resp vir Review of Systems Constitutional: Constitutional: Reports as per HPI, Reports fatigue and Reports weakness Cardiovascular: Cardiovascular: Reports as per HPI and Denies chest pain Respiratory: Respiratory: Reports as per HPI Gastrointestinal: Gastrointestinal: Reports as per HPI Musculoskeletal: Musculoskeletal: Reports as per HPI and Reports arthralgias Neurologic: Reports as per HPI Comments: Sleepy, lethargic. [facility] Past Medical History Medical History Abdominal aortic aneurysm Arthritis BPH (benign prostatic hyperplasia) Cataract CHF (congestive heart failure) Echo 04/2018 showed normal EF 60%, severe enlargement of right ventrile and severe ventricular hypokinesis. Cirrhosis Cyst Removed Depression Diabetes mellitus Foot fracture, right Gallbladder disease HLD (hyperlipidemia) HTN (hypertension) Hypothyroid Pneumonia Seasonal allergies Severe pulmonary arterial
[2019-04-02] MEDS: hetaSTARCH 6%/NACL 500 ML 250 ML IV CONT (13:50)
[2019-04-02] MEDS: AMIODARONE 360 MG/D5W 200 ML 360 MG/200 ML BAG 33.3 MG IV CONT (14:00)
--- NOTE | 2019-04-02 14:30 | WPDCNINT ---
Assessment and Plan Assessment and plan (1) Atrial fibrillation, new onset: Code(s): I48.91 - Unspecified atrial fibrillation Status: Acute Assessment and Plan: patient with new onset AFib, was given digoxin and diltiazem ED which dropped his pressures. - Started on amiodarone infusions. Currently rate controlled with adequate blood pressures - cardiology has evaluated the patient started him on therapeutic dose of Lovenox for anticoagulation (2) Acute respiratory failure: Qualifiers: Respiratory failure complication: hypoxia Qualified Code(s): J96.01 - Acute respiratory failure with hypoxia Code(s): J96.00 - Acute respiratory failure, unspecified whether with hypoxia or hypercapnia Status: Acute Assessment and Plan: patient initially with respiratory distress a chest x-ray showed possible pneumonia and pulmonary edema - patient on 2 L nasal cannula with good O2 sats, ABGs reviewed - continue supplemental oxygen, if respiratory status declines will place patient on BiPAP (3) Pneumonia: Qualifiers: Pneumonia type: due to unspecified organism Laterality: unspecified laterality Lung location: unspecified part of lung Qualified Code(s): J18.9 - Pneumonia, unspecified organism Code(s): J18.9 - Pneumonia, unspecified organism Status: Acute Assessment and Plan: diffuse infiltrates on the right side could be pneumonia versus asymmetric pulmonary edema. - given elevated white count, elevated CRP and chest x-ray findings patient started on cefepime, azithromycin and vancomycin, will deescalate if cultures are negative (4) Elevated troponin: Code(s): R79.89 - Other specified abnormal findings of blood chemistry Status: Acute Assessment and Plan: 1st set of elevated troponin, could be related to AFib RVR, will trend troponin levels. Cardiology following the patient - continue aspirin (5) Diabetes mellitus: Qualifiers: Diabetes mellitus type: type 2 Diabetes mellitus lobsterman insulin use: without lobsterman use Diabetes mellitus complication status: without complication Qualified Code(s): E11.9 - Type 2 diabetes mellitus without complications Code(s): E11.9 - Type 2 diabetes mellitus without complications Status: Acute Assessment and Plan: Accu-Cheks and sliding scale insulin (6) HLD (hyperlipidemia): Qualifiers: Hyperlipidemia type: unspecified Qualified Code(s): E78.5 - Hyperlipidemia, unspecified Code(s): E78.5 - Hyperlipidemia, unspecified Status: Acute Assessment and Plan: continue atorvastatin (7) HTN (hypertension): Qualifiers: Hypertension type: essential hypertension Qualified Code(s): I10 - Essential (primary) hypertension Code(s): I10 - Essential (primary) hypertension Status: Acute Assessment and Plan: will hold all anti hypertensives at this time as patient was hypotensive after receiving diltiazem (8) CHF (congestive heart failure): Code(s): I50.9 - Heart failure, unspecified Status: Acute Assessment and Plan: echocardiogram done on 03/11/2019 showed EF of 70%, grade 2 diastolic dysfunction, right ventricular chamber moderately enlarged, left atrial chamber severely enlarged, right atrial chamber moderately enlarged. Moderate aortic valve regurgitation - cardiology following the patient (9) Altered mental status: Qualifiers: Altered mental status type: unspecified Qualified Code(s): R41.82 - Altered mental status, unspecified Code(s): R41.82 - Altered mental status, unspecified Status: Acute Assessment and Plan: according the records patient had altered mental status when EMS arrived. Patient more awake and alert in the ICU, able to answer who the president is and the year. According to the patient's son has mild dementia Additional Plan discussed wit
--- NOTE | 2019-04-02 15:35 | PM.IMHP ---
H&P: HPI History of Present Illness Chief complaint: new onset rapid a fib/NSTEMI/hyponatremia/resp vir Narrative: Joe Vigil is a 73 year old male who is from the [facility]. The patient was complaining of some palpitations and has been altered today. The patient's last admission was 03/11/2019 of this year and the patient was confused at that time as well. Prior to that the patient had been living alone. The patient has been coughing and wheezing. His heart rate was found to be up in the 190s. The patient was given adenosine in route. The patient had been in AFib RVR. He was given 1 time dose of Cardizem and then started on amiodarone drip. Dr. Hurd had been consulted for AFib RVR.Patient was also given to digoxin x1 he was also started on subcu Lovenox. He is also given Zofran. The patient continues to be confused. He is aware that Mr. Hernandez is the president but he is not aware that he is at [facility] ICU. Patient still thinks he is at the care home with his roommate. His white count was noted to be 13.4. After reviewing his chest x-ray does look like some pulmonary edema but worsening consolidation on the right lower lobe radiology read the x-ray as new interstitial and airspace opacities throughout the right lung which could represent pneumonia, asymmetric pulmonary Idalia combination thereof. Chronic atelectasis/scarring the bilateral lower lung zones and volume loss in left lung. Small bilateral pleural effusions. Cardiomegaly. Patient's lowest recorded blood pressure this admission was 91/78. Patient CRP was also elevated.. Patient's troponin is 0.137 and the next was 2.030[place] [address]. Cardiology has been consulted. Date of service 04/02/2019 the patient was given hespan in the emergency room possibly for low blood pressure?? Review of Systems Review of Systems: Narrative: Patient is confused and thinks he is back at the care home with his roommate. Unable to obtain information in the son is not at the bedside at this time. The information was obtained from old records. All systems reviewed & are unremarkable except as noted in HPI and below Constitutional: Constitutional: Reports as per HPI, Reports no additional constitutional complaints and Reports fatigue Eyes: Eyes: Reports as per HPI and Reports no additional eye complaints ENT: Reports system reviewed and no additional complaints, except as documented and Reports Normal hearing present Cardiovascular: Cardiovascular: Reports no additional cardiovascular complaints Respiratory: Respiratory: Reports no additional respiratory complaints and Reports no additional respiratory complaints Gastrointestinal: Gastrointestinal: Reports as per HPI and Reports no additional gastrointestinal complaints Musculoskeletal: Musculoskeletal: Reports no additional musculoskeletal complaints Integumentary/Breasts: Skin/Breast: Reports system reviewed and no additional complaints, except as docu and Reports as per HPI Neurologic: Reports system reviewed and no additional complaints, except as documented, Reports as per HPI and Reports Normal hearing present Psychiatric: Psychiatric: Reports no additional psychiatric complaints and Reports as per HPI Endocrine: Endocrine: Reports no additional endocrine complaints Hematologic/Lymphatic: Hematologic/Lymphatic: Reports no additional hematologic/lymphatic complaints Allergic/Immunologic: Allergic/Immunologic: Reports no additional allergic/immunologic complaints [facility] Past Medical History Medical History (Updated 04/02/19 @ 16:42 by Michelle Jackson NP) Abdominal aortic aneurysm Arthritis BPH (benign prostatic hyperplasia) Cataract CHF (congestive heart failure) Echo 04/2018 showed normal EF 60%, severe enlargement of right ventrile and severe ventricular hypokinesis. Cirrhosis Cyst Removed Depression Diabetes mellitus Foot fracture, right Gallbladder disease HLD (hyperlipidemia) HTN
--- NOTE | 2019-04-02 18:06 | ADMGEN ---
This patient, Joe Vigil, was admitted to Intensive Care Unit-7. Patient/family oriented to hospital policies and general routines including ID bracelet, bed and alarms, visiting hours, pain management, procedures, bathroom and other care routines, personal items, smoking policy, room service/diet, and visiting hours. Valuables list has been completed. Information on how to activate the Rapid Response Team has been discussed. Patient/Family are encouraged to report perceived risks to care and to ask questions if they do not understand what they are told or what they should do.
[2019-04-02 19:31] LABS: Glucose Point of Care 82 (65-105)
[2019-04-02] MEDS: AMIODARONE 360 MG/D5W 200 ML 360 MG/200 ML BAG 16.7 MG IV CONT (20:07)
[2019-04-02] MEDS: ATORVASTATIN 40 MG TABLET PO (20:18)
[2019-04-02] MEDS: QUEtiapine FUMARATE 25 MG TABLET PO (20:18)
[2019-04-02] MEDS: IPRATROPIUM BR 0.02% INH SOLN 0.5 MG/2.5 ML VIAL INHALATION (20:31)
[2019-04-02] MEDS: ENOXAPARIN 80 MG/0.8 ML SYRINGE 75 MG SUB-Q (21:06)
[2019-04-02 23:26] LABS: Glucose Point of Care 81 (65-105)
[2019-04-03] VITALS (25 sets, daily range): BP systolic 103–119; BP diastolic 42–70; PULSE 64–106; RESP 14–22; TEMP 36.2–37.4; O2SAT 91–99
--- NOTE | 2019-04-03 | ECHO_ITS ---
Patient Info Name: Joe Vigil Age: 73 years : 1945 Gender: Male Ht: 70 in Wt: 230 lbs BSA: 2.30 m2 HR: 64 bpm BP: 109 / 55 mmHg Heart Rhythm: Atrial Flutter Technical Quality: Good Exam Date: 04/03/2019 8:18 AM Exam Location: [facility] Patient Status: Inpatient Admit Date: 04/02/2019 Staff Ordering Physician: Luis M Hurd DO [place] Operator: Fredy Bowman RDCS, RT Attending Provider: Zoë Cade MD Referring Physician: Vickey LARSEN; Exam Type: CA echo limited w contrast Study Info Indications I50.9 - Heart failure, unspecified Limited two-dimensional transthoracic echocardiogram is performed. Contrast/Agitated Saline Contrast/Ag. Saline: Definity Amount: 2.00 ml Administered By: Fara Bolaños RN Summary 1. Limited echo to assess for wall motion abnormality and diastolic dysfunction. Therefore please refer to recent echo in Feb 2019 for more details. 2. Left ventricular chamber dimension is mildly enlarged. 3. Left ventricular systolic function is normal, estimated at 65-70%. 4. Definity contrast administered improved wall motion interpretation. 5. The left ventricular diastolic function is abnormal. 6. E/e' 19 is elevated. 7. Atrial flutter. 8. Right ventricular chamber dimension is severely enlarged. 9. Right ventricular systolic function is moderately reduced. 10. Left atrial chamber dimension is moderately enlarged. 11. Right atrial chamber dimension is severely enlarged. 12. There is mild aortic valve regurgitation. 13. There is moderate mitral valve regurgitation. 14. There is moderate tricuspid valve regurgitation. 15. 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 Left Ventricle Limited echo to assess for wall motion abnormality and diastolic dysfunction. Therefore please refer to recent echo in Feb 2019 for more details. Definity contrast administered improved wall motion interpretation. E/e' 19 is elevated. Atrial flutter. Left ventricular chamber dimension is mildly enlarged. Left ventricular systolic function is normal, estimated at 65-70%. The left ventricular diastolic function is abnormal. Right Ventricle Right ventricular chamber dimension is severely enlarged. Right ventricular systolic function is moderately reduced. Left Atria Left atrial chamber dimension is moderately enlarged. Right Atria Right atrial chamber dimension is severely enlarged. Aortic Valve The aortic valve is not well visualized. There is no aortic valve stenosis. There is mild aortic valve regurgitation. Pulmonic Valve There is no pulmonic regurgitation. Mitral Valve There is no mitral valve stenosis. There is moderate mitral valve regurgitation. Tricuspid Valve There is moderate tricuspid valve regurgitation. RVSP is not calculated or measured. Pericardium/Pleural There is no pericardial effusion. 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 The aortic root size at the sinus of Valsalva is normal. Left Ventricular Outflow Tract Name Value Normal LVOT Doppler LVOT Peak Gradient 4 mmHg LVOT Mean Gradient 2 mmHg LVOT VTI
[2019-04-03] MEDS: IPRATROPIUM BR 0.02% INH SOLN 0.5 MG/2.5 ML VIAL INHALATION ×4 (02:20→20:12)
[2019-04-03 04:26] LABS: Basophils Absolute Auto 0.1 K/mm3 (0.0-0.1); Basophils Percent Auto 0.6 % (0.2-1.2); Eosinophils Percent Auto 0.1 % (0-4.4); Hematocrit 34.7 % (42.0-52.0); Hemoglobin 11.4 g/dL (14.0-18.0); Immature Granulocyte Absolute 0.03 K/mm3 (0.00-0.031); Immature Granulocyte Percent A 0.2 % (0-0.5); Lymphocytes Absolute Auto 1.73 K/mm3 (0.9-3.2); Mean Corpuscular HGB Conc 32.9 g/dl (32-36); Mean Corpuscular Hemoglobin 30.2 pg (26-34); Mean Corpuscular Volume 91.8 fl (80-100); Mean Platelet Volume 9.6 fl (7.4-10.4); Neutrophils Absolute Auto 11.5 K/mm3 (1.3-6.7); Neutrophils Percent Auto 80.1 % (45.5-73.1); Platelet Count Result 213 k/mm3 (150-375); Red Blood Count 3.78 M/mm3 (4.6-6.20); Red Cell Distribution Width 12.8 % (11.5-14.5); White Blood Count 14.4 K/mm3 (4.5-10.0)
[2019-04-03 04:41] LABS: Blood Urea Nitrogen 15 mg/dL (9-20); Calcium 7.8 mg/dL (8.4-10.2); Carbon Dioxide 25 mmol/L (22-30); Chloride 95 mmol/L (98-107); Estimated CRCL calculation 76 ml/min; Estimated Glomerular Filt Rate > 60; Glucose 87 mg/dL (75-110); Magnesium 1.6 mg/dL (1.6-2.3); Phosphorus 3.8 mg/dL (2.5-4.5); Potassium 4.3 mmol/L (3.4-5.0); Sodium 130 mmol/L (137-145)
[2019-04-03] MEDS: LEVOTHYROXINE SODIUM 37.5 MCG PO (04:59)
--- NOTE | 2019-04-03 07:00 | ECG_ITS ---
Measurements Intervals [place] Rate: 70 P: IA: 0 QRS: 57 QRSD: 122 T: 74 QT: 471 QTc: 511 Interpretive Statements ATRIAL FLUTTER/TACHYCARDIA INCOMPLETE RIGHT BUNDLE BRANCH BLOCK BORDERLINE ST-T WAVE ABNORMALITY- DIFFUSE LEADS ABNORMAL ECG Electronically Signed On 04-03-2019 10:54:38 PINSETTER MECHANIC AUTOMATIC by Luis M Hurd D.O.
--- NOTE | 2019-04-03 08:02 | PM.PNCARD ---
Progress Note: A&P Assessment and Plan (1) Elevated troponin: Code(s): R79.89 - Other specified abnormal findings of blood chemistry Status: Acute Assessment and Plan: Doubtful this is ACS. Troponin could be elevated based on pneumonia. Trend troponin levels. Obtain limited echo to assess for any new wall motion abnormalities. (2) Pneumonia: Qualifiers: Laterality: unspecified laterality Lung location: unspecified part of lung Pneumonia type: due to unspecified organism Qualified Code(s): J18.9 - Pneumonia, unspecified organism Code(s): J18.9 - Pneumonia, unspecified organism Status: Acute Assessment and Plan: On antibiotics. (3) HTN (hypertension): Qualifiers: Hypertension type: essential hypertension Qualified Code(s): I10 - Essential (primary) hypertension Code(s): I10 - Essential (primary) hypertension Status: Acute (4) CHF (congestive heart failure): Code(s): I50.9 - Heart failure, unspecified Status: Acute Assessment and Plan: He does have diastolic dysfunction and at risk for diastolic heart failure based on echo done 03/11/19. Given pneumonia and hypotension and since he does not appear to be fluid overloaded despite elevated NTproBNP, would hold off on diuresis at this time. (5) Atrial flutter: Code(s): I48.92 - Unspecified atrial flutter Status: Acute Assessment and Plan: [id number] 3 (age, CHF, h/o hypertension).On Amiodarone drip for rate control and possibly rhythm control given hypotension. Would treat with Lovenox 1 mg/kq q 12 hours for anticoagulation. After 24 hours of Amiodarone drip, would change to 200 mg PO BID. Replete Mag with Mag Higinio for low Mag 1.6. Subjective Date/time seen: 04/03/19 08:02 Patient is alert and oriented this morning. Denies chest pain or sob. Telemetry shows atrial flutter with V rate 75 bpm. Exam Const: General: comfortable and no acute distress Neck: Neck: no JVD Carotids: no bruits Resp: Effort & Inspection: normal respiratory effort Auscultation: no rales and diminished lung sounds Cardio: Jugular venous distension: no JVD Rate: regular rate Rhythm: abnormal rhythm Heart sounds: no murmurs Peripheral pulses: dorsalis pedis present GI: GI Palp: No abdominal tenderness and Yes Soft to palpation Extrem: Right lower extremity: no edema Left lower extremity: no edema Objective Data Vital Signs Vital Signs: Vital Signs - 24 hr 04/02/19 10:30 04/02/19 11:56 04/02/19 12:01 Temperature 99 F Pulse Rate 200 H 121 H 115 H Respiratory Rate 25 H 19 20 Blood Pressure 130/56 L 91/78 L 101/83 Pulse Oximetry 85 L 96 96 04/02/19 12:02 04/02/19 12:15 04/02/19 12:16 Temperature Pulse Rate 119 H 124 H 121 H Respiratory Rate Blood Pressure 105/69 Pulse Oximetry 04/02/19 13:12 04/02/19 14:00 04/02/19 16:00 Temperature 99.7 F H 99.6 F Pulse Rate 115 H 114 H 94 Respiratory Rate 19 21 H Blood Pressure 87/38 L 107/55 L 108/64 Pulse Oximetry 99 97 96 04/02/19 18:00 04/02/19 20:00 04/02/19 20:30 Temperature Pulse Rate 86 68 Respiratory Rate 17 19 Blood Pressure 124/69 90/69 L Pulse Oximetry 100 97 97 04/02/19 20:41 04/02/19 20:51 04/02/19 21:56 Temperature Pulse Rate 80 75 78 Respiratory Rate 19 18 Blood Pressure Pulse Oximetry 04/02/19 22:00 04/02/19 23:41 04/03/19 00:00 Temperature 99.6 F 99.3 F Pulse Rate 78 73 69 Respiratory Rate 19 17 21 H Blood Pressure 102/58 L 106/53 L Pulse Oximetry 100 98 97 04/03/19 02:00 04/03/19 02:22 04/03/19 02:32 Temperature Pulse Rate 75 79 77 Respiratory Rate 18 22 H 22 H Blood Pressure 108/60 Pulse Oximetry 97 04/03/19 03:30 04/03/19 04:00 04/03/19 06:00 Temperature 98.9 F Pulse Rate 75 76 77 Respiratory Rate 19 20 20 Blood Pressure 105/61 112/42 L Pulse Oximetry 97 97 98 Intake/Output Intake/Output: Intake & Output
[2019-04-03] MEDS: AMIODARONE 360 MG/D5W 200 ML 360 MG/200 ML BAG 16.7 MG IV CONT (08:14)
[2019-04-03] MEDS: MAGNESIUM SULF 2 GM/WATER 50ML 2 GM/50 ML BAG IVPB (08:15)
[2019-04-03] MEDS: PERFLUTREN LIPID MICROSPHERES 1.5 ML VIAL DILUTED TO 10 ML TOTAL VOLUME IV PUSH (09:18)
--- NOTE | 2019-04-03 09:21 | WPDINTPN ---
Progress Note: A&P Assessment and Plan (1) Atrial fibrillation, new onset: Code(s): I48.91 - Unspecified atrial fibrillation Status: Acute Assessment and Plan: patient with new onset AFib, was given digoxin and diltiazem ED which dropped his pressures. - remains on amiodarone infusion,. Currently rate controlled with adequate blood pressures - appreciate Cardiology evaluation recommendations, - troponins elevated but trending down this morning, cardiology is aware - continue full-dose Lovenox (2) Acute respiratory failure: Qualifiers: Respiratory failure complication: hypoxia Qualified Code(s): J96.01 - Acute respiratory failure with hypoxia Code(s): J96.00 - Acute respiratory failure, unspecified whether with hypoxia or hypercapnia Status: Acute Assessment and Plan: patient initially with respiratory distress a chest x-ray showed possible pneumonia and pulmonary edema - patient on 2 L nasal cannula with good O2 sats, ABGs reviewed - continue supplemental oxygen, if respiratory status declines will place patient on BiPAP (3) Pneumonia: Qualifiers: Pneumonia type: due to unspecified organism Laterality: unspecified laterality Lung location: unspecified part of lung Qualified Code(s): J18.9 - Pneumonia, unspecified organism Code(s): J18.9 - Pneumonia, unspecified organism Status: Acute Assessment and Plan: diffuse infiltrates on the right side could be pneumonia versus asymmetric pulmonary edema. - given elevated white count, elevated CRP and chest x-ray findings patient started on cefepime, azithromycin and vancomycin, will deescalate if cultures are negative - cultures have been obtained and pending (4) Elevated troponin: Code(s): R79.89 - Other specified abnormal findings of blood chemistry Status: Acute Assessment and Plan: elevated troponins, trending down this morning., could be related to AFib RVR, Cardiology aware and following - continue aspirin (5) Diabetes mellitus: Qualifiers: Diabetes mellitus type: type 2 Diabetes mellitus manager terminal insulin use: without manager terminal use Diabetes mellitus complication status: without complication Qualified Code(s): E11.9 - Type 2 diabetes mellitus without complications Code(s): E11.9 - Type 2 diabetes mellitus without complications Status: Chronic Assessment and Plan: Accu-Cheks and sliding scale insulin (6) HLD (hyperlipidemia): Qualifiers: Hyperlipidemia type: unspecified Qualified Code(s): E78.5 - Hyperlipidemia, unspecified Code(s): E78.5 - Hyperlipidemia, unspecified Status: Acute Assessment and Plan: continue atorvastatin (7) HTN (hypertension): Qualifiers: Hypertension type: essential hypertension Qualified Code(s): I10 - Essential (primary) hypertension Code(s): I10 - Essential (primary) hypertension Status: Acute Assessment and Plan: will hold all anti hypertensives at this time as patient was hypotensive after receiving diltiazem - blood pressures have been stable (8) CHF (congestive heart failure): Code(s): I50.9 - Heart failure, unspecified Status: Acute Assessment and Plan: echocardiogram done on 03/11/2019 showed EF of 70%, grade 2 diastolic dysfunction, right ventricular chamber moderately enlarged, left atrial chamber severely enlarged, right atrial chamber moderately enlarged. Moderate aortic valve regurgitation - cardiology following the patient (9) Altered mental status: Qualifiers: Altered mental status type: unspecified Qualified Code(s): R41.82 - Altered mental status, unspecified Code(s): R41.82 - Altered mental status, unspecified Status: Acute Assessment and Plan: according the records patient had altered mental status when EMS arrived. Patient more awake and alert in the ICU, able
[2019-04-03] MEDS: FOLIC ACID 0.4 MG TABLET 0.8 MG PO (09:36)
[2019-04-03] MEDS: TAMSULOSIN HCL 0.4 MG CAPSULE 0.8 MG PO (09:36)
[2019-04-03] MEDS: FERROUS SULFATE 324 MG TABLET PO (09:37)
[2019-04-03] MEDS: PANTOPRAZOLE 40 MG TABLET PO (09:37)
[2019-04-03] MEDS: ESCITALOPRAM OXALATE 10 MG TABLET PO (09:37)
[2019-04-03] MEDS: ASPIRIN 81 MG ENTERIC TABLET PO (09:38)
[2019-04-03] MEDS: ENOXAPARIN 80 MG/0.8 ML SYRINGE 75 MG SUB-Q ×2 (09:38→21:19)
[2019-04-03] MEDS: FINASTERIDE 5 MG TABLET PO (09:38)
[2019-04-03 12:32] LABS: Glucose Point of Care 90 (65-105)
--- NOTE | 2019-04-03 16:54 | PM.IMPN ---
Progress Note: A&P Assessment and Plan (1) Atrial fibrillation, new onset: Code(s): I48.91 - Unspecified atrial fibrillation Status: Acute Assessment and Plan: Currently on amiodarone drip because became hypotensive with diltiazem. Full-dose anticoagulation also. Just had echo in February with normal EF. (2) HCAP (healthcare-associated pneumonia): Code(s): J18.9 - Pneumonia, unspecified organism Status: Acute Assessment and Plan: Asymmetric in with leukocytosis could very well be infectious. Broad-spectrum coverage for healthcare associated pneumonia (3) CHF (congestive heart failure): Code(s): I50.9 - Heart failure, unspecified Status: Acute Assessment and Plan: Echo in February showed normal ejection fraction with some diastolic dysfunction. Continue to monitor closely (4) Acute respiratory failure with hypoxia: Code(s): J96.01 - Acute respiratory failure with hypoxia Status: Acute Assessment and Plan: O2 sat was right at 90% with 2 L nasal cannula and increase respiratory rate to maintain saturation tbus he was hypoxic (5) Elevated troponin: Code(s): R79.89 - Other specified abnormal findings of blood chemistry Status: Acute Assessment and Plan: Probable secondary to atrial fibrillation but could be type 2 UT with with demand ischemia. Cardiology aware and is following Already on aspirin and statin, may consider low-dose beta-kacey (6) Dementia: Code(s): F03.90 - Unspecified dementia without behavioral disturbance Status: Acute Assessment and Plan: Oriented present time but apparently was confused initially might have been when he was slightly hypoxic causing more alteration in his mental status (7) DVT prophylaxis: Code(s): Z29.9 - Encounter for prophylactic measures, unspecified Status: Acute Assessment and Plan: Full-dose Lovenox at present time Subjective Date/time seen: 04/03/19 16:54 Interval history: Date of visit 04/03. 73-year-old white male mild dementia admitted with new onset rapid AFib and when appears to be pneumonia with acute respiratory failure. Feels better this a.m. but still coughing some Exam Narrative: Exam Narrative: Blood pressure 116/70 pulse is 80 sat in 99% on 2 L nasal cannula afebrile Pupils equal reactive light sclera anicteric Lungs clear with faint crackles right posterior base CV slightly irregular much lower than on admission Abdomen soft nontender Extremities without edema distal pulses 1+ Neuro alert for pleasant oriented disease time no focal deficits Objective Data Vital Signs Vital Signs: Vital Signs - 24 hr 04/02/19 18:00 04/02/19 20:00 04/02/19 20:30 Temperature Pulse Rate 86 68 Respiratory Rate 17 19 Blood Pressure 124/69 90/69 L Pulse Oximetry 100 97 97 04/02/19 20:41 04/02/19 20:51 04/02/19 21:56 Temperature Pulse Rate 80 75 78 Respiratory Rate 19 18 Blood Pressure Pulse Oximetry 04/02/19 22:00 04/02/19 23:41 04/03/19 00:00 Temperature 37.6 C 37.4 C Pulse Rate 78 73 69 Respiratory Rate 19 17 21 H Blood Pressure 102/58 L 106/53 L Pulse Oximetry 100 98 97 04/03/19 02:00 04/03/19 02:22 04/03/19 02:32 Temperature Pulse Rate 75 79 77 Respiratory Rate 18 22 H 22 H Blood Pressure 108/60 Pulse Oximetry 97 04/03/19 03:30 04/03/19 04:00 04/03/19 06:00 Temperature 37.2 C Pulse Rate 75 76 77 Respiratory Rate 19 20 20 Blood Pressure 105/61 112/42 L Pulse Oximetry 97 97 98 04/03/19 08:00 04/03/19 09:39 04/03/19 09:47 Temperature Pulse Rate 67 65 66 Respiratory Rate 17 20 Blood Pressure Pulse Oximetry 97 04/03/19 10:00 04/03/19 11:50 04/03/19 12:00 Temperature 36.2 C L 36.2 C L Pulse Rate 79 67 67 Respiratory Rate 17 20 Blood Pressure 119/70 103/62 Pulse Oximetry 99 91 04/03/19 14:00 04/03/19 16:03 04/03/19 16:11 Temperature Pulse Rate 64 71 71
[2019-04-03 18:15] LABS: Glucose Point of Care 126 (65-105)
[2019-04-03 20:38] LABS: Glucose Point of Care 121 (65-105)
[2019-04-03] MEDS: QUEtiapine FUMARATE 25 MG TABLET PO (21:18)
[2019-04-03] MEDS: ATORVASTATIN 40 MG TABLET PO (21:18)
[2019-04-03] MEDS: AMIODARONE HCL 200 MG TABLET PO (21:18)
[2019-04-04] VITALS (25 sets, daily range): BP systolic 99–138; BP diastolic 40–72; PULSE 56–96; RESP 18–21; TEMP 35.9–36.8; O2SAT 88–100
[2019-04-04] MEDS: IPRATROPIUM BR 0.02% INH SOLN 0.5 MG/2.5 ML VIAL INHALATION ×4 (02:48→21:40)
[2019-04-04 04:58] LABS: Basophils Absolute Auto 0.1 K/mm3 (0.0-0.1); Basophils Percent Auto 0.8 % (0.2-1.2); Eosinophils Absolute Auto 0.3 K/mm3 (0-0.3); Eosinophils Percent Auto 2.7 % (0-4.4); Hematocrit 31.6 % (42.0-52.0); Hemoglobin 10.3 g/dL (14.0-18.0); Immature Granulocyte Absolute 0.04 K/mm3 (0.00-0.031); Immature Granulocyte Percent A 0.4 % (0-0.5); Lymphocytes Absolute Auto 1.62 K/mm3 (0.9-3.2); Lymphocytes Percent Auto 16.9 % (18.3-44.2); Mean Corpuscular HGB Conc 32.6 g/dl (32-36); Mean Corpuscular Hemoglobin 29.9 pg (26-34); Mean Corpuscular Volume 91.6 fl (80-100); Mean Platelet Volume 9.5 fl (7.4-10.4); Monocytes Absolute Auto 0.8 K/mm3 (0.1-0.6); Monocytes Percent Auto 8.7 % (2.6-8.5); Neutrophils Absolute Auto 6.7 K/mm3 (1.3-6.7); Neutrophils Percent Auto 70.5 % (45.5-73.1); Platelet Count Result 209 k/mm3 (150-375); Red Blood Count 3.45 M/mm3 (4.6-6.20); Red Cell Distribution Width 12.9 % (11.5-14.5); White Blood Count 9.6 K/mm3 (4.5-10.0)
[2019-04-04 05:17] LABS: Blood Urea Nitrogen 17 mg/dL (9-20); Carbon Dioxide 28 mmol/L (22-30); Chloride 94 mmol/L (98-107); Estimated CRCL calculation 91 ml/min; Estimated Glomerular Filt Rate > 60; Glucose 118 mg/dL (75-110); Magnesium 1.9 mg/dL (1.6-2.3); Potassium 3.8 mmol/L (3.4-5.0); Sodium 129 mmol/L (137-145)
[2019-04-04] MEDS: LEVOTHYROXINE SODIUM 37.5 MCG PO (05:52)
--- NOTE | 2019-04-04 06:26 | ECG_ITS ---
Measurements Intervals [place] Rate: 77 P: [place]: 0 QRS: 81 QRSD: 118 T: 89 QT: 444 QTc: 504 Interpretive Statements ATRIAL FIBRILLATION INCOMPLETE RIGHT BUNDLE BRANCH BLOCK LOW QRS VOLTAGE IN LIMB LEADS BORDERLINE ST-T WAVE ABNORMALITY- DIFFUSE LEADS ABNORMAL ECG Electronically Signed On 04-04-2019 8:34:56 ELECTROPHYSIOLOGY TECH by Luis M Hurd D.O.
--- NOTE | 2019-04-04 07:43 | PM.PNCARD ---
Progress Note: A&P Assessment and Plan (1) Elevated troponin: Code(s): R79.89 - Other specified abnormal findings of blood chemistry Status: Acute Assessment and Plan: Doubtful this is ACS. Troponin could be elevated based on pneumonia. Troponin had peaked and on its way down. Probably due a type II infarct related to Pneumonia and rapid atrial flutter. Echo did not show any wall motion abnormalities. On aspirin, statin. Not on beta kacey due to being on amiodarone which have controlled HR without dropping HR or BP precipitously like Diltiazem did. (2) Pneumonia: Qualifiers: Pneumonia type: due to unspecified organism Laterality: unspecified laterality Lung location: unspecified part of lung Qualified Code(s): J18.9 - Pneumonia, unspecified organism Code(s): J18.9 - Pneumonia, unspecified organism Status: Acute Assessment and Plan: On antibiotics. (3) HTN (hypertension): Qualifiers: Hypertension type: essential hypertension Qualified Code(s): I10 - Essential (primary) hypertension Code(s): I10 - Essential (primary) hypertension Status: Acute (4) CHF (congestive heart failure): Code(s): I50.9 - Heart failure, unspecified Status: Acute Assessment and Plan: He does have diastolic dysfunction and at risk for diastolic heart failure based on echo done 03/11/19. Given pneumonia and hypotension and since he does not appear to be fluid overloaded despite elevated NTproBNP, would hold off on diuresis at this time. (5) Atrial flutter: Code(s): I48.92 - Unspecified atrial flutter Status: Acute Assessment and Plan: [id number] 3 (age, CHF, h/o hypertension).On Amiodarone drip for rate control and possibly rhythm control given hypotension. Change Lovenox to Eliquis 5 mg BID and check cost for that. On Amiodarone 200 mg PO BID. Subjective Date/time seen: 04/04/19 07:43 Denies chest pain or sob. Exam Const: General: comfortable and no acute distress Neck: Neck: no JVD Carotids: no bruits Resp: Effort & Inspection: normal respiratory effort Auscultation: rhonchi, wheezes and diminished lung sounds Cardio: Rate: regular rate Rhythm: abnormal rhythm Heart sounds: no murmurs GI: Inspection: non-distended Neuro: Speech: normal speech Extrem: Right lower extremity: no edema Left lower extremity: no edema Objective Data Vital Signs Vital Signs: Vital Signs - 24 hr 04/03/19 08:00 04/03/19 09:39 04/03/19 09:47 Temperature Pulse Rate 67 65 66 Respiratory Rate 17 20 Blood Pressure Pulse Oximetry 97 04/03/19 10:00 04/03/19 11:50 04/03/19 12:00 Temperature 97.1 F L 97.2 F L Pulse Rate 79 67 67 Respiratory Rate 17 20 Blood Pressure 119/70 103/62 Pulse Oximetry 99 91 04/03/19 14:00 04/03/19 16:00 04/03/19 16:03 Temperature Pulse Rate 64 71 71 Respiratory Rate 18 20 Blood Pressure 118/64 Pulse Oximetry 96 04/03/19 16:11 04/03/19 18:00 04/03/19 19:33 Temperature 97.8 F Pulse Rate 71 76 80 Respiratory Rate 22 H 14 Blood Pressure 109/50 L Pulse Oximetry 99 04/03/19 20:00 04/03/19 20:13 04/03/19 20:16 Temperature Pulse Rate 66 68 Respiratory Rate 20 Blood Pressure Pulse Oximetry 98 04/03/19 20:21 04/03/19 21:18 04/03/19 22:00 Temperature Pulse Rate 72 106 H 73 Respiratory Rate 20 Blood Pressure Pulse Oximetry 04/04/19 00:00 04/04/19 02:00 04/04/19 02:50 Temperature 98.3 F Pulse Rate 73 77 83 Respiratory Rate 18 20 Blood Pressure 120/54 L Pulse Oximetry 99 04/04/19 03:00 04/04/19 04:00 04/04/19 06:00 Temperature 97.0 F L Pulse Rate 85 56 L 80 Respiratory Rate 20 20 Blood Pressure 106/58 L Pulse Oximetry 95 Intake/Output Intake/Output: Intake & Output 04/01/19 04/02/19 04/03/19 04/04/19 23:59 23:59 23:59 23:59 Intake Total 2100 1607 250 Output Total 200 725 300 Balance 1900 882
[2019-04-04 08:45] LABS: Glucose Point of Care 110 (65-105)
[2019-04-04] MEDS: APIXABAN 5 MG TABLET PO ×2 (08:47→20:18)
[2019-04-04] MEDS: FOLIC ACID 0.4 MG TABLET 0.8 MG PO (08:47)
[2019-04-04] MEDS: AMIODARONE HCL 200 MG TABLET PO ×2 (08:47→20:18)
[2019-04-04] MEDS: FERROUS SULFATE 324 MG TABLET PO (08:47)
[2019-04-04] MEDS: ESCITALOPRAM OXALATE 10 MG TABLET PO (08:48)
[2019-04-04] MEDS: ASPIRIN 81 MG ENTERIC TABLET PO (08:48)
[2019-04-04] MEDS: TAMSULOSIN HCL 0.4 MG CAPSULE 0.8 MG PO (08:48)
[2019-04-04] MEDS: FINASTERIDE 5 MG TABLET PO (08:48)
[2019-04-04] MEDS: PANTOPRAZOLE 40 MG TABLET PO (08:48)
--- NOTE | 2019-04-04 10:53 | PM.IMPN ---
Progress Note: A&P Assessment and Plan (1) Atrial fibrillation, new onset: Code(s): I48.91 - Unspecified atrial fibrillation Status: Acute Assessment and Plan: PO amiodarone PO apixaban (2) HCAP (healthcare-associated pneumonia): Code(s): J18.9 - Pneumonia, unspecified organism Status: Acute Assessment and Plan: continue vanc/cefepime, oxygen (3) Acute respiratory failure with hypoxia: Code(s): J96.01 - Acute respiratory failure with hypoxia Status: Acute Assessment and Plan: oxygen, steroids, bronchodilators (4) Hyponatremia: Code(s): E87.1 - Hypo-osmolality and hyponatremia Status: Acute Assessment and Plan: check FENA (5) CHF (congestive heart failure): Qualifiers: Heart failure type: diastolic Heart failure chronicity: chronic Qualified Code(s): I50.32 - Chronic diastolic (congestive) heart failure Code(s): I50.9 - Heart failure, unspecified Status: Acute Assessment and Plan: Echo in February showed normal ejection fraction with some diastolic dysfunction. Continue to monitor (6) Elevated troponin: Code(s): R79.89 - Other specified abnormal findings of blood chemistry Status: Acute Assessment and Plan: no ACS likely due to afib rvr (7) Dementia: Qualifiers: Dementia type: unspecified type Dementia behavioral disturbance: with behavioral disturbance Qualified Code(s): F03.91 - Unspecified dementia with behavioral disturbance Code(s): F03.90 - Unspecified dementia without behavioral disturbance Status: Acute Assessment and Plan: likely his baseline Subjective Date/time seen: 04/04/19 10:53 Interval history: Admitted 04/02 for pneumonia, atrial fib rvr. Feeling better. Ate a good breakfast. Constipated. Still coughing quite a bit. Still sob with exertion. Denied pain, n/v, bleeding. Review of Systems Review of Systems: All systems reviewed & are unremarkable except as noted in HPI and below Exam Narrative: Exam Narrative: HEENT: EOMI, PERRL, pharyngeal mucosa pink and intact NECK: No JVD CHEST: Coarse rhonchi and wheezes diffusely HEART: NL S1/S2, irregular, no murmur ABDOMEN: BS+, soft, nontender, no mass, no bruits EXTREMITIES: No cyanosis, edema, or clubbing NEUROLOGIC: CN intact and symmetric to inspection. MUSCULOSKELETAL: Tone and strength symmetric. PSYCH: Alert and pleasant. Oriented to person. Objective Data Vital Signs Vital Signs: Vital Signs - 24 hr 04/03/19 11:50 04/03/19 12:00 04/03/19 14:00 Temperature 97.2 F L Pulse Rate 67 67 64 Respiratory Rate 20 Blood Pressure 103/62 Pulse Oximetry 91 04/03/19 16:00 04/03/19 16:03 04/03/19 16:11 Temperature Pulse Rate 71 71 71 Respiratory Rate 18 20 22 H Blood Pressure 118/64 Pulse Oximetry 96 04/03/19 18:00 04/03/19 19:33 04/03/19 20:00 Temperature 97.8 F Pulse Rate 76 80 66 Respiratory Rate 14 Blood Pressure 109/50 L Pulse Oximetry 99 04/03/19 20:13 04/03/19 20:16 04/03/19 20:21 Temperature Pulse Rate 68 72 Respiratory Rate 20 20 Blood Pressure Pulse Oximetry 98 04/03/19 21:18 04/03/19 22:00 04/04/19 00:00 Temperature 98.3 F Pulse Rate 106 H 73 73 Respiratory Rate 18 Blood Pressure 120/54 L Pulse Oximetry 99 04/04/19 02:00 04/04/19 02:50 04/04/19 03:00 Temperature Pulse Rate 77 83 85 Respiratory Rate 20 20 Blood Pressure Pulse Oximetry 04/04/19 04:00 04/04/19 06:00 04/04/19 08:00 Temperature 97.0 F L 96.6 F L Pulse Rate 56 L 80 76 Respiratory Rate 20 20 Blood Pressure 106/58 L 123/55 L Pulse Oximetry 95 99 04/04/19 08:47 04/04/19 09:01 04/04/19 09:12 Temperature Pulse Rate 80 93 79 Respiratory Rate 20 20 Blood Pressure Pulse Oximetry 88 L Intake/Output Intake/Output: Intake & Output 04/01/19 04/02/19 04/03/19 04/04/19 23:59 23:59 23:
[2019-04-04 12:11] LABS: Glucose Point of Care 106 (65-105)
[2019-04-04] MEDS: methylPREDNISolone SOD SUCC 125 MG VIAL 60 MG IV PUSH (15:58)
[2019-04-04 16:58] LABS: Glucose Point of Care 177 (65-105)
[2019-04-04 18:28] LABS: Creatinine Urine 128.9 mg/dL
[2019-04-04 18:31] LABS: Sodium Urine Random 6 meq/L
[2019-04-04] MEDS: ATORVASTATIN 40 MG TABLET PO (20:18)
[2019-04-04] MEDS: QUEtiapine FUMARATE 25 MG TABLET PO (20:18)
[2019-04-04 20:28] LABS: Vancomycin Trough 9.3 ug/mL (10.0-20.0)
[2019-04-04 20:47] LABS: Glucose Point of Care 196 (65-105)
[2019-04-05] VITALS (21 sets, daily range): BP systolic 94–126; BP diastolic 48–74; PULSE 70–93; RESP 18–24; TEMP 36.2–36.6; O2SAT 94–99
[2019-04-05] MEDS: IPRATROPIUM BR 0.02% INH SOLN 0.5 MG/2.5 ML VIAL INHALATION ×3 (02:11→14:24)
[2019-04-05 04:53] LABS: Hematocrit 33.2 % (42.0-52.0); Hemoglobin 10.7 g/dL (14.0-18.0); Mean Corpuscular HGB Conc 32.2 g/dl (32-36); Mean Corpuscular Hemoglobin 29.9 pg (26-34); Mean Corpuscular Volume 92.7 fl (80-100); Mean Platelet Volume 9.9 fl (7.4-10.4); Platelet Count Result 222 k/mm3 (150-375); Red Blood Count 3.58 M/mm3 (4.6-6.20); Red Cell Distribution Width 12.7 % (11.5-14.5); White Blood Count 8.7 K/mm3 (4.5-10.0)
[2019-04-05 05:04] LABS: Blood Urea Nitrogen 15 mg/dL (9-20); Calcium 8.4 mg/dL (8.4-10.2); Carbon Dioxide 27 mmol/L (22-30); Chloride 96 mmol/L (98-107); Estimated CRCL calculation 90 ml/min; Estimated Glomerular Filt Rate > 60; Glucose 167 mg/dL (75-110); Potassium 4.5 mmol/L (3.4-5.0); Sodium 133 mmol/L (137-145)
[2019-04-05] MEDS: LEVOTHYROXINE SODIUM 37.5 MCG PO (05:49)
--- NOTE | 2019-04-05 07:20 | ECG_ITS ---
Measurements Intervals [place] Rate: 80 P: [place]: 0 QRS: 69 QRSD: 111 T: -60 QT: 406 QTc: 468 Interpretive Statements ATRIAL FIBRILLATION INCOMPLETE RIGHT BUNDLE BRANCH BLOCK LOW QRS VOLTAGE IN LIMB LEADS BORDERLINE ST-T WAVE ABNORMALITY- DIFFUSE LEADS BASELINE ARTIFACT- II, III, AVF ABNORMAL ECG Electronically Signed On 04-05-2019 11:40:43 [employer] ASSISTANT by Luis M Hurd D.O.
[2019-04-05 07:37] LABS: Glucose Point of Care 186 (65-105)
--- NOTE | 2019-04-05 07:52 | PM.PNCARD ---
Progress Note: A&P Assessment and Plan (1) Elevated troponin: Code(s): R79.89 - Other specified abnormal findings of blood chemistry Status: Acute Assessment and Plan: Doubtful this is ACS. Troponin could be elevated based on pneumonia. Troponin had peaked and on its way down. Probably due a type II infarct related to Pneumonia and rapid atrial flutter. Echo did not show any wall motion abnormalities. On aspirin, statin. Not on beta kacey due to being on amiodarone which have controlled HR without dropping HR or BP precipitously like Diltiazem did. (2) Pneumonia: Qualifiers: Pneumonia type: due to unspecified organism Laterality: unspecified laterality Lung location: unspecified part of lung Qualified Code(s): J18.9 - Pneumonia, unspecified organism Code(s): J18.9 - Pneumonia, unspecified organism Status: Acute Assessment and Plan: On antibiotics. (3) HTN (hypertension): Qualifiers: Hypertension type: essential hypertension Qualified Code(s): I10 - Essential (primary) hypertension Code(s): I10 - Essential (primary) hypertension Status: Acute (4) CHF (congestive heart failure): Qualifiers: Heart failure type: diastolic Heart failure chronicity: chronic Qualified Code(s): I50.32 - Chronic diastolic (congestive) heart failure Code(s): I50.9 - Heart failure, unspecified Status: Acute Assessment and Plan: He does have diastolic dysfunction and at risk for diastolic heart failure based on echo done 03/11/19. Given pneumonia and hypotension and since he does not appear to be fluid overloaded despite elevated NTproBNP, would hold off on diuresis at this time. (5) Atrial flutter: Code(s): I48.92 - Unspecified atrial flutter Status: Acute Assessment and Plan: [id number] 3 (age, CHF, h/o hypertension). On Eliquis 5 mg BID and on Amiodarone 200 mg PO BID. Subjective Date/time seen: 04/05/19 07:52 Denies chest pain or sob. Exam Const: General: comfortable and no acute distress Neck: Neck: no JVD Resp: Effort & Inspection: normal respiratory effort Auscultation: rhonchi and wheezes Cardio: Rate: regular rate Rhythm: abnormal rhythm Heart sounds: no murmurs GI: Inspection: non-distended Neuro: Speech: normal speech Extrem: Right lower extremity: no edema Left lower extremity: no edema Objective Data Vital Signs Vital Signs: Vital Signs - 24 hr 04/04/19 08:00 04/04/19 08:47 04/04/19 09:01 Temperature 96.6 F L Pulse Rate 76 80 93 Respiratory Rate 20 20 Blood Pressure 123/55 L Pulse Oximetry 99 88 L 04/04/19 09:12 04/04/19 10:00 04/04/19 12:00 Temperature 97.6 F Pulse Rate 79 89 76 Respiratory Rate 20 20 Blood Pressure 116/58 L Pulse Oximetry 100 04/04/19 14:00 04/04/19 14:43 04/04/19 14:59 Temperature Pulse Rate 79 71 70 Respiratory Rate 20 20 Blood Pressure Pulse Oximetry 04/04/19 16:00 04/04/19 18:00 04/04/19 19:42 Temperature 97 F L 97.4 F L Pulse Rate 82 84 78 Respiratory Rate 21 H 20 Blood Pressure 107/63 99/40 L Pulse Oximetry 100 99 04/04/19 20:00 04/04/19 20:18 04/04/19 21:41 Temperature Pulse Rate 86 88 88 Respiratory Rate 20 Blood Pressure Pulse Oximetry 04/04/19 21:43 04/04/19 21:47 04/04/19 22:00 Temperature Pulse Rate 78 85 Respiratory Rate 20 Blood Pressure Pulse Oximetry 95 04/04/19 23:55 04/05/19 00:00 04/05/19 02:00 Temperature 97.7 F Pulse Rate 96 78 82 Respiratory Rate 20 Blood Pressure 138/72 Pulse Oximetry 95 04/05/19 02:12 04/05/19 02:18 04/05/19 04:00 Temperature 97.9 F Pulse Rate 80 82 71 Respiratory Rate 18 18 18 Blood Pressure 94/48 L Pulse Oximetry 97 04/05/19 06:00 Temperature Pulse Rate 85 Respiratory Rate Blood Pressure Pulse Oximetry Intake/Output Intake/Output: Intake & Output 04/02/19 04/03/19 04/04/19 0
--- NOTE | 2019-04-05 09:04 | PM.IMPN ---
Progress Note: A&P Assessment and Plan (1) Atrial fibrillation, new onset: Code(s): I48.91 - Unspecified atrial fibrillation Status: Acute Assessment and Plan: PO amiodarone PO apixaban (2) HCAP (healthcare-associated pneumonia): Code(s): J18.9 - Pneumonia, unspecified organism Status: Acute Assessment and Plan: continue vanc/doxy/cefepime day 4 of at least 5 IV prednisone 40mg oxygen eval in AM of 04/05 (3) Acute respiratory failure with hypoxia: Code(s): J96.01 - Acute respiratory failure with hypoxia Status: Acute Assessment and Plan: oxygen, steroids, bronchodilators (4) Hyponatremia: Code(s): E87.1 - Hypo-osmolality and hyponatremia Status: Acute Assessment and Plan: FENA 04/04 prerenal (5) CHF (congestive heart failure): Qualifiers: Heart failure type: diastolic Heart failure chronicity: chronic Qualified Code(s): I50.32 - Chronic diastolic (congestive) heart failure Code(s): I50.9 - Heart failure, unspecified Status: Acute Assessment and Plan: Echo in February showed normal ejection fraction with some diastolic dysfunction. Continue to monitor (6) Elevated troponin: Code(s): R79.89 - Other specified abnormal findings of blood chemistry Status: Acute Assessment and Plan: no ACS likely due to afib rvr (7) Dementia: Qualifiers: Dementia type: unspecified type Dementia behavioral disturbance: with behavioral disturbance Qualified Code(s): F03.91 - Unspecified dementia with behavioral disturbance Code(s): F03.90 - Unspecified dementia without behavioral disturbance Status: Acute Assessment and Plan: likely his baseline 04/05 remove toney catheter Subjective Date/time seen: 04/05/19 09:04 Interval history: Admitted 04/02 for pneumonia, atrial fib rvr. Feeling better. Ate a good breakfast. Constipated. Still coughing quite a bit. Still sob with exertion. Denied pain, n/v, bleeding. Review of Systems Review of Systems: All systems reviewed & are unremarkable except as noted in HPI and below Exam Narrative: Exam Narrative: HEENT: EOMI, PERRL, pharyngeal mucosa pink and intact NECK: No JVD CHEST: Coarse rhonchi scattered HEART: NL S1/S2, regular, no murmur ABDOMEN: BS+, soft, nontender, no mass, no bruits EXTREMITIES: No cyanosis, edema, or clubbing NEUROLOGIC: CN intact and symmetric to inspection. MUSCULOSKELETAL: Tone and strength symmetric. PSYCH: Alert and pleasant. Oriented to person. Objective Data Vital Signs Vital Signs: Vital Signs - 24 hr 04/04/19 09:12 04/04/19 10:00 04/04/19 12:00 Temperature 97.6 F Pulse Rate 79 89 76 Respiratory Rate 20 20 Blood Pressure 116/58 L Pulse Oximetry 100 04/04/19 14:00 04/04/19 14:43 04/04/19 14:59 Temperature Pulse Rate 79 71 70 Respiratory Rate 20 20 Blood Pressure Pulse Oximetry 04/04/19 16:00 04/04/19 18:00 04/04/19 19:42 Temperature 97 F L 97.4 F L Pulse Rate 82 84 78 Respiratory Rate 21 H 20 Blood Pressure 107/63 99/40 L Pulse Oximetry 100 99 04/04/19 20:00 04/04/19 20:18 04/04/19 21:41 Temperature Pulse Rate 86 88 88 Respiratory Rate 20 Blood Pressure Pulse Oximetry 04/04/19 21:43 04/04/19 21:47 04/04/19 22:00 Temperature Pulse Rate 78 85 Respiratory Rate 20 Blood Pressure Pulse Oximetry 95 04/04/19 23:55 04/05/19 00:00 04/05/19 02:00 Temperature 97.7 F Pulse Rate 96 78 82 Respiratory Rate 20 Blood Pressure 138/72 Pulse Oximetry 95 04/05/19 02:12 04/05/19 02:18 04/05/19 04:00 Temperature 97.9 F Pulse Rate 80 82 71 Respiratory Rate 18 18 18 Blood Pressure 94/48 L Pulse Oximetry 97 04/05/19 06:00 04/05/19 08:00 Temperature 97.2 F L Pulse Rate 85 79 Respiratory Rate 18 Blood Pressure 120/50 L Pulse Oximetry 99 Intake/Output Intake/Output: Intake & Outpu
[2019-04-05] MEDS: FOLIC ACID 0.4 MG TABLET 0.8 MG PO (09:40)
[2019-04-05] MEDS: APIXABAN 5 MG TABLET PO ×2 (09:41→20:17)
[2019-04-05] MEDS: ASPIRIN 81 MG ENTERIC TABLET PO (09:41)
[2019-04-05] MEDS: ESCITALOPRAM OXALATE 10 MG TABLET PO (09:41)
[2019-04-05] MEDS: TAMSULOSIN HCL 0.4 MG CAPSULE 0.8 MG PO (09:41)
[2019-04-05] MEDS: FINASTERIDE 5 MG TABLET PO (09:41)
[2019-04-05] MEDS: FERROUS SULFATE 324 MG TABLET PO (09:41)
[2019-04-05] MEDS: PANTOPRAZOLE 40 MG TABLET PO (09:41)
[2019-04-05] MEDS: predniSONE 20 MG TABLET 40 MG PO (09:41)
[2019-04-05] MEDS: AMIODARONE HCL 200 MG TABLET PO ×2 (09:42→20:17)
[2019-04-05] MEDS: DOXYCYCLINE HYCLATE 100 MG TABLET PO ×2 (09:44→20:17)
[2019-04-05 17:32] LABS: Glucose Point of Care 141 (65-105)
[2019-04-05 17:32] LABS: Glucose Point of Care 178 (65-105)
[2019-04-05] MEDS: QUEtiapine FUMARATE 25 MG TABLET PO (20:17)
[2019-04-05] MEDS: ATORVASTATIN 40 MG TABLET PO (20:17)
[2019-04-05 21:04] LABS: Glucose Point of Care 185 (65-105)
--- NOTE | 2019-04-05 23:13 | PC.NURSE ---
This patient, Joe Vigil, was received from IMU on 04/05/19 at 2030. Personal belongings list checked and signed. Patient/family oriented to unit policies and routines
[2019-04-05 23:23] LABS: Glucose Point of Care 151 (65-105)
--- NOTE | 2019-04-05 23:25 | PCRCNOTE ---
Window of time for administration has passed. See next scheduled administration.
[2019-04-06] VITALS (11 sets, daily range): BP systolic 123; BP diastolic 70; PULSE 74–84; RESP 18–20; TEMP 37; O2SAT 87–94
[2019-04-06] MEDS: IPRATROPIUM BR 0.02% INH SOLN 0.5 MG/2.5 ML VIAL INHALATION ×3 (02:00→13:16)
[2019-04-06] MEDS: LEVOTHYROXINE SODIUM 37.5 MCG PO (05:41)
[2019-04-06 06:33] LABS: Hematocrit 33.7 % (42.0-52.0); Hemoglobin 10.9 g/dL (14.0-18.0); Mean Corpuscular HGB Conc 32.3 g/dl (32-36); Mean Corpuscular Hemoglobin 29.9 pg (26-34); Mean Corpuscular Volume 92.3 fl (80-100); Mean Platelet Volume 9.6 fl (7.4-10.4); Platelet Count Result 255 k/mm3 (150-375); Red Blood Count 3.65 M/mm3 (4.6-6.20); Red Cell Distribution Width 12.8 % (11.5-14.5); White Blood Count 13.8 K/mm3 (4.5-10.0)
[2019-04-06 06:44] LABS: Blood Urea Nitrogen 21 mg/dL (9-20); Calcium 8.8 mg/dL (8.4-10.2); Carbon Dioxide 28 mmol/L (22-30); Chloride 95 mmol/L (98-107); Estimated CRCL calculation 90 ml/min; Estimated Glomerular Filt Rate > 60; Glucose 133 mg/dL (75-110); Potassium 4.5 mmol/L (3.4-5.0); Sodium 134 mmol/L (137-145)
[2019-04-06] MEDS: ASPIRIN 81 MG ENTERIC TABLET PO (07:48)
[2019-04-06] MEDS: FINASTERIDE 5 MG TABLET PO (07:48)
[2019-04-06] MEDS: APIXABAN 5 MG TABLET PO (07:49)
[2019-04-06] MEDS: predniSONE 20 MG TABLET 40 MG PO (07:49)
[2019-04-06] MEDS: TAMSULOSIN HCL 0.4 MG CAPSULE 0.8 MG PO (07:49)
[2019-04-06] MEDS: ESCITALOPRAM OXALATE 10 MG TABLET PO (07:49)
[2019-04-06] MEDS: FERROUS SULFATE 324 MG TABLET PO (07:50)
[2019-04-06] MEDS: PANTOPRAZOLE 40 MG TABLET PO (07:50)
[2019-04-06] MEDS: AMIODARONE HCL 200 MG TABLET PO (07:50)
[2019-04-06] MEDS: DOXYCYCLINE HYCLATE 100 MG TABLET PO (07:51)
[2019-04-06] MEDS: FOLIC ACID 0.4 MG TABLET 0.8 MG PO (07:51)
[2019-04-06 07:58] LABS: Glucose Point of Care 116 (65-105)
--- NOTE | 2019-04-06 08:18 | PM.PNCARD ---
Progress Note: A&P Assessment and Plan (1) Elevated troponin: Code(s): R79.89 - Other specified abnormal findings of blood chemistry Status: Acute Assessment and Plan: Doubtful this is ACS. Troponin could be elevated based on pneumonia. Troponin had peaked and on its way down. Probably due a type II infarct related to Pneumonia and rapid atrial flutter. Echo did not show any wall motion abnormalities. On aspirin, statin. Not on beta kacey due to being on amiodarone which have controlled HR without dropping HR or BP precipitously like Diltiazem did. (2) Pneumonia: Qualifiers: Pneumonia type: due to unspecified organism Laterality: unspecified laterality Lung location: unspecified part of lung Qualified Code(s): J18.9 - Pneumonia, unspecified organism Code(s): J18.9 - Pneumonia, unspecified organism Status: Acute Assessment and Plan: On antibiotics. (3) HTN (hypertension): Qualifiers: Hypertension type: essential hypertension Qualified Code(s): I10 - Essential (primary) hypertension Code(s): I10 - Essential (primary) hypertension Status: Acute (4) CHF (congestive heart failure): Qualifiers: Heart failure type: diastolic Heart failure chronicity: chronic Qualified Code(s): I50.32 - Chronic diastolic (congestive) heart failure Code(s): I50.9 - Heart failure, unspecified Status: Acute Assessment and Plan: He does have diastolic dysfunction and at risk for diastolic heart failure based on echo done 03/11/19. Given pneumonia and hypotension and since he does not appear to be fluid overloaded despite elevated NTproBNP, would hold off on diuresis at this time. (5) Atrial flutter: Code(s): I48.92 - Unspecified atrial flutter Status: Acute Assessment and Plan: [id number] (age, CHF, h/o hypertension). On Eliquis 5 mg BID and on Amiodarone 200 mg PO BID and continue for total 2 weeks then decrease 200 mg daily. Subjective Date/time seen: 04/06/19 08:18 Denies chest pain or sob. He reports chronic knee and lower back pain. Exam Const: General: comfortable and no acute distress Neck: Neck: no JVD Carotids: no bruits Resp: Auscultation: no crackles, no rales and wheezes Cardio: Rate: regular rate Rhythm: abnormal rhythm Heart sounds: no murmurs GI: Inspection: non-distended Neuro: Speech: normal speech Extrem: Right lower extremity: no edema Left lower extremity: no edema Objective Data Vital Signs Vital Signs: Vital Signs - 24 hr 04/05/19 09:42 04/05/19 09:51 04/05/19 09:53 Temperature Pulse Rate 78 75 Respiratory Rate 20 Blood Pressure Pulse Oximetry 94 04/05/19 09:59 04/05/19 10:00 04/05/19 12:00 Temperature 97.5 F L Pulse Rate 70 74 85 Respiratory Rate 20 24 H Blood Pressure 119/60 Pulse Oximetry 99 04/05/19 14:00 04/05/19 14:24 04/05/19 14:33 Temperature Pulse Rate 93 72 82 Respiratory Rate 20 20 Blood Pressure Pulse Oximetry 04/05/19 16:00 04/05/19 18:00 04/05/19 20:00 Temperature 97.3 F L Pulse Rate 78 79 71 Respiratory Rate 24 H Blood Pressure 125/62 Pulse Oximetry 98 04/05/19 20:17 04/05/19 21:52 04/06/19 00:00 Temperature 97.9 F Pulse Rate 70 90 77 Respiratory Rate 18 Blood Pressure 126/74 Pulse Oximetry 96 04/06/19 02:00 04/06/19 02:10 04/06/19 06:00 Temperature 98.6 F Pulse Rate 74 75 76 Respiratory Rate 20 20 18 Blood Pressure 123/70 Pulse Oximetry 94 04/06/19 07:50 Temperature Pulse Rate 78 Respiratory Rate Blood Pressure Pulse Oximetry Intake/Output Intake/Output: Intake & Output 04/03/19 04/04/19 04/05/19 04/06/19 23:59 23:59 23:59 23:59 Intake Total 1607 1680 1790 300 Output Total 492 259 5344 500 Balance 883 675 -515 -560 Meds/Results Medications: Active Medications Generic Name Dose Route Start Last Admin Trade Name Freq PRN Reason S
--- NOTE | 2019-04-06 12:43 | PM.DS ---
DS: Diagnosis Admitting Diagnosis Admitting Diagnosis: Atrial fibrillation with rapid ventricular rate, healthcare acquired pneumonia Discharge Diagnosis (1) Atrial fibrillation, new onset: Code(s): I48.91 - Unspecified atrial fibrillation Status: Acute Assessment and Plan: PO amiodarone PO apixaban (2) HCAP (healthcare-associated pneumonia): Code(s): J18.9 - Pneumonia, unspecified organism Status: Acute Assessment and Plan: continue vanc/doxy/cefepime day 4 of at least 5 IV prednisone 40mg oxygen eval in AM of 04/05, 2 LPM (3) Acute respiratory failure with hypoxia: Code(s): J96.01 - Acute respiratory failure with hypoxia Status: Acute Assessment and Plan: oxygen, steroids, bronchodilators (4) Hyponatremia: Code(s): E87.1 - Hypo-osmolality and hyponatremia Status: Acute Assessment and Plan: FENA 04/04 prerenal (5) CHF (congestive heart failure): Qualifiers: Heart failure chronicity: chronic Heart failure type: diastolic Qualified Code(s): I50.32 - Chronic diastolic (congestive) heart failure Code(s): I50.9 - Heart failure, unspecified Status: Acute Assessment and Plan: Echo in February showed normal ejection fraction with some diastolic dysfunction. Continue to monitor (6) Elevated troponin: Code(s): R79.89 - Other specified abnormal findings of blood chemistry Status: Acute Assessment and Plan: no ACS likely due to afib rvr (7) Dementia: Qualifiers: Dementia behavioral disturbance: with behavioral disturbance Dementia type: unspecified type Qualified Code(s): F03.91 - Unspecified dementia with behavioral disturbance Code(s): F03.90 - Unspecified dementia without behavioral disturbance Status: Acute Assessment and Plan: likely his baseline 04/05 removed toney catheter DS: Summary Hospital Course Reason for hospitalization: Dyspnea Hospital Course: Admitted with dyspnea. Found to have pulmonary infiltrates and atrial fibrillation with rapid ventricular rate. Had been in rehab at [facility]. Treated with vancomycin doxycycline and cefepime. Given IV amiodarone for atrial fibrillation. Rate was controlled. Intermittently in sinus rhythm. Tolerated anticoagulation with apixaban. By day of discharge she was tolerating PT and OT. Eating well. Status at Discharge Functional status at discharge: uses cane/walker Overall status at discharge: patient is progressing back to baseline Time Spent with Patient Time attestation: Total time spent providing and/or coordinating discharge services: Exam Narrative: Exam Narrative: HEENT: EOMI, PERRL, pharyngeal mucosa pink and intact NECK: No JVD CHEST: Coarse rhonchi scattered HEART: NL S1/S2, regular, no murmur ABDOMEN: BS+, soft, nontender, no mass, no bruits EXTREMITIES: No cyanosis, edema, or clubbing NEUROLOGIC: CN intact and symmetric to inspection. MUSCULOSKELETAL: Tone and strength symmetric. PSYCH: Alert and pleasant. Oriented to person. DS: Data Data Completed and Pending Labs on day of discharge: Labs from last 24 hours 04/06/19 04/06/19 04/06/19 07:55 06:27 06:27 WBC 13.8 H RBC 3.65 L Hgb 10.9 L Hct 33.7 L MCV 92.3 MCH 29.9 MCHC 32.3 RDW 12.8 Plt Count 255 MPV 9.6 Sodium 134 L Potassium 4.5 Chloride 95 L Carbon Dioxide 28 BUN 21 H Creatinine 0.80 Estim Creat Clear Calc 90 Estimated GFR > 60 Glucose 133 H POC Capillary Glucose 116 H Calcium 8.8 04/05/19 04/05/19 04/05/19 23:22 19:58 16:54 WBC RBC Hgb Hct MCV MCH MCHC RDW Plt Count MPV Sodium Potassium Chloride Carbon Dioxide BUN Creatinine Estim Creat Clear Calc Estimated GFR Glucose POC Capillary Glucose 151 H 185 H 178 H Calcium 04/05/19 12:39 WBC RBC Hgb
[2019-04-06 14:07] LABS: Glucose Point of Care 162 (65-105)
== END 2019-04-06 15:30 | DRG 280 ==
LOC: ANHED 12:46 → ANHICU 18:24 → ANHIMU 04-05 11:48 → ANH3MEDSUR 04-06 12:46 → ANHICU 04-10 12:41 → ANHIMU 04-10 12:41
PROVIDERS: Internal Medicine; Internal Medicine Cardiovascular Disease; Admitting Provider Hospitalist; Emergency Provider Emergency Medicine; Visit Provider Internal Medicine
DX: I48.91 Unspecified atrial fibrillation (principal); J18.9 Pneumonia, unspecified organism; I21.A1 Myocardial infarction type 2; J96.01 Acute respiratory failure with hypoxia; E87.1 Hypo-osmolality and hyponatremia; I50.32 Chronic diastolic (congestive) heart failure; I48.92 Unspecified atrial flutter; I11.0 Hypertensive heart disease with heart failure; F03.90 Unspecified dementia, unspecified severity, without behavioral disturbance, psychotic disturbance, mood disturbance, and anxiety; M19.90 Unspecified osteoarthritis, unspecified site; N40.0 Benign prostatic hyperplasia without lower urinary tract symptoms; K74.60 Unspecified cirrhosis of liver; E78.5 Hyperlipidemia, unspecified; E03.9 Hypothyroidism, unspecified; J30.1 Allergic rhinitis due to pollen; E11.9 Type 2 diabetes mellitus without complications; I71.4 Abdominal aortic aneurysm, without rupture; Z90.49 Acquired absence of other specified parts of digestive tract; Z87.891 Personal history of nicotine dependence
CPT/HCPCS: 36415; 36600; 70450; 71045; 80048; 80053; 80202; 82570; 82805; 83605; 83735; 83880; 84100; 84300; 84443; 84484; 85025; 85027; 85610; 85730; 86140; 87040; 87081; 87804; 93005; 93308; 94640; 96372; 96374; 99291; A9270; C8924; J0282; J0456; J0692; J1160; J1650; J2930; J3370; J3475; J7030; J7040; J7512; Q9957

== ENCOUNTER 2019-04-22 21:35 | Inpatient (IN) | payer MEDICARE, SELFPAY ==
--- NOTE | ~2019-04-22 | XR_ITS ---
XR chest 2V 04/22/2019 22:02 Indication: Shortness of breath with weakness Procedure: AP and lateral views of the chest Comparison: Comparison to multiple prior studies sequentially, with oldest reviewed study dated 05/07. Findings: There is a large oval shaped right upper lobe mass measuring 14.6 x 9 cm on lateral view. T his may represent fluid in the major fissure, pseudotumor, given the acute change in appearance. Ther e is edema with bilateral pleural effusions. Biapical pleural thickening/scarring. Impression: 1: Cardiomegaly with pulmonary edema and bilateral pleural effusions. 2: New large mass overlying the right upper thorax which may represent pseudotumor secondary to effus ion in the fissure. Consider correlation with CT. Reviewed, dictated and finalized at location A. Impression: 1: Cardiomegaly with pulmonary edema and bilateral pleural effusions. 2: New large mass overlying the right upper thorax which may represent pseudotu mor secondary to effusion in the fissure. Consider correlation with CT.
--- NOTE | ~2019-04-22 | XR_ITS ---
MODIFIED ESOPHAGRAM HISTORY: Dysphagia. TECHNIQUE: Modified barium esophagram was performed by speech pathologist under radiologist fluorosco pic guidance. This was recorded on tape. The exam was reviewed on 04/25/2019 14:36 CDT. The DAP for this procedure was 2.6 Gycm2. Fluoroscopy time is 2.2 minutes. FINDINGS: Lateral projection of the cervical spine demonstrates normal alignment.. Oral stages with in normal limits. During pharyngeal stage there is consistent with mild laryngeal penetration without definite aspiration. There is vallecular residue.. Cervical/esophageal stages within normal limits. IMPRESSION: 1: Mild consistent laryngeal penetration without aspiration. 2: Please refer to speech pathologist report for additional detail. Reviewed, dictated and finalized at location A.
--- NOTE | ~2019-04-22 | CT_ITS ---
EXAMINATION: CT chest w con DATE: 04/22/2019 22:52 INDICATION: Abnormal masses seen on chest x-ray TECHNIQUE: Computed tomography (CT) of the chest was performed with 75 cc Omnipaque 350 intravenous c ontrast. The dose-length product was 605.14 mGy-cm. Automated exposure control and iterative reconstr uction technique were employed. COMPARISON: CT dated 05/11/2018 and chest dated 04/22/2019 FINDINGS: No definite large central pulmonary embolism. Enlarged pulmonary arteries, consistent with pulmonary arterial hypertension. Small pleural effusions with underlying compressive atelectasis. Lar ge amount of fluid in the right major fissure giving appearance of pseudotumor seen on chest x-ray. T here is atherosclerosis of the aorta. Small pericardial effusion. There is patchy airspace consolidat ion superimposed on emphysema. There is chronic upper lobe scarring. IMPRESSION: 1. Bilateral pleural effusions with large amount of loculated fluid in the right major fissure creati ng an appearance of pseudotumor. 2: Patchy bilateral airspace consolidation which may represent a combination of atelectasis, pneumoni a and/scarring. 3: Enlarged pulmonary arteries consistent with pulmonary arterial hypertension. Reviewed, dictated and finalized at location A. IMPRESSION: 1. Bilateral pleural effusions with large amount of loculated fluid in the righ t major fissure creating an appearance of pseudotumor. 2: Patchy bilateral airspace consolidation which may represent a combination of atelectasis, pneumonia and/scarring. 3: Enlarged pulmonary arteries consistent with pulmonary arterial hypertension.
--- NOTE | ~2019-04-22 | XR_ITS ---
EXAMINATION: XR chest 1V portable DATE: 04/28/2019 08:31 INDICATION: Hypoxia. TECHNIQUE: A single frontal view of the chest was obtained. COMPARISON: Chest 2 views 04/22/2019, chest CT 04/22/2019 FINDINGS: There are small bilateral loculated pleural effusions with prominent loculated fluid in rig ht major fissure. Again seen are airspace opacities in all lung zones bilaterally. No pneumothorax. C ardiomegaly is noted. IMPRESSION: 1. Stable small bilateral loculated pleural effusions. 2. Stable diffuse lung disease, likely predominantly atelectasis. Pneumonia or pulmonary edema cannot be excluded. 3. Cardiomegaly. Reviewed, dictated and finalized at location A.
[2019-04-22 21:28] VITALS: BP 104/63; PULSE 66; RESP 16; TEMP 37.1; O2SAT 67
[2019-04-22 21:39] VITALS: O2SAT 84
[2019-04-22 21:40] VITALS: O2SAT 93
[2019-04-22 21:51] VITALS: O2SAT 94
--- NOTE | 2019-04-22 21:51 | ECG_ITS ---
Measurements Intervals [place] Rate: 60 P: 112 OR: 187 QRS: 86 QRSD: 129 T: 0 QT: 255 QTc: 257 Interpretive Statements ATRIAL FLUTTER/TACHYCARDIA RIGHT BUNDLE BRANCH BLOCK LOW VOLTAGE- LIMB LEADS BASELINE ARTIFACT- I, II, III, AVL, AVF, ABNORMAL ECG Electronically Signed On 04-23-2019 8:26:09 CDT by Luis M Hurd D.O.
[2019-04-22 22:07] LABS: Basophils Absolute Auto 0.1 K/mm3 (0.0-0.1); Eosinophils Absolute Auto 0.2 K/mm3 (0-0.3); Eosinophils Percent Auto 4.7 % (0-4.4); Hematocrit 32.4 % (42.0-52.0); Hemoglobin 9.9 g/dL (14.0-18.0); Immature Granulocyte Absolute 0.01 K/mm3 (0.00-0.031); Immature Granulocyte Percent A 0.2 % (0-0.5); Lymphocytes Absolute Auto 1.38 K/mm3 (0.9-3.2); Lymphocytes Percent Auto 27.3 % (18.3-44.2); Mean Corpuscular HGB Conc 30.6 g/dl (32-36); Mean Corpuscular Volume 98.2 fl (80-100); Mean Platelet Volume 10.6 fl (7.4-10.4); Monocytes Absolute Auto 0.6 K/mm3 (0.1-0.6); Monocytes Percent Auto 11.5 % (2.6-8.5); Neutrophils Absolute Auto 2.8 K/mm3 (1.3-6.7); Neutrophils Percent Auto 54.3 % (45.5-73.1); Platelet Count Result 198 k/mm3 (150-375); Red Cell Distribution Width 13.9 % (11.5-14.5); White Blood Count 5.1 K/mm3 (4.5-10.0)
[2019-04-22 22:15] LABS: Blood Urea Nitrogen 19 mg/dL (9-20); Calcium 7.8 mg/dL (8.4-10.2); Carbon Dioxide 37 mmol/L (22-30); Chloride 96 mmol/L (98-107); Estimated CRCL calculation 78 ml/min; Estimated Glomerular Filt Rate > 60; Glucose 101 mg/dL (75-110); INR 1.5; Prothrombin Time 17.8 Seconds (11.1-14.7); Sodium 138 mmol/L (137-145)
[2019-04-22 22:16] LABS: Partial Thromboplastin Time 51.7 SECONDS (22.3-36.8)
--- NOTE | 2019-04-22 22:26 | ED.AMS ---
HPI - Altered Mental Status General Chief Complaint: Altered Mental Status Stated Complaint: AMS/ weakness Time Seen by Provider: 04/22/19 22:12 Source: patient, family (Son at bedside) and RN notes reviewed Mode of arrival: EMS Limitations: no limitations History of Present Illness HPI narrative: Pt is a 73 y/o male presenting to the ED c/o confusion. Pt's son at bedside reports the pt is currently receiving rehabilitation services from [facility] after being discharged from this facility with Viral Pneumonia and CHF exacerbation a few weeks ago. Per son, the pt was admitted to the ICU and notes his PNA has never fully resolved. Pt's son states intermediate staff noted the pt was experiencing worsening BLE swelling along with acute confusion, so they prescribed 80 mg of Lasix. Per son, the pt's confusion alleviated after the administration of Lasix but has not resolved, and notes they administered another dose of Lasix this morning. Pt's son states the intermediate also placed the pt on home oxygen continuously, noting he drops his Sats to the 80's when he's on RA. Per son, the pt does not regularly takes Lasix. Pt reports urinary frequency, SOB, cough when eating, and 1 episode of vomiting while drinking coffee this morning. Pt's son states the pt has had a few episodes of vomiting after eating or drinking throughout this past week. Pt denies CP, dysuria, or fever. Onset (ago): unknown Associated symptoms: cough (When eating), nausea/vomiting (Vomiting when drinking), shortness of breath and other (BLE swelling (per son)) Treatments prior to arrival: other (Lasix) Related Data Home Medications Medication Instructions Recorded Confirmed aspirin [Adult Low Dose Aspirin] 81 mg PO DAILY 03/11/19 04/23/19 atorvastatin 40 mg PO HS 03/11/19 04/23/19 finasteride 5 mg PO DAILY 03/11/19 04/23/19 folic acid 0.8 mg PO DAILY 03/11/19 04/23/19 multivitamin with minerals [Daily 1 tablet PO DAILY 03/11/19 04/23/19 Multivitamin-Minerals] pantoprazole 40 mg PO BID 03/11/19 04/23/19 tamsulosin 0.8 mg PO DAILY 03/11/19 04/23/19 ferrous sulfate 325 mg PO DAILY 02/16/20 03/08/20 doxycycline hyclate 100 mg PO BID 04/23/19 04/23/19 furosemide [Lasix] 40 mg PO BID 04/23/19 04/23/19 Allergies Allergy/AdvReac Type Severity Reaction Status Date / Time Penicillins Allergy Unknown Unknown Verified 04/02/19 10:49 Review of Systems Review of Systems: All systems reviewed & are unremarkable except as noted in HPI and below Constitutional: Constitutional: Denies fever(s) Cardiovascular: Cardiovascular: Denies chest pain Respiratory: Respiratory: Reports cough (When eating) and Reports dyspnea Gastrointestinal: Gastrointestinal: Reports vomiting (When drinking) Genitourinary: Genitourinary: Denies dysuria and Reports urinary frequency [facility] Past Medical History Medical History Abdominal aortic aneurysm Arthritis BPH (benign prostatic hyperplasia) Cataract CHF (congestive heart failure) Echo 04/2018 showed normal EF 60%, severe enlargement of right ventrile and severe ventricular hypokinesis. Cirrhosis Cyst Removed Depression Diabetes mellitus Foot fracture, right Gallbladder disease HLD (hyperlipidemia) HTN (hypertension) Hypothyroid Pneumonia Seasonal allergies Severe pulmonary arterial systolic hypertension Surgical History Surgical History H/O left knee surgery History of cholecystectomy History of esophagogastroduodenoscopy (EGD) 04/2018 showing gastritis Family History Family History Sibling Colon cancer Mother Congestive heart failure Father Acute myocardial infarction Social History Social History Social History: He has 1 son Russel who is his power assistant district attorney. The patient is a DNI. His May of 2017. He used to live home alone with h
[2019-04-22 22:27] LABS: NT Pro B Type Natriuretic Pept 7410 PG/ML (5-100); Troponin I < 0.012 ng/mL (0.000-0.034)
[2019-04-22] MEDS: FUROSEMIDE INJ 40 MG/4 ML VIAL IV PUSH (23:21)
[2019-04-22 23:30] VITALS: BP 116/60; PULSE 62; RESP 18; O2SAT 99
[2019-04-23] VITALS (25 sets, daily range): BP systolic 95–146; BP diastolic 43–84; PULSE 60–105; RESP 13–25; TEMP 36.1–37.4; O2SAT 84–100; BMI 34.9; BMI 35.0
--- NOTE | 2019-04-23 01:00 | PC.NURSE ---
Patient noted to desat to approx 84-88% with any activity such as laying down for linen change, swallowing pills, lifting hips. Patient recovers well withing minute to the 90's.
[2019-04-23] MEDS: POTASSIUM CHLORIDE 20 MEQ TABLET 80 MEQ PO (01:04)
--- NOTE | 2019-04-23 03:40 | ADMGEN ---
This patient, Joe Vigil, was admitted to IMU Room 205-02 at 0140. Patient/family oriented to hospital policies and general routines including ID bracelet, bed and alarms, visiting hours, pain management, procedures, bathroom and other care routines, personal items, smoking policy, room service/diet, and visiting hours. Valuables list has been completed. Information on how to activate the Rapid Response Team has been discussed. Patient/Family are encouraged to report perceived risks to care and to ask questions if they do not understand what they are told or what they should do.
--- NOTE | 2019-04-23 03:43 | PC.NURSE ---
Daylight Savings Time For Daylight Savings Time Ending in the Fall - Clocks are moved back. For Daylight Savings Time Beginning in the Spring - Clocks are moved ahead. For [facility], the time of change occurs at 0200 hrs. Time is taken from the gravity prospecting observer helper. This entry on the patient's chart recognizes the change in time reflected during documentation. Example: 2 entries for vital signs may be charted for 0200 hrs.
[2019-04-23] MEDS: FUROSEMIDE INJ 40 MG/4 ML VIAL IV PUSH (09:09)
[2019-04-23 09:17] LABS: Alveolar/Arterial O2 Gradient 178.1 mmHg; Base Excess ABG 9.1 mEq/l (+/-2.0); Carboxyhemoglobin 0.1 % THb (0-2.0); Fractional Inspired Oxygen 44 %; HCO3 ABG 37.3 mEq/l (22.0-26.0); Methemoglobin ABG 0.4 %THb (0-1.5); Oxygen Content ABG 13.4 %vol (16.0-22.0); Oxyhemoglobin 83.5 % THb (90.0-100.0); PO2 ABG 52.7 mmHg (80.0-100.0); Total Hemoglobin 11.4 g/dL (12.0-18.0); pH ABG 7.328 (7.350-7.450)
[2019-04-23 09:18] LABS: Device NASAL CANNULA; Modified Allen's Test Pass; Oxygen Saturation ABG 83.3 % (95.0-100.0); PCO2 ABG 72.7 mmHg (35.0-45.0); Site Drawn LEFT RADIAL
--- NOTE | 2019-04-23 10:00 | PM.IMHP ---
H&P: HPI History of Present Illness Chief complaint: CHF W/FLUID OVERLOAD Narrative: Joe Vigil is a 73 year old male here for altered mental status and was in respiratory failure on my evaluation. Patiet hospitalized here in February for altered mental status with brain MRI showing central atrophy otherwise normal. Patint was oriented x4 at discharge. Patient back in the hosptial in mid March for AFib/RVR and HCAP. Patient was treated with broad-spectrum IV antibiotics. Patient was on spironolactone but this was not continued. Patient not Lasix at time of discharge and not discharged on lasix from February either. Patient is alert but confused and is having respiratory difficulty. The majority of the history obtained from the chart and from the son. Since discharge, patient did well initially for about a week. More recently, son has noticed increasing leg edema. He was given Lasix about 4 days ago but with minimal benefit. lasix dose increased with minimal improvement with the edema. Patient also has become more confused. Patient may have JAYLAN per son but no formal testing. He does have episodes on n/v with eating and did vomit yesterday morning. Because of the leg edema and confusion, he was brought to the ER last evening. In the ER, his pulse ox is listed as 67% but improved with supplemetnal O2. Chest x-ray showed possible mass. CTA showed bilateral small pleural effusions with large amount of loculated fluid in the right major fissure corresponding to the findings on the chest x-ray. Patchy bilateral airspace consolidation atelectasis, pneumonia or scarring. Also with enlarged pulmonary arteries consistent with pulmonary arterial hypertension. WBC normal and BNP 7400. Lasix IV given and evangelinan admitted to IMU. Called this morning to see tiffany who was struggling. ABG ordered showing 7.33/73/53 on nasal cannula. BiPAP ordered and repeat ABG 7.343/69/102. Tiffany had an Echo in February showing EF 70% with Grade II diastolic dysfunction and Moderate AI and MR. The RA and RV are enlarged. Pulmonary HTN listed on his PMH. Review of Systems Review of Systems: ROS unobtainable: unobtainable due to mental condition and unobtainable due to mental status PMFSH Past Medical History Medical History (Updated 04/23/19 @ 14:30 by Foreign Werner MD) Abdominal aortic aneurysm Arthritis Atrial fibrillation BPH (benign prostatic hyperplasia) Cataract CHF (congestive heart failure) Echo 02/2019 showing EF 70% with moderate AI and MR. Diastolic dysfunction grade II and moderate RA and RV enlargement. Cirrhosis Cyst Removed Depression Diabetes mellitus Foot fracture, right Gallbladder disease HLD (hyperlipidemia) HTN (hypertension) Hypothyroid Pneumonia Seasonal allergies Severe pulmonary arterial systolic hypertension Surgical History Surgical History H/O left knee surgery History of cholecystectomy History of esophagogastroduodenoscopy (EGD) 04/2018 showing gastritis Family History Family History Sibling Colon cancer Mother Congestive heart failure Father Acute myocardial infarction Social History Social History (Updated 04/23/19 @ 14:03 by Foreign Werner MD) Social History: He has 1 son Russel who is his power civil rights attorney. The patient is a DNI. His May of 2017. He was staying at SNF from his last hospitalization Smoking packs per day: 1 Smoking cigarettes per day: 20.0 Years smoked: 30 Smoking pack-years: 30.00 Smoking status: Former smoker Tobacco type: cigarettes Smoking end date: 02/26/03 Alcohol intake: never Substance use: never Substance use type: does not use Additional living arrangements comments: He lives in [place] alone and had caregivers that come 3 times per week. His in 05/2017. He has one son, Srinivasa. Additional occupation/education
[2019-04-23 11:21] LABS: Alveolar/Arterial O2 Gradient 140.4 mmHg; Base Excess ABG 8.7 mEq/l (+/-2.0); Carboxyhemoglobin 0.3 % THb (0-2.0); Fractional Inspired Oxygen 45 %; HCO3 ABG 36.4 mEq/l (22.0-26.0); Methemoglobin ABG 0.5 %THb (0-1.5); Oxygen Content ABG 14.9 %vol (16.0-22.0); Oxygen Saturation ABG 97.2 % (95.0-100.0); Oxyhemoglobin 95.6 % THb (90.0-100.0); PO2 ABG 102.4 mmHg (80.0-100.0); PO2 FiO2 Ratio Arterial Blood 2.28 %; Reduced Hemoglobin 3.6 %THb (0-5.0); pH ABG 7.343 (7.350-7.450)
[2019-04-23 11:22] LABS: Device BIPAP; Modified Allen's Test Pass; PCO2 ABG 68.6 mmHg (35.0-45.0); Site Drawn RIGHT RADIAL
[2019-04-23 11:23] LABS: Expiratory Pressure 8 cmH2O; Inspiratory Pressure 16 cmH2O
[2019-04-23 15:36] LABS: Alanine Aminotransferase 32 U/L (4-50); Albumin Level 3.3 g/dL (3.5-5.1); Alkaline Phosphatase 76 U/L (38-126); Aspartate Amino Transferase 43 U/L (17-59); Bilirubin,Total 0.6 mg/dL (0.2-1.3); Blood Urea Nitrogen 18 mg/dL (9-20); Carbon Dioxide 39 mmol/L (22-30); Chloride 92 mmol/L (98-107); Estimated CRCL calculation 78 ml/min; Estimated Glomerular Filt Rate > 60; Glucose 69 mg/dL (75-110); Magnesium 1.6 mg/dL (1.6-2.3); Potassium 3.6 mmol/L (3.4-5.0); Sodium 137 mmol/L (137-145)
[2019-04-23 15:45] LABS: Iron 36 ug/dL (49-181)
[2019-04-23 15:47] LABS: Troponin I 0.018 ng/mL (0.000-0.034)
[2019-04-23 15:54] LABS: Percent Iron Saturation 15 % (20-50)
[2019-04-23 18:22] LABS: Glucose Point of Care 69 (65-105)
[2019-04-23] MEDS: DEXTROSE 50% 25 GM/50 ML SYRINGE IV PUSH ×2 (18:26→21:28)
[2019-04-23 18:54] LABS: Glucose Point of Care 81 (65-105)
[2019-04-23] MEDS: IPRATROPIUM BR 0.02% INH SOLN 0.5 MG/2.5 ML VIAL INHALATION (21:06)
[2019-04-23 21:15] LABS: Glucose Point of Care 65 (65-105)
[2019-04-23] MEDS: DEXTROSE 10% 1,000 ML 50 ML IV CONT (21:28)
[2019-04-23] MEDS: MAGNESIUM SULF 2 GM/WATER 50ML 2 GM/50 ML BAG IVPB (21:28)
[2019-04-23 22:05] LABS: Glucose Point of Care 101 (65-105)
[2019-04-23] MEDS: LORAZEPAM INJ 2 MG/ML VIAL 0.5 MG IV PUSH (23:09)
[2019-04-24] VITALS (22 sets, daily range): BP systolic 86–131; BP diastolic 50–80; PULSE 61–102; RESP 12–22; TEMP 35.9–36.7; O2SAT 88–100
[2019-04-24] MEDS: FUROSEMIDE INJ 40 MG/4 ML VIAL IV PUSH ×3 (00:02→19:31)
[2019-04-24 00:09] LABS: Glucose Point of Care 89 (65-105)
[2019-04-24] MEDS: IPRATROPIUM BR 0.02% INH SOLN 0.5 MG/2.5 ML VIAL INHALATION ×4 (03:04→19:51)
[2019-04-24 05:23] LABS: Hematocrit 30.5 % (42.0-52.0); Hemoglobin 9.6 g/dL (14.0-18.0); Mean Corpuscular HGB Conc 31.5 g/dl (32-36); Mean Corpuscular Volume 95.3 fl (80-100); Mean Platelet Volume 10.5 fl (7.4-10.4); Platelet Count Result 193 k/mm3 (150-375); Red Cell Distribution Width 13.6 % (11.5-14.5)
[2019-04-24 05:45] LABS: Albumin Level 3.2 g/dL (3.5-5.1); Blood Urea Nitrogen 20 mg/dL (9-20); Calcium 8.1 mg/dL (8.4-10.2); Carbon Dioxide 35 mmol/L (22-30); Chloride 96 mmol/L (98-107); Estimated CRCL calculation 84 ml/min; Estimated Glomerular Filt Rate > 60; Glucose 88 mg/dL (75-110); Phosphorus 3.7 mg/dL (2.5-4.5); Potassium 3.4 mmol/L (3.4-5.0); Sodium 135 mmol/L (137-145)
[2019-04-24 06:18] LABS: Glucose Point of Care 98 (65-105)
[2019-04-24 06:19] LABS: Alveolar/Arterial O2 Gradient 149.4 mmHg; Base Excess ABG 11.6 mEq/l (+/-2.0); Fractional Inspired Oxygen 40 %; HCO3 ABG 39.4 mEq/l (22.0-26.0); Oxygen Content ABG 12.8 %vol (16.0-22.0); Oxyhemoglobin 83.3 % THb (90.0-100.0); PO2 ABG 53.8 mmHg (80.0-100.0); PO2 FiO2 Ratio Arterial Blood 1.35 %; Total Hemoglobin 10.9 g/dL (12.0-18.0)
[2019-04-24 06:23] LABS: Device HIGH FLOW NASAL CANN; Modified Allen's Test Pass; Oxygen Saturation ABG 85.2 % (95.0-100.0); PCO2 ABG 71.3 mmHg (35.0-45.0); Site Drawn RIGHT RADIAL
[2019-04-24] MEDS: LORAZEPAM INJ 2 MG/ML VIAL 0.5 MG IV PUSH ×2 (08:33→09:44)
[2019-04-24 12:23] LABS: Glucose Point of Care 97 (65-105)
--- NOTE | 2019-04-24 14:50 | PM.IMPN ---
Progress Note: A&P Assessment and Plan (1) Acute respiratory failure: Qualifiers: Respiratory failure complication: hypoxia and hypercapnia Qualified Code(s): J96.01 - Acute respiratory failure with hypoxia; J96.02 - Acute respiratory failure with hypercapnia Code(s): J96.00 - Acute respiratory failure, unspecified whether with hypoxia or hypercapnia Status: Acute Assessment and Plan: Patient admitted to IMU. ABG showed and BiPAP started. Repeat ABG showed improvement. He had trouble toelrating the mask last night but ABG showing normal pH but pCO2 worse at 71. Since this morning, patient has been able to tolerate the mask better. Will repeat ABG this afternoon to see if settings need to be adjusted. Contineu nebs. ABG final came back as 7.. Wean BiPAP to be used at night and with naps and prn. (2) Altered mental status: Qualifiers: Altered mental status type: unspecified Qualified Code(s): R41.82 - Altered mental status, unspecified Code(s): R41.82 - Altered mental status, unspecified Status: Acute Assessment and Plan: [place] related to respiratory failure and elevated pCO2. He is much more awake and oriented since starting the BiPAP. He may have untreated JAYLAN which could explain the multiple recent hospitalizations. He will need MBS once he is more stable (3) CHF (congestive heart failure): Qualifiers: Heart failure chronicity: acute on chronic Heart failure type: unspecified Qualified Code(s): I50.9 - Heart failure, unspecified Code(s): I50.9 - Heart failure, unspecified Status: Acute Assessment and Plan: BNP 7400. CXR showing Cardiomegaly wit pulmonary edema and bilateral pleural effusions. There is also a large loculated effusion right mid chest that hopefully will dissipate with diuresis. Good UOP yesterday. Continue IV Lasix. Monitor renal function. (4) HTN (hypertension): Qualifiers: Hypertension type: essential hypertension Qualified Code(s): I10 - Essential (primary) hypertension Code(s): I10 - Essential (primary) hypertension Status: Acute Assessment and Plan: BP reviewed on 04/24/19. BP soft at times. Continue to monitor for now. (5) Diabetes mellitus: Qualifiers: Diabetes mellitus complication status: without complication Diabetes mellitus senior living insulin use: without senior living use Diabetes mellitus type: type 2 Qualified Code(s): E11.9 - Type 2 diabetes mellitus without complications Code(s): E11.9 - Type 2 diabetes mellitus without complications Status: Chronic Assessment and Plan: A1c 5.5 in February so will not repeat. Glucose reviewed on 04/24/19. Glucose dropped in to the 60's and dextrose started. No hillary hypoglycemic epsiodes. Continue accucheks with sliding scale insulin. Hypoglycemia protocol available. Glucose reasonable so will continue IVF but stop once he is eating normally. (6) Cirrhosis: Code(s): K74.60 - Unspecified cirrhosis of liver Status: Acute Assessment and Plan: CT scan last year showing cirrhosis with ascites. LFTs normal with Albumiin 3.3 but INR 1.5 (but on Eliquis). Add ammonia level to morning labs. (7) Hypothyroid: Qualifiers: Hypothyroidism type: unspecified Qualified Code(s): E03.9 - Hypothyroidism, unspecified Code(s): E03.9 - Hypothyroidism, unspecified Status: Chronic Assessment and Plan: TSH normal in March so will not repeat. Continue Levothyroxine. (8) Atrial fibrillation: Code(s): I48.91 - Unspecified atrial fibrillation Status: Acute Assessment and Plan: EKG showing AFlutter. Tele reviewed showing AFib/Flutter. HR well controlled. Continue Amiodarone. Continue Eliquis for stroke prophylaxis. Subjective Date/time seen: 04/24/19 14:50 Interval history: 73yo male h
[2019-04-24 18:31] LABS: Glucose Point of Care 99 (65-105)
[2019-04-24] MEDS: DEXTROSE 10% 1,000 ML 50 ML IV CONT (19:30)
[2019-04-24] MEDS: EUCERIN CREAM 120 GM JAR 1 APPLIC TOPICAL (19:33)
[2019-04-24 20:24] LABS: Alveolar/Arterial O2 Gradient 159.4 mmHg; Base Excess ABG 10.7 mEq/l (+/-2.0); Carboxyhemoglobin 0.3 % THb (0-2.0); Fractional Inspired Oxygen 40 %; HCO3 ABG 36.3 mEq/l (22.0-26.0); Methemoglobin ABG 0.3 %THb (0-1.5); Modified Allen's Test Pass; Oxygen Content ABG 14.1 %vol (16.0-22.0); Oxyhemoglobin 90.9 % THb (90.0-100.0); PCO2 ABG 53.5 mmHg (35.0-45.0); PO2 ABG 64.3 mmHg (80.0-100.0); PO2 FiO2 Ratio Arterial Blood 1.61 %; Reduced Hemoglobin 8.5 %THb (0-5.0); Site Drawn LEFT RADIAL; pH ABG 7.449 (7.350-7.450)
[2019-04-24 20:25] LABS: Device HIGH FLOW NASAL CANN
[2019-04-24 20:45] LABS: Glucose Point of Care 92 (65-105)
--- NOTE | 2019-04-24 22:21 | PC.NURSE ---
Spoke with Dr. Werner and ordered stat abgs on pt at 1955. Tried to call him with results at 2040 but didn't get an answer. They were all in the normal range.
[2019-04-25] VITALS (21 sets, daily range): BP systolic 99–144; BP diastolic 48–107; PULSE 20–78; RESP 20–22; TEMP 36.1–36.6; O2SAT 91–98
[2019-04-25] MEDS: IPRATROPIUM BR 0.02% INH SOLN 0.5 MG/2.5 ML VIAL INHALATION ×4 (01:53→22:00)
[2019-04-25 04:36] LABS: Hematocrit 31.8 % (42.0-52.0); Hemoglobin 9.8 g/dL (14.0-18.0); Mean Corpuscular HGB Conc 30.8 g/dl (32-36); Mean Corpuscular Volume 97.2 fl (80-100); Mean Platelet Volume 10.4 fl (7.4-10.4); Platelet Count Result 203 k/mm3 (150-375); Red Blood Count 3.27 M/mm3 (4.6-6.20); Red Cell Distribution Width 13.8 % (11.5-14.5); White Blood Count 5.1 K/mm3 (4.5-10.0)
[2019-04-25 04:53] LABS: Albumin Level 3.2 g/dL (3.5-5.1); Blood Urea Nitrogen 18 mg/dL (9-20); Calcium 8.1 mg/dL (8.4-10.2); Carbon Dioxide > 40 mmol/L (22-30); Chloride 91 mmol/L (98-107); Estimated CRCL calculation 76 ml/min; Estimated Glomerular Filt Rate > 60; Glucose 108 mg/dL (75-110); Magnesium 1.9 mg/dL (1.6-2.3); Phosphorus 3.9 mg/dL (2.5-4.5); Potassium 2.8 mmol/L (3.4-5.0); Sodium 135 mmol/L (137-145)
[2019-04-25 04:55] LABS: Ammonia < 9 umol/L (9-30)
--- NOTE | 2019-04-25 06:38 | P.CDI_ITS ---
CDI Query Clarification Request -CHF acute on chronic has been documented - Patient had an Echo in February showing EF 70% with Grade II diastolic dysfunction and Moderate AI and MR has been documented -Coders cannot code from echo results Please further specify type of CHF: * Systolic * Diastolic * Combined systolic and diastolic * Unable to determine <Stephanie Snyder RN - Last Filed: 04/25/19 09:45>
[2019-04-25 08:34] LABS: Glucose Point of Care 107 (65-105)
[2019-04-25] MEDS: EUCERIN CREAM 120 GM JAR 1 APPLIC TOPICAL (10:10)
[2019-04-25] MEDS: FUROSEMIDE INJ 40 MG/4 ML VIAL IV PUSH ×2 (10:10→20:45)
--- NOTE | 2019-04-25 10:33 | PM.IMPN ---
Progress Note: A&P Assessment and Plan (1) Acute respiratory failure: Qualifiers: Respiratory failure complication: hypoxia and hypercapnia Qualified Code(s): J96.01 - Acute respiratory failure with hypoxia; J96.02 - Acute respiratory failure with hypercapnia Code(s): J96.00 - Acute respiratory failure, unspecified whether with hypoxia or hypercapnia Status: Acute Assessment and Plan: No longer wearing BiPAP. Currently on oxygen at 5 L by nasal cannula. Continue nebulizer treatments. Continue diuresis as noted below. Concern was for swallowing issues. Has been NPO. MBS ordered. Hopefully will pass MBS and start diet. Will plan to move to medical floor with telemetry as stable. MBS completed today with recommendation for easy to chew and nectar thickened liquids. Resume diet this evening along with restarting oral medications. (2) Altered mental status: Qualifiers: Altered mental status type: unspecified Qualified Code(s): R41.82 - Altered mental status, unspecified Code(s): R41.82 - Altered mental status, unspecified Status: Acute Assessment and Plan: [place] related to respiratory failure and elevated pCO2. Awake. Still has some confusion. May have untreated sleep apnea. No longer using BiPAP. Will monitor. (3) CHF (congestive heart failure): Qualifiers: Heart failure chronicity: acute on chronic Heart failure type: diastolic Qualified Code(s): I50.33 - Acute on chronic diastolic (congestive) heart failure Code(s): I50.9 - Heart failure, unspecified Status: Acute Assessment and Plan: Echocardiogram in February 2019 with EF greater than 70%, diastolic dysfunction grade 2 and mild to moderate mitral valve regurgitation. Will continue IV Lasix for diuresis at this time. (4) Hypokalemia: Code(s): E87.6 - Hypokalemia Status: Acute Assessment and Plan: Potassium 2.8 today. Receiving IV potassium replacement. Will continue to monitor and replace as needed. (5) HTN (hypertension): Qualifiers: Hypertension type: essential hypertension Qualified Code(s): I10 - Essential (primary) hypertension Code(s): I10 - Essential (primary) hypertension Status: Acute Assessment and Plan: Blood pressure reviewed on 04/25/2019. Currently stable. Oral medications on hold. Will monitor with IV Lasix in place. (6) Diabetes mellitus: Qualifiers: Diabetes mellitus complication status: without complication Diabetes mellitus regulatory internship insulin use: without regulatory internship use Diabetes mellitus type: type 2 Qualified Code(s): E11.9 - Type 2 diabetes mellitus without complications Code(s): E11.9 - Type 2 diabetes mellitus without complications Status: Chronic Assessment and Plan: HgbA1C 5.5 in February 2019. Glucose reviewed on 04/25/2019 and presently stable but low normal with D10 IV fluids in place. Will continue to monitor. Hypoglycemia protocol available if needed. Hopefully blood sugar will improve with resuming diet. (7) Atrial fibrillation: Qualifiers: Atrial fibrillation type: longstanding persistent Qualified Code(s): I48.11 - Longstanding persistent atrial fibrillation Code(s): I48.91 - Unspecified atrial fibrillation Status: Acute Assessment and Plan: Telemetry reviewed on 04/25/2019 with atrial fibrillation with heart rate well controlled. Has not been receiving amiodarone or Eliquis with NPO status. Will give therapeutic Lovenox while awaiting MBS. Hopefully can resume amiodarone if passes MBS. Able to pass MBS as noted above. Will resume oral amiodarone and Eliquis. (8) Hypothyroid: Qualifiers: Hypothyroidism type: unspecified Qualified Code(s): E03.9 - Hypothyroidism, unspecified Code(s): E03.9 - Hypothyroidism, unspecified Status: Chronic Assessment and Plan: TSH normal in March wi
[2019-04-25 13:17] LABS: Glucose Point of Care 104 (65-105)
[2019-04-25] MEDS: ENOXAPARIN 120 MG/0.8 ML SYRINGE 110 MG SUB-Q (16:11)
[2019-04-25] MEDS: PANTOPRAZOLE SODIUM IV 40 MG VIAL IV PUSH ×2 (16:11→20:45)
[2019-04-25] MEDS: LEVOTHYROXINE SODIUM INJ 100 MCG/5 ML VIAL 18.75 MCG IV PUSH (16:11)
[2019-04-25] MEDS: ACETAMINOPHEN 325 MG TABLET 650 MG PO (16:21)
[2019-04-25] MEDS: DEXTROSE 10% 1,000 ML 50 ML IV CONT (16:22)
[2019-04-25 17:10] LABS: Glucose Point of Care 94 (65-105)
[2019-04-25] MEDS: ATORVASTATIN 40 MG TABLET PO (20:45)
[2019-04-25] MEDS: TRAZODONE HCL 50 MG TABLET PO (20:46)
[2019-04-25 21:41] LABS: Glucose Point of Care 116 (65-105)
[2019-04-26] VITALS (19 sets, daily range): BP systolic 104–119; BP diastolic 42–63; PULSE 61–107; RESP 18–22; TEMP 36.1–36.4; O2SAT 90–100
[2019-04-26 00:21] LABS: Glucose Point of Care 103 (65-105)
[2019-04-26] MEDS: IPRATROPIUM BR 0.02% INH SOLN 0.5 MG/2.5 ML VIAL INHALATION ×4 (01:45→20:57)
[2019-04-26 06:09] LABS: Glucose Point of Care 77 (65-105)
[2019-04-26 06:19] LABS: Blood Urea Nitrogen 16 mg/dL (9-20); Calcium 7.6 mg/dL (8.4-10.2); Carbon Dioxide > 40 mmol/L (22-30); Chloride 89 mmol/L (98-107); Estimated CRCL calculation 84 ml/min; Estimated Glomerular Filt Rate > 60; Glucose 85 mg/dL (75-110); Magnesium 1.8 mg/dL (1.6-2.3); Sodium 135 mmol/L (137-145)
[2019-04-26] MEDS: LEVOTHYROXINE SODIUM 12.5 MCG TABLET PO (06:30)
[2019-04-26] MEDS: LEVOTHYROXINE SODIUM 25 MCG TABLET PO (06:30)
[2019-04-26 08:26] LABS: Glucose Point of Care 68 (65-105)
[2019-04-26] MEDS: EUCERIN CREAM 120 GM JAR 1 APPLIC TOPICAL (10:12)
[2019-04-26] MEDS: PANTOPRAZOLE SODIUM IV 40 MG VIAL IV PUSH ×2 (10:12→20:54)
[2019-04-26] MEDS: POTASSIUM CHLORIDE 20 MEQ TABLET.ER 40 MEQ PO (10:12)
[2019-04-26] MEDS: ASPIRIN 81 MG ENTERIC TABLET PO (10:13)
[2019-04-26] MEDS: FERROUS SULFATE 324 MG TABLET 325 MG PO (10:13)
[2019-04-26] MEDS: FINASTERIDE 5 MG TABLET PO (10:13)
[2019-04-26] MEDS: FOLIC ACID 0.4 MG TABLET 0.8 MG PO (10:14)
[2019-04-26] MEDS: FUROSEMIDE INJ 40 MG/4 ML VIAL IV PUSH ×2 (10:14→20:54)
[2019-04-26] MEDS: APIXABAN 5 MG TABLET PO ×2 (10:14→20:54)
[2019-04-26] MEDS: TAMSULOSIN HCL 0.4 MG CAPSULE 0.8 MG PO (10:15)
[2019-04-26] MEDS: THERAPEUTIC MULTIVITAMINS/MINERALS TAB (*BKC) 1 TABLET PO (10:15)
[2019-04-26] MEDS: SERTRALINE HCL 50 MG TABLET PO (10:15)
[2019-04-26] MEDS: AMIODARONE HCL 200 MG TABLET PO (10:16)
[2019-04-26 10:19] LABS: Glucose Point of Care 73 (65-105)
[2019-04-26] MEDS: DEXTROSE 10% 1,000 ML 50 ML IV CONT (10:19)
--- NOTE | 2019-04-26 10:41 | PM.IMPN ---
Progress Note: A&P Assessment and Plan (1) Acute respiratory failure: Qualifiers: Respiratory failure complication: hypoxia and hypercapnia Qualified Code(s): J96.01 - Acute respiratory failure with hypoxia; J96.02 - Acute respiratory failure with hypercapnia Code(s): J96.00 - Acute respiratory failure, unspecified whether with hypoxia or hypercapnia Status: Acute Assessment and Plan: No longer requiring BiPAP. Has weaned down to 3 L of oxygen by nasal cannula. Will continue nebulizer treatments. Continue diuresis as noted below. MBS was completed on 04/25/2019 with recommendation for easy to chew nectar thickened liquids. Tolerating diet well. Will add PT/OT. Plan for SNF at discharge. (2) Altered mental status: Qualifiers: Altered mental status type: unspecified Qualified Code(s): R41.82 - Altered mental status, unspecified Code(s): R41.82 - Altered mental status, unspecified Status: Acute Assessment and Plan: [place] related to respiratory failure and elevated pCO2. Contusion appears to be resolved today. No longer using BiPAP. Will monitor. (3) CHF (congestive heart failure): Qualifiers: Heart failure type: diastolic Heart failure chronicity: acute on chronic Qualified Code(s): I50.33 - Acute on chronic diastolic (congestive) heart failure Code(s): I50.9 - Heart failure, unspecified Status: Acute Assessment and Plan: Echocardiogram in February 2019 with EF greater than 70%, diastolic dysfunction grade 2 and mild to moderate mitral valve regurgitation. Improving. Will continue IV Lasix for diuresis at this time. (4) Hypokalemia: Code(s): E87.6 - Hypokalemia Status: Acute Assessment and Plan: Potassium 3.0 today with oral replacement given. Will repeat later today. Continue to monitor replace as needed. (5) HTN (hypertension): Qualifiers: Hypertension type: essential hypertension Qualified Code(s): I10 - Essential (primary) hypertension Code(s): I10 - Essential (primary) hypertension Status: Acute Assessment and Plan: Blood pressure reviewed on 04/26/2019 and remains stable. Continue to monitor with IV Lasix place. (6) Diabetes mellitus: Qualifiers: Diabetes mellitus type: type 2 Diabetes mellitus superintendent terminal insulin use: without usp use Diabetes mellitus complication status: without complication Qualified Code(s): E11.9 - Type 2 diabetes mellitus without complications Code(s): E11.9 - Type 2 diabetes mellitus without complications Status: Chronic Assessment and Plan: HgbA1C 5.5 in February 2019. Glucose reviewed on 04/26/2019. Glucose continues to remain low normal with IV fluids with D10 in place. Hypoglycemia protocol available as needed. Will continue to monitor. Discontinue D10 when able. (7) Atrial fibrillation: Qualifiers: Atrial fibrillation type: longstanding persistent Qualified Code(s): I48.11 - Longstanding persistent atrial fibrillation Code(s): I48.91 - Unspecified atrial fibrillation Status: Acute Assessment and Plan: Telemetry reviewed on 04/26/2019 with atrial fibrillation with heart rate remaining well controlled. Will continue oral amiodarone. Continue Eliquis for anticoagulation. Will monitor. (8) Hypothyroid: Qualifiers: Hypothyroidism type: unspecified Qualified Code(s): E03.9 - Hypothyroidism, unspecified Code(s): E03.9 - Hypothyroidism, unspecified Status: Chronic Assessment and Plan: TSH normal in March so will not repeat. Will continue oral levothyroxine. (9) Cirrhosis: Qualifiers: Hepatic cirrhosis type: unspecified hepatic cirrhosis Ascites presence: with ascites Qualified Code(s): K74.60 - Unspecified cirrhosis of liver; R18.8 - Other ascites Code(s): K74.60 - Unspecified cirrhosis of liver Stat
[2019-04-26 12:20] LABS: Glucose Point of Care 93 (65-105)
[2019-04-26 12:25] LABS: Potassium 2.9 mmol/L (3.4-5.0)
[2019-04-26 13:49] LABS: Glucose Point of Care 102 (65-105)
[2019-04-26 14:41] LABS: Alveolar/Arterial O2 Gradient 76.7 mmHg; Base Excess ABG 11.2 mEq/l (+/-2.0); Fractional Inspired Oxygen 32 %; HCO3 ABG 37.3 mEq/l (22.0-26.0); Oxygen Content ABG 14.7 %vol (16.0-22.0); Oxygen Saturation ABG 96.4 % (95.0-100.0); Oxyhemoglobin 94.7 % THb (90.0-100.0); PCO2 ABG 57.2 mmHg (35.0-45.0); PO2 ABG 84.5 mmHg (80.0-100.0); PO2 FiO2 Ratio Arterial Blood 2.64 %; pH ABG 7.432 (7.350-7.450)
[2019-04-26 14:42] LABS: Device NASAL CANNULA; Site Drawn RIGHT BRACHIAL
[2019-04-26] MEDS: POTASSIUM CHLORIDE 20 MEQ TABLET 40 MEQ PO (17:01)
[2019-04-26] MEDS: DOCUSATE SODIUM 100 MG CAPSULE PO ×2 (17:01→20:54)
[2019-04-26 17:12] LABS: Glucose Point of Care 102 (65-105)
[2019-04-26] MEDS: ATORVASTATIN 40 MG TABLET PO (20:54)
[2019-04-26] MEDS: TRAZODONE HCL 50 MG TABLET PO (20:54)
--- NOTE | 2019-04-26 22:44 | PC.NURSE ---
patient is pulling at tubes, pulling off oxygen and pulling out his IV. Trying to redirect with no success. Close monitoring continues
[2019-04-27] VITALS (17 sets, daily range): BP systolic 97–131; BP diastolic 48–68; PULSE 61–90; RESP 16–26; TEMP 36.1–36.5; O2SAT 83–97
[2019-04-27] MEDS: LORAZEPAM INJ 2 MG/ML VIAL 0.5 MG IV PUSH (00:53)
[2019-04-27] MEDS: IPRATROPIUM BR 0.02% INH SOLN 0.5 MG/2.5 ML VIAL INHALATION ×4 (03:30→20:45)
[2019-04-27] MEDS: LEVOTHYROXINE SODIUM 12.5 MCG TABLET PO (06:42)
[2019-04-27] MEDS: LEVOTHYROXINE SODIUM 25 MCG TABLET PO (06:42)
[2019-04-27 06:56] LABS: Glucose Point of Care 143 (65-105)
[2019-04-27 06:59] LABS: Blood Urea Nitrogen 17 mg/dL (9-20); Calcium 7.9 mg/dL (8.4-10.2); Carbon Dioxide > 40 mmol/L (22-30); Chloride 89 mmol/L (98-107); Estimated CRCL calculation 82 ml/min; Estimated Glomerular Filt Rate > 60; Glucose 90 mg/dL (75-110); Magnesium 1.8 mg/dL (1.6-2.3); Potassium 3.3 mmol/L (3.4-5.0); Sodium 134 mmol/L (137-145)
[2019-04-27] MEDS: FERROUS SULFATE 324 MG TABLET 325 MG PO (08:14)
[2019-04-27] MEDS: FINASTERIDE 5 MG TABLET PO (08:15)
[2019-04-27] MEDS: AMIODARONE HCL 200 MG TABLET PO (08:16)
[2019-04-27] MEDS: ASPIRIN 81 MG ENTERIC TABLET PO (08:18)
[2019-04-27] MEDS: POTASSIUM CHLORIDE 20 MEQ TABLET.ER 40 MEQ PO (08:18)
[2019-04-27] MEDS: DOCUSATE SODIUM 100 MG CAPSULE PO ×2 (08:18→21:47)
[2019-04-27] MEDS: APIXABAN 5 MG TABLET PO ×2 (08:18→21:47)
[2019-04-27] MEDS: FUROSEMIDE INJ 40 MG/4 ML VIAL IV PUSH ×2 (08:19→21:47)
[2019-04-27] MEDS: THERAPEUTIC MULTIVITAMINS/MINERALS TAB (*BKC) 1 TABLET PO (08:19)
[2019-04-27] MEDS: SERTRALINE HCL 50 MG TABLET PO (08:19)
[2019-04-27] MEDS: TAMSULOSIN HCL 0.4 MG CAPSULE 0.8 MG PO (08:19)
[2019-04-27] MEDS: EUCERIN CREAM 120 GM JAR 1 APPLIC TOPICAL (08:19)
[2019-04-27] MEDS: FOLIC ACID 0.4 MG TABLET 0.8 MG PO (08:19)
[2019-04-27] MEDS: PANTOPRAZOLE SODIUM IV 40 MG VIAL IV PUSH ×2 (08:20→21:47)
[2019-04-27 12:07] LABS: Glucose Point of Care 87 (65-105)
[2019-04-27] MEDS: DEXTROSE 10% 1,000 ML 50 ML IV CONT (12:08)
--- NOTE | 2019-04-27 13:30 | PM.IMPN ---
Progress Note: A&P Assessment and Plan (1) Acute respiratory failure: Qualifiers: Respiratory failure complication: hypoxia and hypercapnia Qualified Code(s): J96.01 - Acute respiratory failure with hypoxia; J96.02 - Acute respiratory failure with hypercapnia Code(s): J96.00 - Acute respiratory failure, unspecified whether with hypoxia or hypercapnia Status: Acute Assessment and Plan: Back on BiPAP. Did not wear BiPAP last night. Patient is son's father in law present today and reports son has told him patient has had sleep apnea for some time but not treated. Repeat ABG done later this afternoon with pCO2 of 69 but had leak on BiPAP most of the day. Will hold off on making any changes on BiPAP as a result. Continue nebulizer treatments. Continue diuresis. No longer requiring BiPAP. MBS was completed on 04/25/2019 with recommendation for easy to chew nectar thickened liquids. Continue PT/OT. Anticipate will need BiPAP upon return to SNF at discharge. (2) Altered mental status: Qualifiers: Altered mental status type: unspecified Qualified Code(s): R41.82 - Altered mental status, unspecified Code(s): R41.82 - Altered mental status, unspecified Status: Acute Assessment and Plan: [place] related to respiratory failure and elevated pCO2. Back on BiPAP as noted above. Will monitor. (3) CHF (congestive heart failure): Qualifiers: Heart failure chronicity: acute on chronic Heart failure type: diastolic Qualified Code(s): I50.33 - Acute on chronic diastolic (congestive) heart failure Code(s): I50.9 - Heart failure, unspecified Status: Acute Assessment and Plan: Echocardiogram in February 2019 with EF greater than 70%, diastolic dysfunction grade 2 and mild to moderate mitral valve regurgitation. Continue IV Lasix for now. Will monitor. (4) Hypokalemia: Code(s): E87.6 - Hypokalemia Status: Acute Assessment and Plan: Potassium up to 3.3 today with oral replacement adjusted. Continue to monitor and replace as needed. (5) HTN (hypertension): Qualifiers: Hypertension type: essential hypertension Qualified Code(s): I10 - Essential (primary) hypertension Code(s): I10 - Essential (primary) hypertension Status: Acute Assessment and Plan: Blood pressure reviewed on 04/27/2019. Blood pressure low-normal range but stable. Continue to monitor with IV Lasix place. (6) Diabetes mellitus: Qualifiers: Diabetes mellitus complication status: without complication Diabetes mellitus residential insulin use: without termite inspector use Diabetes mellitus type: type 2 Qualified Code(s): E11.9 - Type 2 diabetes mellitus without complications Code(s): E11.9 - Type 2 diabetes mellitus without complications Status: Chronic Assessment and Plan: HgbA1C 5.5 in February 2019. Glucose reviewed on 04/27/2019. Glucose remains in low-normal range with IV fluids with D10 in place. May try to wean back to D5 in IV fluids once complaints current bag but will not happen until tomorrow. Hypoglycemia protocol available as needed. Will continue to monitor. Discontinue D10 when able. (7) Atrial fibrillation: Qualifiers: Atrial fibrillation type: longstanding persistent Qualified Code(s): I48.11 - Longstanding persistent atrial fibrillation Code(s): I48.91 - Unspecified atrial fibrillation Status: Acute Assessment and Plan: Telemetry reviewed on 04/27/2019 with atrial fibrillation with heart rate remaining controlled. Will continue oral amiodarone. Continue Eliquis for anticoagulation. Will monitor. (8) Hypothyroid: Qualifiers: Hypothyroidism type: unspecified Qualified Code(s): E03.9 - Hypothyroidism, unspecified Code(s): E03.9 - Hypothyroidism, unspecified Status: Chronic Assessment and Plan: TSH normal in March so will no
--- NOTE | 2019-04-27 14:58 | PCSTNOTE ---
The patient treatment was not able to be completed on 04/27/19 due to being on a Bi-Pap today with other medical issues. Will plan to continue treatment per plan of care tomorrow.
--- NOTE | 2019-04-27 15:22 | PCPTNOTE ---
The PT treatment was unable to be completed today. Patient unable to stay awake and participate. Will continue per Plan of Care frequency and duration.
[2019-04-27 15:34] LABS: Alveolar/Arterial O2 Gradient 46.3 mmHg; Carboxyhemoglobin 0.3 % THb (0-2.0); Fractional Inspired Oxygen 30 %; HCO3 ABG 44.3 mEq/l (22.0-26.0); Methemoglobin ABG 0.3 %THb (0-1.5); Oxygen Content ABG 14.4 %vol (16.0-22.0); Oxygen Saturation ABG 96.3 % (95.0-100.0); PO2 ABG 86.3 mmHg (80.0-100.0); PO2 FiO2 Ratio Arterial Blood 2.88 %; Reduced Hemoglobin 4.4 %THb (0-5.0); Total Hemoglobin 10.7 g/dL (12.0-18.0); pH ABG 7.424 (7.350-7.450)
[2019-04-27 15:35] LABS: PCO2 ABG 69.2 mmHg (35.0-45.0)
[2019-04-27 15:36] LABS: Device BIPAP; Expiratory Pressure 8 cmH2O; Inspiratory Pressure 17 cmH2O; Modified Allen's Test Pass; Site Drawn RIGHT RADIAL
--- NOTE | 2019-04-27 15:53 | PCOTNOTE ---
Attempted to see patient this p.m. Patient asleep upon entry and family member present in room. Family reports of patient being tired and doesn't think patient will participate well in OT session at this time. OT session not completed this date.
[2019-04-27 17:04] LABS: Glucose Point of Care 110 (65-105)
[2019-04-27] MEDS: ATORVASTATIN 40 MG TABLET PO (21:47)
[2019-04-27] MEDS: TRAZODONE HCL 50 MG TABLET PO (21:47)
[2019-04-27 22:10] LABS: Glucose Point of Care 114 (65-105)
[2019-04-28] VITALS (25 sets, daily range): BP systolic 69–122; BP diastolic 40–64; PULSE 59–110; RESP 13–24; TEMP 36–36.5; O2SAT 92–100
[2019-04-28] MEDS: IPRATROPIUM BR 0.02% INH SOLN 0.5 MG/2.5 ML VIAL INHALATION ×4 (01:10→19:22)
[2019-04-28 05:46] LABS: Blood Urea Nitrogen 18 mg/dL (9-20); Carbon Dioxide > 40 mmol/L (22-30); Chloride 86 mmol/L (98-107); Estimated CRCL calculation 75 ml/min; Estimated Glomerular Filt Rate > 60; Glucose 103 mg/dL (75-110); Magnesium 1.8 mg/dL (1.6-2.3); Potassium 3.2 mmol/L (3.4-5.0); Sodium 133 mmol/L (137-145)
[2019-04-28] MEDS: LEVOTHYROXINE SODIUM 25 MCG TABLET PO (06:26)
[2019-04-28] MEDS: LEVOTHYROXINE SODIUM 12.5 MCG TABLET PO (06:26)
--- NOTE | 2019-04-28 08:01 | PM.IMPN ---
Progress Note: A&P Assessment and Plan (1) Acute respiratory failure: Qualifiers: Respiratory failure complication: hypoxia and hypercapnia Qualified Code(s): J96.01 - Acute respiratory failure with hypoxia; J96.02 - Acute respiratory failure with hypercapnia Code(s): J96.00 - Acute respiratory failure, unspecified whether with hypoxia or hypercapnia Status: Acute Assessment and Plan: On oxygen by nasal cannula at 4 L this morning. Was using BiPAP yesterday but had air leak for a good portion of the day. Did not use BiPAP last night. ABG this morning with pCO2 81. Will place back on BiPAP. Patient denies history of sleep apnea to me but family reports history of untreated sleep apnea. Repeat chest x-ray this morning. MBS was completed on 04/25/2019 with recommendation for easy to chew and nectar thickened liquids. Continue PT/OT as tolerates. Will see how patient is doing after returned to BiPAP. Will need to find out what he is willing to do for treatment. If not willing to wear BiPAP, may need to consider comfort measures. Will consult pulmonology for additional input. (2) Altered mental status: Qualifiers: Altered mental status type: unspecified Qualified Code(s): R41.82 - Altered mental status, unspecified Code(s): R41.82 - Altered mental status, unspecified Status: Acute Assessment and Plan: [place] related to respiratory failure and elevated pCO2. Despite pCO2 higher today, he is actually more awake. Not fully alert. Will follow. (3) CHF (congestive heart failure): Qualifiers: Heart failure chronicity: acute on chronic Heart failure type: diastolic Qualified Code(s): I50.33 - Acute on chronic diastolic (congestive) heart failure Code(s): I50.9 - Heart failure, unspecified Status: Acute Assessment and Plan: Echocardiogram in February 2019 with EF greater than 70%, diastolic dysfunction grade 2 and mild to moderate mitral valve regurgitation. Continue IV Lasix. Repeat chest x-ray this morning. Will monitor. (4) Hypokalemia: Code(s): E87.6 - Hypokalemia Status: Acute Assessment and Plan: Potassium was unable to receive 2nd dose of potassium yesterday. Will give oral replacement as able. Continue to monitor. (5) HTN (hypertension): Qualifiers: Hypertension type: essential hypertension Qualified Code(s): I10 - Essential (primary) hypertension Code(s): I10 - Essential (primary) hypertension Status: Acute Assessment and Plan: Blood pressure reviewed on 04/28/2019. Blood pressure remains low-normal range but stable. Continue to monitor with IV Lasix place. (6) Diabetes mellitus: Qualifiers: Diabetes mellitus complication status: without complication Diabetes mellitus assisted insulin use: without instructional leader use Diabetes mellitus type: type 2 Qualified Code(s): E11.9 - Type 2 diabetes mellitus without complications Code(s): E11.9 - Type 2 diabetes mellitus without complications Status: Chronic Assessment and Plan: HgbA1C 5.5 in February 2019. Glucose reviewed on 04/28/2019. Glucose remains in low-normal range with IV fluids with D10 in place. Will try to wean back to D5 in IV fluids today. Hypoglycemia protocol available as needed. Will continue to monitor. (7) Atrial fibrillation: Qualifiers: Atrial fibrillation type: longstanding persistent Qualified Code(s): I48.11 - Longstanding persistent atrial fibrillation Code(s): I48.91 - Unspecified atrial fibrillation Status: Acute Assessment and Plan: Telemetry reviewed on 04/28/2019 with atrial fibrillation with heart rate controlled. Will continue oral amiodarone. Continue Eliquis for anticoagulation. Will monitor. (8) Hypothyroid: Qualifiers: Hypothyroidism type: unspecified Qualified Code(s): E03.9 - Hypothyroidism, unspecified Code(
[2019-04-28 08:02] LABS: Alveolar/Arterial O2 Gradient 81.7 mmHg; Base Excess ABG 16.9 mEq/l (+/-2.0); Carboxyhemoglobin 0.2 % THb (0-2.0); Fractional Inspired Oxygen 36 %; HCO3 ABG 45.5 mEq/l (22.0-26.0); Methemoglobin ABG 0.3 %THb (0-1.5); Oxygen Content ABG 14.2 %vol (16.0-22.0); Oxygen Saturation ABG 94.9 % (95.0-100.0); PO2 ABG 80.8 mmHg (80.0-100.0); PO2 FiO2 Ratio Arterial Blood 2.24 %; Reduced Hemoglobin 5.5 %THb (0-5.0); Total Hemoglobin 10.7 g/dL (12.0-18.0); pH ABG 7.366 (7.350-7.450)
[2019-04-28 08:07] LABS: PCO2 ABG 81.2 mmHg (35.0-45.0)
[2019-04-28 08:08] LABS: Modified Allen's Test Pass; Site Drawn RIGHT RADIAL
[2019-04-28 08:09] LABS: Glucose Point of Care 84 (65-105)
[2019-04-28 08:09] LABS: Device HIGH FLOW NASAL CANN
[2019-04-28] MEDS: DEXTROSE 5%/0.9% SOD CHL 1,000 ML 50 ML IV CONT (08:30)
[2019-04-28] MEDS: POTASSIUM CHLORIDE 20 MEQ TABLET.ER 40 MEQ PO ×2 (08:32→18:45)
[2019-04-28] MEDS: APIXABAN 5 MG TABLET PO ×2 (08:33→21:22)
[2019-04-28] MEDS: FERROUS SULFATE 324 MG TABLET 325 MG PO (08:34)
[2019-04-28] MEDS: ASPIRIN 81 MG ENTERIC TABLET PO (08:34)
[2019-04-28] MEDS: FUROSEMIDE INJ 40 MG/4 ML VIAL IV PUSH ×2 (08:35→21:22)
[2019-04-28] MEDS: FOLIC ACID 0.4 MG TABLET 0.8 MG PO (08:35)
[2019-04-28] MEDS: FINASTERIDE 5 MG TABLET PO (08:35)
[2019-04-28] MEDS: EUCERIN CREAM 120 GM JAR 1 APPLIC TOPICAL (08:36)
[2019-04-28] MEDS: SERTRALINE HCL 50 MG TABLET PO (08:36)
[2019-04-28] MEDS: THERAPEUTIC MULTIVITAMINS/MINERALS TAB (*BKC) 1 TABLET PO (08:36)
[2019-04-28] MEDS: PANTOPRAZOLE SODIUM IV 40 MG VIAL IV PUSH ×2 (08:36→21:22)
[2019-04-28] MEDS: TAMSULOSIN HCL 0.4 MG CAPSULE 0.8 MG PO (08:36)
[2019-04-28] MEDS: DOCUSATE SODIUM 100 MG CAPSULE PO ×2 (08:38→21:22)
[2019-04-28] MEDS: AMIODARONE HCL 200 MG TABLET PO (08:42)
--- NOTE | 2019-04-28 09:57 | PCNWS ---
Weekly nutritional screen. Pt admitted with fluid overload. Current lab work Na at 133, K 3.2, and Ca 8.0, r/t admit Dx. Noted KCl in MAR. Patient is on cardiac, easy to chew (level 7) diet with mildly thick (level 2) liquids with adequate intake. Meal tray intake ranges from 90-100%. No weight loss reported. Not appropriate for education, pt admitted from and will be d/c to SNF. No nutritional needs at this time.
--- NOTE | 2019-04-28 10:21 | PCOTNOTE ---
Per nursing, patient unable to be seen for OT at this time to keep bi-pap on. If time permits, will attempt to see patient this PM or continue plan of care tomorrow, 04/29/19.
[2019-04-28 14:10] LABS: Glucose Point of Care 83 (65-105)
[2019-04-28 19:08] LABS: Glucose Point of Care 84 (65-105)
[2019-04-28] MEDS: ATORVASTATIN 40 MG TABLET PO (21:22)
[2019-04-28] MEDS: TRAZODONE HCL 50 MG TABLET PO (21:22)
[2019-04-28 21:47] LABS: Glucose Point of Care 115 (65-105)
[2019-04-29] VITALS (17 sets, daily range): BP systolic 98–133; BP diastolic 58–70; PULSE 58–95; RESP 14–20; TEMP 36.2–36.6; O2SAT 93–97
[2019-04-29] MEDS: IPRATROPIUM BR 0.02% INH SOLN 0.5 MG/2.5 ML VIAL INHALATION ×4 (00:52→19:44)
[2019-04-29] MEDS: DEXTROSE 5%/0.9% SOD CHL 1,000 ML 50 ML IV CONT (04:08)
[2019-04-29] MEDS: LEVOTHYROXINE SODIUM 12.5 MCG TABLET PO (05:41)
[2019-04-29] MEDS: LEVOTHYROXINE SODIUM 25 MCG TABLET PO (05:41)
[2019-04-29 05:47] LABS: Glucose Point of Care 82 (65-105)
[2019-04-29 06:14] LABS: Potassium 3.8 mmol/L (3.4-5.0)
[2019-04-29 06:28] LABS: Blood Urea Nitrogen 17 mg/dL (9-20); Calcium 7.8 mg/dL (8.4-10.2); Carbon Dioxide > 40 mmol/L (22-30); Chloride 87 mmol/L (98-107); Estimated CRCL calculation 75 ml/min; Estimated Glomerular Filt Rate > 60; Glucose 81 mg/dL (75-110); Sodium 134 mmol/L (137-145)
[2019-04-29] MEDS: THERAPEUTIC MULTIVITAMINS/MINERALS TAB (*BKC) 1 TABLET PO (09:11)
[2019-04-29] MEDS: FINASTERIDE 5 MG TABLET PO (09:11)
[2019-04-29] MEDS: POTASSIUM CHLORIDE 20 MEQ TABLET.ER 40 MEQ PO ×2 (09:11→17:11)
[2019-04-29] MEDS: TAMSULOSIN HCL 0.4 MG CAPSULE 0.8 MG PO (09:11)
[2019-04-29] MEDS: FOLIC ACID 0.4 MG TABLET 0.8 MG PO (09:11)
[2019-04-29] MEDS: FERROUS SULFATE 324 MG TABLET 325 MG PO (09:12)
[2019-04-29] MEDS: AMIODARONE HCL 200 MG TABLET PO (09:12)
[2019-04-29] MEDS: PANTOPRAZOLE SODIUM IV 40 MG VIAL IV PUSH ×2 (09:13→20:57)
[2019-04-29] MEDS: SERTRALINE HCL 50 MG TABLET PO (09:13)
[2019-04-29] MEDS: ASPIRIN 81 MG ENTERIC TABLET PO (09:13)
[2019-04-29] MEDS: DOCUSATE SODIUM 100 MG CAPSULE PO ×2 (09:13→20:56)
[2019-04-29] MEDS: APIXABAN 5 MG TABLET PO ×2 (09:13→20:52)
[2019-04-29] MEDS: EUCERIN CREAM 120 GM JAR 1 APPLIC TOPICAL (09:13)
[2019-04-29] MEDS: FUROSEMIDE INJ 40 MG/4 ML VIAL IV PUSH ×2 (09:14→20:52)
--- NOTE | 2019-04-29 11:05 | PM.IMPN ---
Progress Note: A&P Assessment and Plan (1) Acute respiratory failure: Qualifiers: Respiratory failure complication: hypoxia and hypercapnia Qualified Code(s): J96.01 - Acute respiratory failure with hypoxia; J96.02 - Acute respiratory failure with hypercapnia Code(s): J96.00 - Acute respiratory failure, unspecified whether with hypoxia or hypercapnia Status: Acute Assessment and Plan: On oxygen by nasal cannula at 3 L this morning. PCO2 up to 81 yesterday morning but had not been using BiPAP. Had long discussion with son regarding overall patient condition and plans for care. Son aware patient has been deteriorating in past 6 months. Will hold off on checking ABG currently as patient is going back on BiPAP for nap. Son would like to speak with other family members regarding ultimate decision for patient care. In the meantime, will continue to encourage BiPAP use with naps and nighttime when sleeping. Continue oxygen by nasal cannula during the day. Repeat chest x-ray yesterday with no significant change with stable small bilateral loculated pleural effusions and stable diffuse lung disease. MBS was completed on 04/25/2019 with recommendation for easy to chew and nectar thickened liquids. Continue PT/ OT as patient tolerates. We did discuss possibility of moving to hospice/comfort measures if patient unable to tolerate BiPAP. Continue to monitor for now. Son expresses knowledge patient will most likely not be able to return to [facility] for rehab based on his current condition. (2) Altered mental status: Qualifiers: Altered mental status type: unspecified Qualified Code(s): R41.82 - Altered mental status, unspecified Code(s): R41.82 - Altered mental status, unspecified Status: Acute Assessment and Plan: Mongo related to respiratory failure and elevated pCO2. Continue treatment as noted above. (3) CHF (congestive heart failure): Qualifiers: Heart failure type: diastolic Heart failure chronicity: acute on chronic Qualified Code(s): I50.33 - Acute on chronic diastolic (congestive) heart failure Code(s): I50.9 - Heart failure, unspecified Status: Acute Assessment and Plan: Echocardiogram in February 2019 with EF greater than 70%, diastolic dysfunction grade 2 and mild to moderate mitral valve regurgitation. Continue IV Lasix. Repeat chest x-ray yesterday with no significant change as noted above. Will monitor. (4) Diabetes mellitus: Qualifiers: Diabetes mellitus type: type 2 Diabetes mellitus fci insulin use: without ferry terminal agent use Diabetes mellitus complication status: without complication Qualified Code(s): E11.9 - Type 2 diabetes mellitus without complications Code(s): E11.9 - Type 2 diabetes mellitus without complications Status: Chronic Assessment and Plan: HgbA1C 5.5 in February 2019. Glucose reviewed on 04/29/2019. Glucose remains in low-normal range with dextrose in IV fluids adjusted to D5 yesterday. Continue to monitor. Will try to wean off IV fluids as long as glucose allows. Hypoglycemia protocol available as needed. Will continue to monitor. (5) Hypokalemia: Code(s): E87.6 - Hypokalemia Status: Acute Assessment and Plan: Potassium 3.8 today. Continue oral replacement. Continue to monitor. (6) HTN (hypertension): Qualifiers: Hypertension type: essential hypertension Qualified Code(s): I10 - Essential (primary) hypertension Code(s): I10 - Essential (primary) hypertension Status: Acute Assessment and Plan: Blood pressure reviewed on 04/29/2019. Blood pressure remains stable. Continue to monitor with IV Lasix place. (7) Atrial fibrillation: Qualifiers: Atrial fibrillation type: longstanding persistent Qualified Code(s): I48.11 - Longstanding persistent atrial fibrillation Code(s): I48.91 - Unspecified a
[2019-04-29 12:56] LABS: Glucose Point of Care 112 (65-105)
[2019-04-29 17:15] LABS: Glucose Point of Care 87 (65-105)
[2019-04-29] MEDS: ATORVASTATIN 40 MG TABLET PO (20:52)
[2019-04-29] MEDS: TRAZODONE HCL 50 MG TABLET PO (20:52)
[2019-04-29] MEDS: LORAZEPAM INJ 2 MG/ML VIAL 0.5 MG IV PUSH (21:02)
[2019-04-29 22:54] LABS: Glucose Point of Care 97 (65-105)
[2019-04-30] VITALS (18 sets, daily range): BP systolic 98–102; BP diastolic 46–62; PULSE 54–88; RESP 12–20; TEMP 36.1–36.6; O2SAT 92–96
[2019-04-30] MEDS: DEXTROSE 5%/0.9% SOD CHL 1,000 ML 50 ML IV CONT ×2 (00:10→20:03)
[2019-04-30] MEDS: IPRATROPIUM BR 0.02% INH SOLN 0.5 MG/2.5 ML VIAL INHALATION ×4 (01:06→20:39)
[2019-04-30] MEDS: TOLNAFTATE 1% POWDER 45 GM BTL 1 APPLIC TOPICAL ×2 (02:00→08:48)
[2019-04-30] MEDS: LEVOTHYROXINE SODIUM 25 MCG TABLET PO (05:31)
[2019-04-30] MEDS: LEVOTHYROXINE SODIUM 12.5 MCG TABLET PO (05:31)
[2019-04-30 08:19] LABS: Glucose Point of Care 89 (65-105)
[2019-04-30 08:37] LABS: Blood Urea Nitrogen 20 mg/dL (9-20); Calcium 7.9 mg/dL (8.4-10.2); Carbon Dioxide > 40 mmol/L (22-30); Chloride 90 mmol/L (98-107); Estimated CRCL calculation 68 ml/min; Estimated Glomerular Filt Rate > 60; Glucose 90 mg/dL (75-110); Potassium 3.9 mmol/L (3.4-5.0); Sodium 136 mmol/L (137-145)
[2019-04-30] MEDS: ASPIRIN 81 MG ENTERIC TABLET PO (08:47)
[2019-04-30] MEDS: POTASSIUM CHLORIDE 20 MEQ TABLET.ER 40 MEQ PO ×2 (08:47→16:58)
[2019-04-30] MEDS: FOLIC ACID 0.4 MG TABLET 0.8 MG PO (08:47)
[2019-04-30] MEDS: SERTRALINE HCL 50 MG TABLET PO (08:48)
[2019-04-30] MEDS: TAMSULOSIN HCL 0.4 MG CAPSULE 0.8 MG PO (08:48)
[2019-04-30] MEDS: PANTOPRAZOLE SODIUM IV 40 MG VIAL IV PUSH (08:48)
[2019-04-30] MEDS: APIXABAN 5 MG TABLET PO (08:48)
[2019-04-30] MEDS: THERAPEUTIC MULTIVITAMINS/MINERALS TAB (*BKC) 1 TABLET PO (08:48)
[2019-04-30] MEDS: EUCERIN CREAM 120 GM JAR 1 APPLIC TOPICAL (08:48)
[2019-04-30] MEDS: FERROUS SULFATE 324 MG TABLET 325 MG PO (08:49)
[2019-04-30] MEDS: FINASTERIDE 5 MG TABLET PO (08:49)
[2019-04-30] MEDS: AMIODARONE HCL 200 MG TABLET PO (08:49)
[2019-04-30] MEDS: FUROSEMIDE INJ 40 MG/4 ML VIAL IV PUSH (08:50)
[2019-04-30] MEDS: DOCUSATE SODIUM 100 MG CAPSULE PO (08:51)
--- NOTE | 2019-04-30 08:52 | PM.IMPN ---
Progress Note: A&P Assessment and Plan (1) Acute respiratory failure: Qualifiers: Respiratory failure complication: hypoxia and hypercapnia Qualified Code(s): J96.01 - Acute respiratory failure with hypoxia; J96.02 - Acute respiratory failure with hypercapnia Code(s): J96.00 - Acute respiratory failure, unspecified whether with hypoxia or hypercapnia Status: Acute Assessment and Plan: Did not use BiPAP last night. Currently on oxygen by nasal cannula at 4 L. MBS completed on 04/25/2019 with recommendation for easy to to and nectar thickened liquids. Had long discussion with son yesterday regarding patient's overall status. Receive notification from care coordination this morning family would like to meet with hospice. Arrangements have been made for hospice meeting this morning. Will continue nebulizer treatments. Continue PT/OT as tolerates. Await results of hospice meeting. (2) Altered mental status: Qualifiers: Altered mental status type: unspecified Qualified Code(s): R41.82 - Altered mental status, unspecified Code(s): R41.82 - Altered mental status, unspecified Status: Acute Assessment and Plan: [place]prise to be related to respiratory failure and elevated pCO2. Continue treatment as noted above. Hospice meeting today. (3) CHF (congestive heart failure): Qualifiers: Heart failure type: diastolic Heart failure chronicity: acute on chronic Qualified Code(s): I50.33 - Acute on chronic diastolic (congestive) heart failure Code(s): I50.9 - Heart failure, unspecified Status: Acute Assessment and Plan: Echocardiogram in February 2019 with EF greater than 70%, diastolic dysfunction grade 2 and mild to moderate mitral valve regurgitation. Continue IV Lasix. Repeat chest x-ray on 04/28/2019 with no significant change as noted above. Will monitor. (4) Diabetes mellitus: Qualifiers: Diabetes mellitus type: type 2 Diabetes mellitus fdc insulin use: without fdc use Diabetes mellitus complication status: without complication Qualified Code(s): E11.9 - Type 2 diabetes mellitus without complications Code(s): E11.9 - Type 2 diabetes mellitus without complications Status: Chronic Assessment and Plan: HgbA1C 5.5 in February 2019. Glucose reviewed on 04/30/2019. Glucose remains in low-normal range with dextrose in IV fluids adjusted to D5. Will continue to monitor. Will leave IV fluids in place while awaiting hospice meeting. Hypoglycemia protocol available as needed. Will continue to monitor. (5) Hypokalemia: Code(s): E87.6 - Hypokalemia Status: Acute Assessment and Plan: Potassium 3.9 today. Continue oral replacement. (6) HTN (hypertension): Qualifiers: Hypertension type: essential hypertension Qualified Code(s): I10 - Essential (primary) hypertension Code(s): I10 - Essential (primary) hypertension Status: Acute Assessment and Plan: Blood pressure reviewed on 04/30/2019. Blood pressure remains stable. Continue to monitor with IV Lasix place. (7) Atrial fibrillation: Qualifiers: Atrial fibrillation type: longstanding persistent Qualified Code(s): I48.11 - Longstanding persistent atrial fibrillation Code(s): I48.91 - Unspecified atrial fibrillation Status: Acute Assessment and Plan: Telemetry reviewed on 04/30/2019 with sinus rhythm with heart rate remaining controlled. Will continue oral amiodarone. Continue Eliquis for anticoagulation. Will discontinue telemetry. (8) Hypothyroid: Qualifiers: Hypothyroidism type: unspecified Qualified Code(s): E03.9 - Hypothyroidism, unspecified Code(s): E03.9 - Hypothyroidism, unspecified Status: Chronic Assessment and Plan: TSH normal in March so will not repeat. Will continue oral levothyroxine. (9) Cirrhosis: Qualifiers:
--- NOTE | 2019-04-30 11:29 | PCOTNOTE ---
Attempted to see patient for OT, however, upon entering room patient's family declined to wake patient up to participate in OT. Patient not seen this date for OT.
[2019-04-30 12:25] LABS: Glucose Point of Care 90 (65-105)
--- NOTE | 2019-04-30 13:11 | PCPTNOTE ---
The PT treatment was unable to be completed today due to patient unable to stay awake and participate. Will continue per Plan of Care frequency and duration.
[2019-04-30] MEDS: LORAZEPAM INJ 2 MG/ML VIAL 0.5 MG IV PUSH (16:39)
[2019-04-30 16:42] LABS: Glucose Point of Care 71 (65-105)
--- NOTE | 2019-04-30 20:49 | PM.DS ---
DS: Diagnosis Admitting Diagnosis Admitting Diagnosis: Acute respiratory failure with hypoxia Discharge Diagnosis (1) Acute respiratory failure: Qualifiers: Respiratory failure complication: hypoxia and hypercapnia Qualified Code(s): J96.01 - Acute respiratory failure with hypoxia; J96.02 - Acute respiratory failure with hypercapnia Code(s): J96.00 - Acute respiratory failure, unspecified whether with hypoxia or hypercapnia Status: Acute (2) Altered mental status: Qualifiers: Altered mental status type: unspecified Qualified Code(s): R41.82 - Altered mental status, unspecified Code(s): R41.82 - Altered mental status, unspecified Status: Acute (3) CHF (congestive heart failure): Qualifiers: Heart failure chronicity: acute on chronic Heart failure type: diastolic Qualified Code(s): I50.33 - Acute on chronic diastolic (congestive) heart failure Code(s): I50.9 - Heart failure, unspecified Status: Acute (4) Diabetes mellitus: Qualifiers: Diabetes mellitus complication status: without complication Diabetes mellitus cloud services architect insulin use: without cloud services architect use Diabetes mellitus type: type 2 Qualified Code(s): E11.9 - Type 2 diabetes mellitus without complications Code(s): E11.9 - Type 2 diabetes mellitus without complications Status: Chronic (5) Hypokalemia: Code(s): E87.6 - Hypokalemia Status: Acute (6) HTN (hypertension): Qualifiers: Hypertension type: essential hypertension Qualified Code(s): I10 - Essential (primary) hypertension Code(s): I10 - Essential (primary) hypertension Status: Acute (7) Atrial fibrillation: Qualifiers: Atrial fibrillation type: longstanding persistent Qualified Code(s): I48.11 - Longstanding persistent atrial fibrillation Code(s): I48.91 - Unspecified atrial fibrillation Status: Acute (8) Hypothyroid: Qualifiers: Hypothyroidism type: unspecified Qualified Code(s): E03.9 - Hypothyroidism, unspecified Code(s): E03.9 - Hypothyroidism, unspecified Status: Chronic (9) Cirrhosis: Qualifiers: Ascites presence: with ascites Hepatic cirrhosis type: unspecified hepatic cirrhosis Qualified Code(s): K74.60 - Unspecified cirrhosis of liver; R18.8 - Other ascites Code(s): K74.60 - Unspecified cirrhosis of liver Status: Acute DS: Summary Hospital Course Reason for hospitalization: Altered mental status. Hospital Course: Date of Service of Discharge: April 30, 2019. History of Present Illness: Patient is a 73-year-old recently hospitalized in February for altered mental status with MRI showing central atrophy at that time who was brought to the emergency room from [facility] today for altered mental status. Patient was also noted to have difficulty breathing. Patient noted to have hypoxia in the emergency room. Also noted to have leg edema. Additional information unobtainable due to patient condition. Patient was admitted for further evaluation and treatment of altered mental status and respiratory difficulty. Course in Hospital: Patient was initially admitted to the intermediate care unit. He was started on IV Lasix along with BiPAP. He additionally was given respiratory treatments. CTA showed bilateral small pleural effusions with large amount of loculated fluid in the right major fissure corresponding to findings on chest x-ray. After initial treatment with BiPAP continuously, patient did improve and was able to transition to oxygen by nasal cannula. Patient became more awake and alert with decrease in pCO2. He did have MBS completed on 04/25/2019 with recommendation for easy to chew and nectar thickened liquids. He was able to transfer to the medical floor where he remained for the duration of his stay. Unfortunately, patient would not use BiPAP at night. He subsequently had incre
== END 2019-04-30 20:59 | disposition hospice, inpatient (51) | DRG 291 ==
LOC: ANHED 22:30 → ANHIMU 04-23 01:09 → ANH3MED 04-27 07:57 → ANHIMU 05-31 08:28
PROVIDERS: Emergency Medicine; Internal Medicine; Admitting Provider Internal Medicine; Emergency Provider Emergency Medicine; Visit Provider Hospitalist
DX: I11.0 Hypertensive heart disease with heart failure (principal); J96.01 Acute respiratory failure with hypoxia; J96.02 Acute respiratory failure with hypercapnia; R18.8 Other ascites; I50.33 Acute on chronic diastolic (congestive) heart failure; K74.60 Unspecified cirrhosis of liver; R41.82 Altered mental status, unspecified; E87.6 Hypokalemia; I48.91 Unspecified atrial fibrillation; E03.9 Hypothyroidism, unspecified; E11.649 Type 2 diabetes mellitus with hypoglycemia without coma; I71.4 Abdominal aortic aneurysm, without rupture; M19.90 Unspecified osteoarthritis, unspecified site; N40.0 Benign prostatic hyperplasia without lower urinary tract symptoms; F32.9 Major depressive disorder, single episode, unspecified; I27.20 Pulmonary hypertension, unspecified; Z66 Do not resuscitate; Z28.21 Immunization not carried out because of patient refusal; Z90.49 Acquired absence of other specified parts of digestive tract; Z87.891 Personal history of nicotine dependence
CPT/HCPCS: 36415; 36600; 71045; 71046; 71260; 80048; 80053; 80069; 82140; 82375; 82728; 82805; 83050; 83540; 83550; 83735; 83880; 84132; 84484; 85025; 85027; 85610; 85730; 87081; 87804; 92526; 92610; 92611; 93005; 94002; 94003; 94640; 94660; 96374; 96376; 97110; 97161; 97165; 97530; 97535; 99285; A9270; C9113; G0378; J1650; J1940; J2060; J3475; J3480; J7042; Q9967

== ENCOUNTER 2019-04-30 20:59 | HOS | payer OTHER, SELFPAY ==
[2019-04-30] MEDS: LORAZEPAM INJ 2 MG/ML VIAL 0.5 MG IV PUSH (22:00)
--- NOTE | 2019-04-30 22:24 | PC.NURSE ---
Pt readmitted on hospice
[2019-05-01] MEDS: LORAZEPAM INJ 2 MG/ML VIAL 0.5 MG IV PUSH ×5 (01:01→21:18)
[2019-05-01] MEDS: MORPHINE SULFATE 2 MG/ML INJ 1 MG IV PUSH ×2 (04:13→23:54)
[2019-05-01 04:19] VITALS: BMI 31.7
[2019-05-01] MEDS: BISACODYL 10 MG SUPPOSITORY RECTAL (09:38)
--- NOTE | 2019-05-01 10:23 | PM.IMHP ---
H&P: HPI History of Present Illness Chief complaint: respiratory failure Narrative: Joe Vigil is a 73 year old male was readmitted [facility] on April 22 with mental status changes and acute respiratory failure. He was thought to be in congestive heart failure and given furosemide for diuresis. He has suspected sleep apnea was treated with BiPAP which he did not tolerate well. As he failed to improve with appropriate treatment, as documented by continue respiratory failure with hypoxemia and hypercarbia, and inability to tolerate adequate BiPAP, and his wishes not to be intubated for respiratory failure, his son Russel who is power of tool design draftsperson opted for comfort care. Review of Systems Review of Systems: ROS unobtainable: unobtainable due to mental status PMFSH Past Medical History Medical History Abdominal aortic aneurysm Arthritis Atrial fibrillation BPH (benign prostatic hyperplasia) Cataract CHF (congestive heart failure) Echo 02/2019 showing EF 70% with moderate AI and MR. Diastolic dysfunction grade II and moderate RA and RV enlargement. Cirrhosis Cyst Removed Depression Diabetes mellitus Foot fracture, right Gallbladder disease HLD (hyperlipidemia) HTN (hypertension) Hypothyroid Pneumonia Seasonal allergies Severe pulmonary arterial systolic hypertension Surgical History Surgical History H/O left knee surgery History of cholecystectomy History of esophagogastroduodenoscopy (EGD) 04/2018 showing gastritis Family History Family History Sibling Colon cancer Mother Congestive heart failure Father Acute myocardial infarction Social History Social History Social History: He has 1 son Russel who is his power tool design draftsperson. The patient is a DNI. His May of 2017. He was staying at SNF from his last hospitalization Smoking packs per day: 1 Smoking cigarettes per day: 20.0 Years smoked: 30 Smoking pack-years: 30.00 Smoking status: Former smoker Tobacco type: cigarettes Smoking end date: 02/26/03 Alcohol intake: never Substance use: never Substance use type: does not use Additional living arrangements comments: He lives in [place] alone and had caregivers that come 3 times per week. His in 05/2017. He has one son, Srinivasa. Additional occupation/education comments: Use to work for a [employer] Gender identity (if verbalized by the patient): Male Spiritual care concerns: No Agree to blood products: Yes Meds Home Medications and Allergies Home Medications Medication Instructions Recorded Confirmed Type No Home Medications 04/30/19 04/30/19 History Allergies Allergy/AdvReac Type Severity Reaction Status Date / Time Penicillins Allergy Unknown Unknown Verified 04/02/19 10:49 Exam Narrative: Exam Narrative: HEENT: PERRL, pharyngeal mucosa pink and dry. Sclerae nonicteric NECK: No JVD, adenopathy, or thyromegaly CHEST: Coarse breath sounds. Mildly tachypneic. HEART: NL S1/S2, regular, no murmur ABDOMEN: BS hypoactive, soft, nontender, no mass, no bruits EXTREMITIES: No cyanosis, edema, or clubbing NEUROLOGIC: CN intact and symmetric to inspection. MUSCULOSKELETAL: Tone and strength symmetric. PSYCH: Drowsy, responds only to noxious stimuli Assessment and Plan Assessment and plan (1) Palliative care by specialist: Code(s): Z51.5 - Encounter for palliative care Status: Acute Assessment and Plan: Requires GIP status due to need for continuous IV morphine and scheduled IV lorazepam to control dyspnea and anxiety (2) Atrial fibrillation: Qualifiers: Atrial fibrillation type: longstanding persistent Qualified Code(s): I48.11 - Longstanding persistent atrial fibrillation
[2019-05-01] MEDS: GLYCOPYRROLATE INJ (*SP) 0.2 MG/ML VIAL IV PUSH (23:55)
[2019-05-02] MEDS: LORAZEPAM INJ 2 MG/ML VIAL 0.5 MG IV PUSH ×2 (00:45→03:41)
[2019-05-02] MEDS: MORPHINE SULFATE 2 MG/ML INJ 1 MG IV PUSH (03:42)
--- NOTE | 2019-05-02 04:17 | PC.NURSE ---
At 0348 pt was found to have passed. kiln maintenance notified and warehouse representative called. Pts son called.
--- NOTE | 2019-05-02 05:58 | PC.NURSE ---
Dr. Julien was contacted via the hospice nurse. The pts son came and visited and filled out the appropriate paperwork. Pt was brought down to the [facility] [place].
--- NOTE | 2019-06-15 18:26 | PM.DDS ---
Discharge Sum: Prov Provider Primary care physician: UNKNOWN,DOCTOR Admitting provider: Art Julien MD Discharge Sum: Diag Contributing Factors (1) Acute respiratory failure: (2) Atrial flutter: (3) Encephalopathy: (4) Cirrhosis: (5) Diabetes mellitus: (6) CHF (congestive heart failure): Discharge Sum: Summary Date and Time Date of admission: 04/30/19 20:59 Summary Details: Patient was admitted to inpatient hospice care service. Medications were titrated to comfort. Patient peacefully. Additional Data Attending physician: Art Julien MD
== END 2019-05-02 06:00 | disposition expired | DRG 189 ==
LOC: ANH3MED 21:33
PROVIDERS: Admitting Provider Internal Medicine; Visit Provider Internal Medicine
DX: J96.02 Acute respiratory failure with hypercapnia (principal); I50.33 Acute on chronic diastolic (congestive) heart failure; I48.11 Longstanding persistent atrial fibrillation; I48.92 Unspecified atrial flutter; G93.40 Encephalopathy, unspecified; R18.8 Other ascites; I11.0 Hypertensive heart disease with heart failure; Z51.5 Encounter for palliative care; K74.60 Unspecified cirrhosis of liver; E11.9 Type 2 diabetes mellitus without complications; E03.9 Hypothyroidism, unspecified; E78.5 Hyperlipidemia, unspecified; N40.0 Benign prostatic hyperplasia without lower urinary tract symptoms; M19.90 Unspecified osteoarthritis, unspecified site; I71.4 Abdominal aortic aneurysm, without rupture; Z87.891 Personal history of nicotine dependence; Z90.49 Acquired absence of other specified parts of digestive tract
CPT/HCPCS: A9270; J2060; J2270